=== PATIENT | female | born 1940 | race Two or more races ===

== ENCOUNTER → 2024-04-14 14:38 | Outpatient (REF) | payer MEDICARE, MEDICAID, SELFPAY | LOC: CLAB 14:38 | PROVIDERS: ATTENDING PHYSICIAN Surgery | DX: N64.52 Nipple discharge (principal); N63.0 Unspecified lump in unspecified breast | CPT/HCPCS: 88305 ==

== ENCOUNTER → 2024-06-21 11:05 | Outpatient (REF) | payer MEDICARE, MEDICAID, SELFPAY ==
--- NOTE | 2024-06-24 10:05 | OID.BR.INTR ---
OID Breast Navigator - Initial
- -
Date of Contact: 06/21/24
Met with patient and caregiver accompanying from [facility]. Patient has dementia. Will follow up as needed per protocol.
== END ==
LOC: WDC 11:05
PROVIDERS: ATTENDING PHYSICIAN Surgery
DX: N63.20 Unspecified lump in the left breast, unspecified quadrant (principal); N63.22 Unspecified lump in the left breast, upper inner quadrant
CPT/HCPCS: 88112

== ENCOUNTER 2024-06-29 17:30 | Inpatient (IN) | payer MEDICARE, OTHER, SELFPAY ==
[2024-06-29] VITALS (11 sets, daily range): BP systolic 98–135; BP diastolic 52–75
--- NOTE | 2024-06-29 13:24 | ED.GENMED ---
History of Present Illness
General
Chief Complaint: Breast Problem
Source: patient and records
Time Seen by Provider: 06/29/24 13:14
History of Present Illness
History of Present Illness:
83-year-old female with past medical history of dementia and chronic left hemiplegia status post left breast biopsy presenting to the ER for evaluation of significant erythema, edema and purulent drainage concerning for left breast abscess. Patient
had her biopsy done on June 23 and has reportedly been worsening since that time. Patient resides at [facility] and they sent the patient to the ER for further evaluation with anticipated admission for antibiotics, breast consultation and
interventional radiology for aspiration and drainage of suspected abscess. Patient is unable to provide any history due to her dementia. She is otherwise denying pain or any other concerns at this time
Past History
Past History
ED Past Medical History: Cancer and Other (Dementia, chronic left hemiplegia)
Social History
Tobacco: Non-smoker
Alcohol: None
Drug: None
Living: correction
Employment: Retired
Review of Systems
Review of Systems
All Other Systems: ROS reviewed and negative except as documented in HPI and ROS
Phy Exam
Physical Exam
Physical Exam:
GENERAL: Alert , in no apparent distress
EYE: conjunctiva clear
NECK: Supple
ENT: o/p clr, mmm.
CARDIAC: Regular rate and rhythm
LUNGS: Clear breath sounds bilaterally, no acute respiratory distress, no wheezes/rales/rhonchi
Chest wall: Exam was chaperoned by ED STEPHANE Espinoza -left breast is significantly edematous, erythematous with a bandage over the lateral aspect of the breast. Malodorous purulent drainage. Patient reports no pain at rest but moderate pain with
palpation
NEUROLOGICAL: Alert and oriented
SKIN: Warm and dry, skin intact.
MUSCULOSKELETAL: Chronic contracture to the left upper extremity. Easily palpable radial pulse
PSYCH: Normal and appropriate interaction.
Scores
Heart Failure Risk
Heart Failure Risk Score: Not Applicable
Heart Score for Chest Pain Patients
STEMI patient?: Not applicable
Withdrawal Assessment of Alcohol
Withdrawal Assessment Completed?: Not applicable
Course
Orders/Labs/Results
Orders:
Orders
06/29/24 13:31
Consult Interventional Radiology [IRAD CONSULT] Urgent
Consulting Provider: Todd Garay
Was physician already notified: Yes
Reason for Consult/Procedure: Left breast aspiration
Acknowledgement that appropriate orders are entered: Yes
Fluid Culture with Gram Stain Urgent
KARI Source: Fluid
Specimen Description:
Comment: left breast
06/29/24 14:06
Basic Metabolic Panel Urgent
Complete Blood Count/With Diff Urgent
Lactic Acid Q4H
Comment: CANCEL 2nd LACTIC ACID IF 1st LACTIC ACID IS LESS THAN 2
Blood Culture Urgent
KARI Source: Blood/Venous
Specimen Description:
06/29/24 14:08
Blood Culture Routine
KARI Source: Blood/Venous
Specimen Description:
06/29/24 14:47
0.9% Sodium Chloride 1000 ml [Nss] 1,000 ml IV BOLUS
06/29/24 17:30
Lactic Acid Q4H
Comment: CANCEL 2nd LACTIC ACID IF 1st LACTIC ACID IS LESS THAN 2
Abnormal Lab Results
06/29/24
14:06
WBC 17.5 H 10^3/uL
(4.8-10.8)
MCH 26.8 L pg
(27.0-31.0)
MCHC 32.3 L g/dL
(33.0-37.0)
MPV 10.9 H fL
(7.4-10.4)
Abs Immat Gran (auto) 0.1 H 10^3/uL
(0-0.05)
Absolute Neuts (auto) 13.5 H 10^3/uL
(1.4-6.5)
Absolute Monos (auto) 1.9 H 10^3/uL
(0.1-0.6)
Neutrophils % 77.1 H %
(42.2-75.2)
Lymphocytes % 10.1 L %
(20.5-51.1)
Monocytes % 10.6 H %
(1.7-9.3)
Sodium 133 L mmol/L
(135-145)
BUN 18 H mg/dl
(7-17)
Creatinine 0.5 L mg/dL
(0.6-1.0)
Glucose 108 H mg/dl
(70-99)
Lactic Acid 2.3 H mmol/L
(0.7-2.0)
06/29/24 14:06
06/29/24 14:06
Vital Signs
Initial and Last Documented VS:
Initial Vital Signs
Resp
18
06/29/24 13:14
Last Documented Vital Signs
Temp Pulse Resp BP Pulse Ox
98.4 F 98 19 115/59 97
06/29/24 14:26 06/29/24 14:26 06/29/24 14:26 06/29/24 14:26 06/29/24 14:26
MDM/Problems Addressed
Differential Diagnosis Includes:
Left breast abscess, cellulitis, malignancy negative
MDM/Problems Addressed:
83-year-old female presenting to the emergency department from [facility] to be evaluated with anticipated admission for left breast abscess/cellulitis. Will notify patient's breast surgeon, Dr. Spaulding, to see if any further testing is
required. I will also notify interventional radiology so we can obtain fluid cultures to initiate antibiotics. Patient will likely need admission to hospitalist service and they can consult infectious disease as necessary.
*Pulse Oximetry
Patient hypoxic: no
*Critical Care Note
Total Time (30-74mins, 75-104mins- exclusive of procedures): Not Applicable
Data Reviewed
Review of Other/Old Records Reveals: Records and Radiology Studies
Source: records and ambulance crew
Comment
Comment:
Patient's white blood cell count 17.5. Lactic acid 2.3. IV fluids were ordered with concern for sepsis
Patient Management
Discussion with other providers: Hospitalist and [employer] Deck[employer]
Escalation/DeEscalation of care consider admission/obs:
1335 - Spoke with Dr. Spaulding who is in agreement with treatment plan thus far. No further recommendations at this time. IR was also notified to help expedite aspiration so abx can be initiated.
Hospitalist team was notified and accepts for continued evaluation and treatment.
ED Attending Note
-
Portions of this chart may have been created with voice recognition software.� Occasional wrong word or��sound alike� substitutions may have occurred due to the inherent limitations of voice recognition software.
Discharge Plan
Departure
Patient Disposition: Admit
Date of Disposition: 06/29/24
Time of Disposition: 14:22
Presentation/result/management discussed w/ accepting MD/DO: Hospitalist
Discharge Problem:
Abscess of left breast, Cellulitis of left breast
Prescriptions:
No Action
sennosides [senna] 8.6 mg Tablet
8.6 mg PO QPM
acetaminophen [Tylenol] 325 mg Tablet
650 mg PO Q4HPRN PRN (Reason: mild pain/fever >100.4)
polyethylene glycol 3350 [Miralax] 17 gram Powder In Packet
17 g PO DAILY
sulfamethoxazole-trimethoprim [Bactrim DS] 800-160 mg Tablet
1 tab PO BID
Patient Comments:
06/29/24: starting today, take 1 tab twice a day for 7 days
magnesium hydroxide [Milk of Magnesia] 400 mg/5 mL Suspension
30 ml PO DAILYPRN PRN (Reason: constipation)
bisacodyl [Dulcolax (bisacodyl)] 10 mg Suppository
10 mg KS DAILYPRN PRN (Reason: constipation, mom ineffective)
Fleet Enema 19-7 gram/118 mL Enema
118 ml KS DAILYPRN PRN (Reason: if dulcolax ineffective)
Interventions
Interventions:
*Risk Screen - Suicide Last Done: 06/29/24 13:17
*General Assessment Last Done: 06/29/24 13:17
*Neglect/Abuse Screening Last Done: 06/29/24 13:17
*ED COVID-19 Vaccine History Last Done: 06/29/24 13:17
ED-Skin Assessment Last Done: 06/29/24 13:17
Discharge Date and Time
Print Language: PALESTINIAN
[2024-06-29 14:20] LABS: % Basophils 0.5 % (0-2); % Eosinophils 1.2 % (0-6); % Immature Granulocytes 0.5 % (0-0.5); % Lymphocytes 10.1 % (20.5-51.1); % Monocytes 10.6 % (1.7-9.3); % Neutrophils 77.1 % (42.2-75.2); Absolute Basophils 0.1 10^3/uL (0-0.2); Absolute Eosinophils 0.2 10^3/uL (0-0.7); Absolute Immature Granulocytes 0.1 10^3/uL (0-0.05); Absolute Lymphocytes 1.8 10^3/uL (1.2-3.4); Absolute Monocytes 1.9 10^3/uL (0.1-0.6); Absolute Neutrophils 13.5 10^3/uL (1.4-6.5); Hematocrit 37.5 % (37.0-47.0); Hemoglobin 12.1 g/dL (12.0-16.0); Mean Corp Hgb Conc. 32.3 g/dL (33.0-37.0); Mean Corpuscular Hgb 26.8 pg (27.0-31.0); Mean Platelet Volume 10.9 fL (7.4-10.4); Nucleated Red Blood Cells % 0 %; Platelet Count 399 10^3/uL (130-400); Red Blood Cell Count 4.52 10^6/uL (4.20-5.40); Red Cell Dist. Width 14.1 % (11.5-14.5); White Blood Cell Count 17.5 10^3/uL (4.8-10.8)
[2024-06-29 14:42] LABS: Lactic Acid 2.3 mmol/L (0.7-2.0)
[2024-06-29 14:43] LABS: Blood Urea Nitrogen 18 mg/dl (7-17); Calcium 9.1 mg/dl (8.4-10.2); Carbon Dioxide 27 mmol/L (22-30); Chloride 101 mmol/L (98-107); Estimated Creatinine Clearance 70 ml/min; Glucose 108 mg/dl (70-99); Sodium 133 mmol/L (135-145); eGFR > 60.00
[2024-06-29] MEDS: NSS 1000 IV (15:55)
--- NOTE | 2024-06-29 16:58 | HPS.HSE ---
Family Physician
-
Family Physician: Mateto Shah DO
Chief Complaint
-
Left breast cellulitis
History of Present Illness
Patient is 83 years old female is in the local nursing facility with dementia and left hemiplegia, who underwent left breast cyst biopsy and drain on June 23. Patient noted to develop significant erythema and induration in the site of biopsy with
later purulent discharge concerning for left breast abscess. Patient was sent to the emergency room. Presented afebrile hemodynamically stable, nontoxic-appearing. Patient was seen by interventional radiology and underwent guided biopsy with DAVID
drain placed.
Patient demented and not able to provide any additional history.
Medical History
Past Medical History
Past Medical History: Reports Other (Left hemiplegia? CVA. Dementia, COVID)
Past Surgical History: Reports None
Social History
Tobacco: Non-smoker
Alcohol: None
Drug: None
Personal: Single
Living: Jail
Family History
Family History: Not pertinent
Allergies / Home Medications
Allergies reflects when Allergies were last updated in [facility].
Home Medications with original date entered in [facility]
Allergy/Medication List:
Allergies
Allergy/AdvReac Type Severity Reaction Status Date / Time
No Known Allergies Allergy Verified 06/29/24 14:50
Home Medications
acetaminophen 325 mg tablet (Tylenol) 650 mg PO Q4HPRN PRN mild pain/fever >100.4 06/29/24
bisacodyl 10 mg rectal suppository (Dulcolax (bisacodyl)) 10 mg MI DAILYPRN PRN constipation, mom ineffective 06/29/24
magnesium hydroxide 400 mg/5 mL oral suspension (Milk of Magnesia) 30 ml PO DAILYPRN PRN constipation 06/29/24
polyethylene glycol 3350 17 gram oral powder packet (Miralax) 17 g PO DAILY 06/29/24
sennosides 8.6 mg tablet (senna) 8.6 mg PO QPM 06/29/24
sodium phosphates 19 gram-7 gram/118 mL enema (Fleet Enema) 118 ml MI DAILYPRN PRN if dulcolax ineffective 06/29/24
sulfamethoxazole 800 mg-trimethoprim 160 mg tablet (Bactrim DS) 1 tab PO BID 06/29/24
Review of Systems
-
A 12 point ROS was completed and negative except as noted: Yes
Physical Exam
Vital Signs
Vital Signs
Temp Pulse Resp BP Pulse Ox
98.4 F 95 23 121/59 91
06/29/24 14:26 06/29/24 16:30 06/29/24 16:30 06/29/24 16:15 06/29/24 16:01
Physical Exam
General: Well Developed, Well Nourished and No Apparent Distress
HEENT: NormoCephalic, Moist mucous membranes and Atraumatic
Respiratory: Clear
Cardiac: S1/S2 and Regular Rhythm; No Murmur or Rub
Breast: Other (Left breast with significant erythema and induration, wound with DAVID drain in place with hemorrhagic fluid)
GI: Soft, Non Tender, Non Distended and Normal Bowel Sounds; No Organomegaly
Rectal: Deferred by Provider
Musculoskeletal: No Clubbing, No Cyanosis and No Edema
Skin: No Rash
Neuro: Awake, Alert, Oriented (To name only) and Other (Left hemiparesis)
Laboratory Results
-
06/29/24 14:06
06/29/24 14:06
Laboratory Results
Lactic Acid 2.3 mmol/L (0.7-2.0) H 06/29/24 14:06
Impression/Plan
-
IMPRESSION:
Presentation with left breast abscess and cellulitis.
�S/p left breast cyst aspiration on 06/23 pathology consistent with acellular specimen with likely longstanding cyst, malignancy could not be excluded.
Mild hyponatremia sodium 133
Other conditions:
Chronic left hemiparesis following by COVID episode in 2021. According to son not documented CVA including long-term records.
Advanced dementia vascular versus senile type pain
Protein calorie malnutrition
PLAN:
Left breast cellulitis with abscess drained by interventional radiology on 06/29
Status post left breast cyst biopsy pathology as above
Nontoxic, nonseptic on presentation.
Broad-spectrum antibiotics vancomycin/Zosyn pending cultures
Consider ID consultation
Follow WBC count
Mild hyponatremia sodium 133
Appears to be euvolemic
Follow BMP in the morning.
If worsening consider further workup.
Advanced dementia
Chronic left hemiplegia for
Supportive care
CODE STATUS DNR
DVT prophylaxis heparin
--- NOTE | 2024-06-29 18:26 | PTCARENOTE ---
pt admitted from ED AO x1. Lungs diminished b/l shallow, poor effort. on RA. abd soft NT. incont b&B trace b/l pedal edema weak pp. Pt has LUE and hand contracture. lLeft lateral breast red and DAVID drain site dressing CDI, DAVID full with 50cc of SS
drainage
[2024-06-29] MEDS: SENOKOT 8.6 MG PO (19:46)
[2024-06-29] MEDS: VANCOCIN 535 MG IV (19:46)
[2024-06-29] MEDS: HEPARIN 5000 UNITS SC (19:47)
[2024-06-29] MEDS: ZOSYN 50 IV (19:48)
[2024-06-29 20:09] LABS: Lactic Acid 1.6 mmol/L (0.7-2.0)
--- NOTE | 2024-06-29 21:01 | PHA.VAN.IN ---
Assessment
- Assessment
Renal Function: Unknown baseline
Concomitant Antimicrobials: ZOSYN
- Previous Dosing Experience
Previous Regimen: NONE
AUC Dosing Plan
- Dosing Variables
Dosing Weight (kg): 74.5
Dosing CrCl (ml/min): 70
Vd coefficient (L/kg): 0.7
- Empiric Dosing
Initial / Loading Dose: 1750MG
Maintenance Regimen: 750MG IV Q12H
Estimated AUC (mcg*h/mL): 475
Estimated Peak (mcg*h/mL): 27.3
Estimated Trough (mcg/ml): 13.7
Estimated Half Life (H): 11.1
Pharmacokinetics Vancomycin I
- -
Patient Age: 83
Patient Sex: Female
Vancomycin Day #: 1
Indication: Skin And Soft Tissue ([L] BREAST CELLULITIS)
Requesting Provider: EUGENIO
Height / Weight:
Height 5 ft 8 in
Actual Weight 74.5 kg
- Vital Signs / Lab Results
Temp Pulse Resp BP Pulse Ox
98.8 F 110 18 135/75 95
06/29/24 18:26 06/29/24 18:26 06/29/24 18:26 06/29/24 18:26 06/29/24 18:26
Lab Results - Hematology
06/29/24
14:06
WBC 17.5 H
Lab Results - Chemistry
06/29/24
14:06
BUN 18 H
Creatinine 0.5 L
Estimated Creat Clear 70
06/29/24 06/29/24
14:06 19:50
Lactic Acid 2.3 H 1.6
Microbiology Results
06/29/24 15:33 Gram Stain - Preliminary
Breast - Left
[2024-06-30] MEDS: ZOSYN 50 IV ×4 (01:50→20:28)
[2024-06-30] MEDS: VANCOCIN 150 IV ×2 (05:41→17:45)
[2024-06-30 07:47] VITALS: BP 114/57
[2024-06-30] MEDS: MIRALAX 17 GRAMS PO (08:50)
[2024-06-30] MEDS: HEPARIN 5000 UNITS SC ×2 (08:50→20:26)
--- NOTE | 2024-06-30 12:03 | W.PN.HOSP.TC ---
Today's Communication/Plan
-
await cultures
cont vanco/zosyn
consider ID consult
Assessment / Plan
Assessment / Plan
pt is an 83 year old female
Left breast cellulitis with abscess ( Status post left breast cyst biopsy)--drained by interventional radiology on 06/29--cultures pending--cont vanco/zosyn--Consider ID consultation
Mild hyponatremia sodium 133--Appears to be euvolemic
Advanced dementia--daughter is POA
Chronic left hemiplegia for Supportive care--PT/OT
Chronic left hemiparesis following by COVID episode in 2021. According to son not documented CVA including [facility] records
Protein calorie malnutrition
CODE STATUS DNR
DVT prophylaxis heparin
Anticipated Discharge: > 48 hours
Subjective/Interval History
-
Date of Service: June 30, 2024
pt without c/o
Objective Data
-
Vital Signs:
max temp for 24 hours
06/29/24
13:15
Temp 99.1 F
Vital Signs
Temp Pulse Resp BP Pulse Ox
98.3 F 83 16 114/57 97
06/30/24 07:47 06/30/24 07:47 06/30/24 07:47 06/30/24 07:47 06/30/24 07:47
I&O
06/29/24 06/30/24 07/01/24
06:59 06:59 06:59
Intake Total 850 / 850
Output Total 340 / 340
Balance 510 / 510
Review of Systems
-
All other systems: Reviewed and negative
Physical Exam
-
General: Well Developed, Well Nourished and No Apparent Distress
HEENT: Normocephalic and Atraumatic
Respiratory: Clear to Auscultation; Negative Wheezes or Rhonchi
Cardiac: Regular Rhythm and S1/S2; Negative Murmur
Breast: Other (left breast firm and red, tender to touch--DAVID drain in place)
GI: Soft, Nontender, Nondistended and Normal Bowel Sounds
Musculoskeletal: No Clubbing, No Cyanosis and No Edema
Neuro: Awake
--- NOTE | 2024-06-30 12:28 | CM ---
Addendum entered by MAYE Connolly 06/30/24 12:41:
#To patient's floor, .
Original Note:
Reviewed chart, spoke with Yariel in admissions at [facility] to obtain information for assessment. Yariel confirmed that she is an MA-15 day bed hold. She transitioned call to floor so that baseline level of functioning could be obtained.
Spoke with one of patient's RNs, Mo, who stated that patient is fully dependent for bed mobility, Bernice Chair and does not ambulate, nathan for transfers and set up for eating. She was unsure of what patient's diet was previously.
Placed a call to patient's daughter, Cody on chart, who confirmed that family would like for patient to return to [facility] when medically cleared for discharge.
Plan: Case management will continue to follow and assist with discharge planning. Back to [facility] when patient is medically stable.
--- NOTE | 2024-06-30 12:30 | PHA.VAN.FU ---
Vancomycin Assessment / Plan
- Assessment
Renal Function: No New Labs Today
In the past 24 hrs, patient has been: Afebrile
Concomitant Antimicrobials: piperacillin/tazobactam
- Dosing Plan
Continue: Vanc 750mg Q12H
- Monitoring Plan
No level(s) ordered at this time: consider levels in next few days
- Follow Up
Pharmacy will continue to follow.
Vancomycin Follow UP
- -
Patient Age: 83
Patient Sex: Female
Vancomycin Day #: 2
Indication: Skin And Soft Tissue
Requesting Provider: Dr. Crowe
Pertinent Antimicrobial Allergies:
NKDA
Height / Weight:
Height 5 ft 8 in
Actual Weight 74.5 kg
- Vital Signs / Lab Results
Temp Pulse Resp BP Pulse Ox
98.3 F 83 16 114/57 97
06/30/24 07:47 06/30/24 07:47 06/30/24 07:47 06/30/24 07:47 06/30/24 07:47
Lab Results - Hematology
06/29/24
14:06
WBC 17.5 H
Lab Results - Chemistry
06/29/24
14:06
BUN 18 H
Creatinine 0.5 L
Estimated Creat Clear 70
06/29/24 06/29/24
14:06 19:50
Lactic Acid 2.3 H 1.6
Microbiology Results
06/29/24 15:33 Wound Culture - Preliminary
Breast - Left Gram Stain - Preliminary
--- NOTE | 2024-06-30 14:05 | PTOTSP ---
Per chart review, the patient is fully dependent and requires Maryam lift at baseline, non-ambulatory. No functional goals, therefore no PT needs. Will sign off.
[2024-06-30 15:35] VITALS: BP 117/65
--- NOTE | 2024-06-30 15:44 | W.PN.UPDATE ---
Update Note
Progress Note Update
The patient is an 83 Y/O female known to me who has history of multiple co-morbidities including severe dementia. Family accompanied her. She is a NH resident and staff noticed left breast bloody discharge. She had a core biopsy showing benign
inflammatory changes then underwent an ultrasound-directed aspiration showing a few atypical degenerated cells but no mason diagnosis of carcinoma. The NH called Dr. Esqueda Lala night and said the breast was red and swollen. We directed her to
the ED where a repeat US showed a large complex fluid collection. Her WBC were elevated and she had no signs of sepsis. She underwent IR aspiration and drain placement. Large amount of bloody pus was described and cultures sent. Preliminary report
shows no growth to date. Pt is on broad spectrum antibiotics. This abscess will need to be treated and resolved and then we can regroup about any further breast intervention.
[2024-06-30] MEDS: SENOKOT 8.6 MG PO (17:45)
[2024-06-30 23:15] VITALS: BP 108/52
[2024-07-01] MEDS: ZOSYN 50 IV ×3 (03:07→13:40)
[2024-07-01] MEDS: VANCOCIN 150 IV ×2 (05:55→17:04)
[2024-07-01 07:33] LABS: Hematocrit 32.3 % (37.0-47.0); Hemoglobin 10.8 g/dL (12.0-16.0); Mean Corp Hgb Conc. 33.4 g/dL (33.0-37.0); Mean Corpuscular Hgb 27.1 pg (27.0-31.0); Mean Corpuscular Volume 81.2 fL (81.0-99.0); Mean Platelet Volume 10.9 fL (7.4-10.4); Platelet Count 330 10^3/uL (130-400); Red Blood Cell Count 3.98 10^6/uL (4.20-5.40)
[2024-07-01 07:53] VITALS: BP 114/67
[2024-07-01 08:13] LABS: Blood Urea Nitrogen 11 mg/dl (7-17); Calcium 8.5 mg/dl (8.4-10.2); Carbon Dioxide 24 mmol/L (22-30); Chloride 104 mmol/L (98-107); Estimated Creatinine Clearance 70 ml/min; Glucose 123 mg/dl (70-99); Magnesium 2.1 mg/dl (1.6-2.3); Potassium 3.9 mmol/L (3.5-5.1); Sodium 134 mmol/L (135-145); eGFR > 60.00
--- NOTE | 2024-07-01 08:24 | PHA.VAN.FU ---
Vancomycin Assessment / Plan
- Assessment
Renal Function: Stable
WBC's are: WNL
In the past 24 hrs, patient has been: Afebrile
Concomitant Antimicrobials: piperacillin/tazobactam
- Dosing Plan
Continue: Vanc 750mg Q12H
- Monitoring Plan
No level(s) ordered at this time: consider levels in next few days
- Follow Up
Pharmacy will continue to follow.
Vancomycin Follow UP
- -
Patient Age: 83
Patient Sex: Female
Vancomycin Day #: 3
Indication: Skin And Soft Tissue
Requesting Provider: Dr. Crowe
Pertinent Antimicrobial Allergies:
NKDA
Height / Weight:
Height 5 ft 8 in
Actual Weight 74.5 kg
- Vital Signs / Lab Results
Temp Pulse Resp BP Pulse Ox
98.4 F 82 16 114/67 95
07/01/24 07:53 07/01/24 07:53 07/01/24 07:53 07/01/24 07:53 07/01/24 07:53
Lab Results - Hematology
06/29/24 07/01/24
14:06 07:13
WBC 17.5 H 10.0
Lab Results - Chemistry
06/29/24 07/01/24
14:06 07:13
BUN 18 H 11
Creatinine 0.5 L 0.6
Estimated Creat Clear 70 70
06/29/24 06/29/24
14:06 19:50
Lactic Acid 2.3 H 1.6
Microbiology Results
06/29/24 14:08 Blood Culture - Preliminary
Blood/Venous No Growth in 24 hours- Final report to follow
06/29/24 14:06 Blood Culture - Preliminary
Blood/Venous No Growth in 24 hours- Final report to follow
06/29/24 15:33 Wound Culture - Preliminary
Breast - Left Gram Stain - Preliminary
[2024-07-01] MEDS: HEPARIN 5000 UNITS SC ×2 (08:25→20:26)
[2024-07-01] MEDS: MIRALAX 17 GRAMS PO (08:25)
--- NOTE | 2024-07-01 10:12 | CM ---
Sent referral over to Yariel in admissions at [facility] for her review.
Plan: Case management will continue to follow and assist with discharge planning. Patient will return to [facility] when she is cleared for discharge.
--- NOTE | 2024-07-01 10:27 | W.PN.HOSP.TC ---
Addendum entered and electronically signed by Mckayla Early MD 07/01/24 13:50:
# No nutritional deficiency
Original Note:
Today's Communication/Plan
-
see A/P
Assessment / Plan
Assessment / Plan
A/P:
# Left breast cellulitis with abscess status post left breast cyst biopsy
L breast abscess drained by interventional radiology on 06/29
culture positive for MRSA
Cont vanco/zosyn
ID consult
# Mild hyponatremia
# Advanced dementia
daughter is POA
# Chronic left hemiparesis following by COVID in 2021. According to son not documented CVA [facility]
PT/OT
# Protein calorie malnutrition
CODE STATUS DNR
DVT prophylaxis heparin
Anticipated Discharge: 24 - 48 hours
Subjective/Interval History
-
Date of Service: July 01, 2024
Objective Data
-
Labs:
Laboratory Results
07/01/24
07:13
WBC 10.0
Hgb 10.8 L
Hct 32.3 L
Plt Count 330
Sodium 134 L
Potassium 3.9
Chloride 104
Carbon Dioxide 24
BUN 11
Creatinine 0.6
Glucose 123 H
Calcium 8.5
Vital Signs:
Vital Signs
Temp Pulse Resp BP Pulse Ox
36.9 C 82 16 114/67 95
07/01/24 07:53 07/01/24 07:53 07/01/24 07:53 07/01/24 07:53 07/01/24 07:53
I&O
06/30/24 07/01/24 07/02/24
06:59 06:59 06:59
Intake Total 850 / 850 1330 / 1330
Output Total 340 / 340 90 / 90
Balance 510 / 510 1240 / 1240
Review of Systems
-
All other systems: Reviewed and negative
Physical Exam
-
General: Well Developed, Well Nourished, No Apparent Distress, Comfortable and Conversant
HEENT: Normocephalic and Atraumatic
Respiratory: Clear to Auscultation and Non Labored Respirations; Negative Accessory Resp Muscle Use
Cardiac: Regular Rhythm and S1/S2; Negative Murmur
Breast: Other (left breast with DAVID drain in place)
GI: Soft, Nontender, Nondistended and Normal Bowel Sounds
Musculoskeletal: No Clubbing, No Cyanosis and No Edema
Neuro: Awake and Alert
Psych: Calm and Apparent Dementia; Negative Intact Judgement/Insight
Data Reviewed
-
Labs: Labs Reviewed by me
--- NOTE | 2024-07-01 12:04 | PN.CDI ---
CDI
- -
CDI:
Physician Documentation Request
Admit Date: 06/29/24 17:30
Dear Doctor Sharath,
Documentation includes the diagnosis of Protein calorie malnutrition.
To ensure the quality of the medical record, based on the above information and the recognized standards for malnutrition , could you please verify in your progress notes which of the following responses best reflects the patient's nutritional
status:
(Specify severity) Malnutrition is/was present and is a clinical diagnosis (please provide additional support in the medical record)
No nutritional deficiency
Other (please specify)
Baring Criteria ([facility] Hospitalist 2017)
2 or more criteria must be present for either
non severe or severe malnutrition
Note that the criteria differs related to the
presence of an acute or chronic illness
Acute Illness Chronic Illness
Energy Intake Non Severe: <75% for >7 days Non Severe: <75% for >1 month
Severe: <50% for >5 days Severe: <75% for >1 month
Weight Loss Non Severe: 1-2% over 1 week Non Severe: 5% over 1 month
5% over 1 month 7.5% over 3 months
7.5% over 3 months 10% over 6 months
1 year N/A 20% over 1 year
Severe: >2% over 1 week Severe: >5% over 1 month
>5% over 1 month >7.5% over 3 months
>7.5% over 3 months >10% over 6 months
1 year N/A >20% over 1 year
Body Fat Non Severe: Mild Decrease Non Severe: Mild Loss
Severe: Moderate Decrease Severe: Severe Loss
Muscle Mass Non Severe: Mild Decrease Non Severe: Mild Loss
Severe: Moderate Decrease Severe: Severe Loss
Fluid Accumulation Non Severe: Mild Accumulation Non Severe: Mild Accumulation
Severe: Moderate to severe Severe: Moderate to severe
accumulation accumulation
Reduced Roller Coaster Engineer Strength Non Severe: N/A Non Severe: N/A
Severe: Measurably reduced Severe: Measurably reduced
Additional criteria that can be used to Determine if Mild or Moderate Malnutrition ([employer]ck Manual 2018)
Mild Moderate Severe
Albumin gm/dl <3.0 gm/dl <2.5 gm/dl <2.0 gm/dl
Pre Albumin mg/dl <15 gm/dl <10 mg/dl <5.0 mg/dl
BMI <18.5 <17 <16
Use of terms such as suspected, likely, concern for, or probable (associated with a specific diagnosis that is being evaluated, monitored, or treated as if it exists) are acceptable and can be coded in the inpatient setting, when documented at the
time of discharge.
Thank you,
Sophie Colon RN BSN
CDI Specialist
tiger text
Please use your independent medical judgment in providing your response.
[2024-07-01 15:00] VITALS: BP 123/76
--- NOTE | 2024-07-01 15:47 | CON.ID ---
Addendum entered and electronically signed by Annie Stevens MD 07/01/24 17:14:
I personally performed a history and physical exam of the patient and discussed management with the resident. I reviewed the resident's note and agree with the documented findings and plan of care HPI/CC with the following additions/corrections. I
reviewed the medication history personally.
The surgical pathology outpatient was not consistent with malignancy.
Note she was started on bactrim outpatient prior to arrival here.
My physical exam is consistent with Dr Middleton.
A&P
Surgical site infection of L breast biopsy site with underlying abscess
-Wound/abscess culture: Few presumptive MRSA
-06/29 Blood cultures: NGTD
-Drain output 90 mL in past 24 hours
-stopped Zosyn. Continue vancomycin - appreciate pharmacy assistance with dosing
- plan eventual deescalation to orals when sensitivies back
-Contact precautions for MRSA
-follow clinically
Original Note:
Documented by User: Delilah Sims MD, Resident 07/01/24 16:20
Chief Complaint / Past History
Chief Complaint
Left breast abscess
History of Present Illness
84-year-old female with history of CVA with left hemiplegia, dementia, presented with significant erythema, edema, purulent discharge of left breast status post breast biopsy on 06/21 for left breast cyst. This was followed by progressive
redness/swelling/purulent discharge. Her breast surgeon Dr. Spaulding was informed about this and she was sent to the hospital for IR to perform drainage of lesion. On arrival, she was afebrile with stable vitals, WBC 17.5 with left shift,
creatinine 0.5, lactic acid 2.3. Concern for breast abscess. In the ED IV fluid was started. Patient was seen by IR and DAVID drain was placed to 60 mL of purulent fluid was obtained. Wound culture presumptive MRSA and patient was started on
vancomycin and Zosyn.
Past History
Past Medical History: CVA (With left hemiplegia) and Other (Dementia)
Past Surgical History: None
Allergy History:
No Known Allergies Allergy (Verified 06/29/24 14:50)
Social History
Tobacco: Non-Smoker
Alcohol: None
Drug: None
Living: Residential ([facility])
Family History
Family History: Not Pertinent
Review of Systems
Review of Systems
General: Other (Unable to obtain full review of systems due to patient's condition)
Vital Signs
Temp Pulse Resp BP Pulse Ox
98.4 F 82 16 114/67 95
07/01/24 07:53 07/01/24 07:53 07/01/24 07:53 07/01/24 07:53 07/01/24 07:53
Physical Exam
Physical Exam
Constitutional: No Acute Distress and Comfortable
Cardiovascular: Regular Rate and S1/S2; Negative Murmur, Rub or Peripheral Edema
Pulmonary: Clear and Non Labored; Negative Wheezes, Rales or Rhonchi
Gastrointestinal: Soft, Non Tender, Non Distended, Normal Bowel Sounds, No Rebound and No Guarding
Genito-Urinary: Negative Suprapubic Tenderness
Skin: Rash (Small area of mild redness on R breast, nontender, no swelling. ) and Other (Tenderness of left breast, mild erythema. Peu d'orange texture of skin of left breast with noted induration. DAVID drain with cannula in left breast - opaque
serosanguineous fluid in bulb.)
Neurological: Awake and Alert
Psychological: Calm
Lines: PIV (Dorsum of distal forearm. Not erythematous, no swelling)
Lab / Diagnostic Study Results
07/01/24 07:13
07/01/24 07:13
Abs Immat Gran (auto) 0.1 10^3/uL (0-0.05) H 06/29/24 14:06
Absolute Neuts (auto) 13.5 10^3/uL (1.4-6.5) H 06/29/24 14:06
Absolute Lymphs (auto) 1.8 10^3/uL (1.2-3.4) 06/29/24 14:06
Absolute Monos (auto) 1.9 10^3/uL (0.1-0.6) H 06/29/24 14:06
Absolute Basos (auto) 0.1 10^3/uL (0-0.2) 06/29/24 14:06
Immature Gran % 0.5 % (0-0.5) 06/29/24 14:06
Neutrophils % 77.1 % (42.2-75.2) H 06/29/24 14:06
Lymphocytes % 10.1 % (20.5-51.1) L 06/29/24 14:06
Monocytes % 10.6 % (1.7-9.3) H 06/29/24 14:06
Eosinophils % 1.2 % (0-6) 06/29/24 14:06
Basophils % 0.5 % (0-2) 06/29/24 14:06
Lactic Acid 1.6 mmol/L (0.7-2.0) 06/29/24 19:50
Microbiology Results
Micro:
06/29/24 14:06 Blood Culture - Preliminary
Blood/Venous No Growth in 48 hours- Final report to follow
06/29/24 14:08 Blood Culture - Preliminary
Blood/Venous No Growth in 48 hours- Final report to follow
06/29/24 19:02 MRSA Screen - Final
Nose No Methicillin Resistant Staphylococcus aureus isolated.
06/29/24 15:33 Wound Culture - Preliminary
Breast - Left Staph aureus MRSA
Gram Stain - Preliminary
Assessment / Plan
83-year-old female with history of CVA with left hemiplegia, dementia, who presented with surgical site infection of left breast, breast abscess status post DAVID drainage insertion.
Surgical site infection s/p biopsy/drainage of L breast cyst
Breast abscess
Status post DAVID drainage
-Wound/abscess culture: Few presumptive MRSA
-Blood cultures x 2 06/29: NGTD
-MRSA screen: Negative
-Drain output 90 mL in past 24 hours
-Discontinue Zosyn. Continue vancomycin 750 mg IV every 12 for now.
-Follow wound culture and blood cultures, drain output.
-Contact precautions for MRSA
-Patient is non-toxic appearing. Will follow clinical status

Documented by User: Annie Stevens MD 07/01/24 17:08
Consultation
-
Date/Time Consultation Requested: 07/01/24 10:29
Date/Time Consultation Performed: 07/01/24 17:07
Requesting Provider: Dr Early
Performing Provider: Dr Stevens
Reason for Consultation: breast abscess
[2024-07-01] MEDS: SENOKOT 8.6 MG PO (17:04)
[2024-07-01 23:05] VITALS: BP 122/60
[2024-07-02] MEDS: VANCOCIN 150 IV ×2 (06:15→18:02)
[2024-07-02 07:00] VITALS: BP 110/59
[2024-07-02] MEDS: HEPARIN 5000 UNITS SC ×2 (07:41→20:15)
[2024-07-02] MEDS: MIRALAX 17 GRAMS PO (07:42)
[2024-07-02 08:03] LABS: Hematocrit 33.7 % (37.0-47.0); Hemoglobin 11.2 g/dL (12.0-16.0); Mean Corp Hgb Conc. 33.2 g/dL (33.0-37.0); Mean Corpuscular Hgb 26.9 pg (27.0-31.0); Mean Platelet Volume 10.7 fL (7.4-10.4); Platelet Count 367 10^3/uL (130-400); Red Blood Cell Count 4.16 10^6/uL (4.20-5.40); White Blood Cell Count 9.5 10^3/uL (4.8-10.8)
[2024-07-02 08:43] LABS: Blood Urea Nitrogen 9 mg/dl (7-17); Calcium 8.8 mg/dl (8.4-10.2); Carbon Dioxide 25 mmol/L (22-30); Chloride 104 mmol/L (98-107); Estimated Creatinine Clearance 70 ml/min; Glucose 135 mg/dl (70-99); Potassium 3.8 mmol/L (3.5-5.1); Sodium 135 mmol/L (135-145); eGFR > 60.00
--- NOTE | 2024-07-02 09:05 | PHA.VAN.FU ---
Vancomycin Assessment / Plan
- Assessment
Renal Function: Stable
WBC's are: WNL
In the past 24 hrs, patient has been: Afebrile
- Dosing Plan
Continue: 750MG Q12H
- Monitoring Plan
No level(s) ordered at this time: CONSIDER FOR THURSDAY IF NOT DISCHARGED
- Follow Up
Pharmacy will continue to follow.
Vancomycin Follow UP
- -
Patient Age: 83
Patient Sex: Female
Vancomycin Day #: 4
Indication: Skin And Soft Tissue
Requesting Provider: Dr. Crowe
Pertinent Antimicrobial Allergies:
NKDA
Height / Weight:
Height 5 ft 8 in
Actual Weight 74.5 kg
- Vital Signs / Lab Results
Temp Pulse Resp BP Pulse Ox
98.6 F 77 18 110/59 100
07/02/24 07:00 07/02/24 07:00 07/02/24 07:00 07/02/24 07:00 07/02/24 07:00
Lab Results - Hematology
06/29/24 07/01/24 07/02/24
14:06 07:13 07:20
WBC 17.5 H 10.0 9.5
Lab Results - Chemistry
06/29/24 07/01/24 07/02/24
14:06 07:13 07:20
BUN 18 H 11 9
Creatinine 0.5 L 0.6 0.5 L
Estimated Creat Clear 70 70 70
06/29/24 06/29/24
14:06 19:50
Lactic Acid 2.3 H 1.6
Microbiology Results
06/29/24 15:33 Wound Culture - Final
Breast - Left Staph aureus MRSA
Gram Stain - Final
06/29/24 14:06 Blood Culture - Preliminary
Blood/Venous No Growth in 48 hours- Final report to follow
06/29/24 14:08 Blood Culture - Preliminary
Blood/Venous No Growth in 48 hours- Final report to follow
06/29/24 19:02 MRSA Screen - Final
Nose No Methicillin Resistant Staphylococcus aureus isolated.
--- NOTE | 2024-07-02 10:31 | W.PN.HOSP.TC ---
Today's Communication/Plan
-
see A/P
Assessment / Plan
Assessment / Plan
A/P:
# Left breast cellulitis with abscess status post left breast cyst biopsy
L breast abscess drained by interventional radiology on 06/29
wound culture positive for MRSA
Cont vanco, off Zosyn
Appreciate ID input
# Mild hyponatremia
# Advanced dementia
daughter is POA
# Chronic left hemiparesis following by COVID in 2021. According to son not documented CVA including assisted records
PT/OT
# Protein calorie malnutrition
CODE STATUS DNR
DVT prophylaxis heparin
Anticipated Discharge: 24 - 48 hours
Subjective/Interval History
-
Date of Service: July 02, 2024
Objective Data
-
Labs:
Laboratory Results
07/02/24
07:20
WBC 9.5
Hgb 11.2 L
Hct 33.7 L
Plt Count 367
Sodium 135
Potassium 3.8
Chloride 104
Carbon Dioxide 25
BUN 9
Creatinine 0.5 L
Glucose 135 H
Calcium 8.8
Vital Signs:
Vital Signs
Temp Pulse Resp BP Pulse Ox
37.0 C 77 18 110/59 100
07/02/24 07:00 07/02/24 07:00 07/02/24 07:00 07/02/24 07:00 07/02/24 07:00
I&O
07/01/24 07/02/24 07/03/24
06:59 06:59 06:59
Intake Total 1330 / 1330 5 / 5
Output Total 90 / 90
Balance 1240 / 1240 5 / 5
Review of Systems
-
All other systems: Reviewed and negative
Physical Exam
-
General: Well Developed, Well Nourished, No Apparent Distress, Comfortable and Conversant
HEENT: Normocephalic and Atraumatic
Respiratory: Clear to Auscultation and Non Labored Respirations; Negative Accessory Resp Muscle Use
Cardiac: Regular Rhythm and S1/S2; Negative Murmur
Breast: Other (left breast with DAVID drain in place)
GI: Soft, Nontender, Nondistended and Normal Bowel Sounds
Musculoskeletal: No Clubbing, No Cyanosis and No Edema
Neuro: Awake and Alert
Psych: Calm and Apparent Dementia; Negative Intact Judgement/Insight
Data Reviewed
-
Labs: Labs Reviewed by me
--- NOTE | 2024-07-02 11:04 | W.PN.ID1 ---
Date of Service
Date of Service: July 02, 2024
Today's Communication
Continue Vancomcyin
Assessment / Plan
83-year-old female with history of CVA with left hemiplegia, dementia, who presented with surgical site infection of left breast, breast abscess status post DAVID drainage insertion.
Surgical site infection s/p biopsy/drainage of L breast cyst
Breast abscess
Status post DAVID drainage
-Wound/abscess culture: MRSA
-Blood cultures x 2 06/29: NGTD
-MRSA screen: Negative
-Drain output 90 mL in past 24 hours
-Continue vancomycin IV
-Contact precautions for MRSA
Chief Complaint
-: Other (breast abscess)
Subjective / Review of Systems
No pain.
Vital Signs / Physical Exam
Vital Signs
Vital Signs
Temp Pulse Resp BP Pulse Ox
98.6 F 77 18 110/59 100
07/02/24 07:00 07/02/24 07:00 07/02/24 07:00 07/02/24 07:00 07/02/24 07:00
Physical Exam
Constitutional: No Acute Distress and Comfortable
Wound: Other (Left breast wound dressing dry, no breast erythema)
Objective Data
Lab Data
Lab Results
07/02/24 07:20
07/02/24 07:20
Estimated Creat Clear 70 ml/min 07/02/24 07:20
Lactic Acid 1.6 mmol/L (0.7-2.0) 06/29/24 19:50
Most recent labs reviewed.
Micro Results:
06/29/24 15:33 Wound Culture - Final
Breast - Left Staph aureus MRSA
Gram Stain - Final
06/29/24 14:06 Blood Culture - Preliminary
Blood/Venous No Growth in 48 hours- Final report to follow
06/29/24 14:08 Blood Culture - Preliminary
Blood/Venous No Growth in 48 hours- Final report to follow
06/29/24 19:02 MRSA Screen - Final
Nose No Methicillin Resistant Staphylococcus aureus isolated.
[2024-07-02 15:00] VITALS: BP 118/57
--- NOTE | 2024-07-02 17:19 | W.PN.UPDATE ---
Update Note
Progress Note Update
Pt awake in bed, oriented X 1. Does not remember seeing me in the office nor the cyst aspiration by radiology. Breast is significantly improved with decreased drainage. would continue current plan. No evidence of definite cancer diagnosed yet. Need
resolution of abscess and re-imaging which can be obtained after disposition back to [facility].
[2024-07-02] MEDS: SENOKOT 8.6 MG PO (18:03)
--- NOTE | 2024-07-02 20:30 | PTCARENOTE ---
This RN noticed redness and swelling around IV site after IV vanco completed infusing. Patient with no complaints at the start, but once IV was flushed patient screamed out in pain. Notified IV nurse and pharmacy of infiltrate. Notified JESSICA Lewis
W[facility]. Antidote Hyaluronidase ordered and obtained from pharmacy -- IV nurse here to administer antidote to right forearm site. Redness, swelling, pain present at this time. Will continue to monitor closely.
[2024-07-02] MEDS: HYLENEX 150 UNITS SC (21:52)
[2024-07-02 23:35] VITALS: BP 113/56
--- NOTE | 2024-07-03 00:34 | VATNOTE ---
VAT paged to assess patient's right forearm PIV site as patient is reporting pain. Site visibly infiltrated with redness and swelling to area measuring [id number] stage 2 extravasation. Primary RN contacted [employer] to order antidote. This VAT RN
administered antidote to right forearm- see JAN. Site reassessed 45 minutes later, patient reporting slight pain site now measuring [id number]. Right arm elevated on pillow and cool compress applied. Will continue to monitor.
[2024-07-03 06:14] LABS: Hematocrit 34.2 % (37.0-47.0); Hemoglobin 11.4 g/dL (12.0-16.0); Mean Corp Hgb Conc. 33.3 g/dL (33.0-37.0); Mean Corpuscular Hgb 26.9 pg (27.0-31.0); Mean Corpuscular Volume 80.7 fL (81.0-99.0); Mean Platelet Volume 10.7 fL (7.4-10.4); Platelet Count 363 10^3/uL (130-400); Red Blood Cell Count 4.24 10^6/uL (4.20-5.40); White Blood Cell Count 10.9 10^3/uL (4.8-10.8)
[2024-07-03] MEDS: VANCOCIN 150 IV ×2 (06:44→17:48)
[2024-07-03 07:00] VITALS: BP 114/57
[2024-07-03 08:08] LABS: Blood Urea Nitrogen 6 mg/dl (7-17); Calcium 7.6 mg/dl (8.4-10.2); Carbon Dioxide 24 mmol/L (22-30); Chloride 92 mmol/L (98-107); Estimated Creatinine Clearance 70 ml/min; Glucose 631 mg/dl (70-99); Potassium 3.6 mmol/L (3.5-5.1); Sodium 118 mmol/L (135-145); eGFR > 60.00
--- NOTE | 2024-07-03 08:17 | PHA.VAN.FU ---
Vancomycin Assessment / Plan
- Assessment
Renal Function: Stable
In the past 24 hrs, patient has been: Afebrile
- Dosing Plan
Continue: 750MG Q12H
- Monitoring Plan
Peak Level: 07/03 @2030
Trough Level: 07/04 @0530
- Follow Up
Pharmacy will continue to follow.
Vancomycin Follow UP
- -
Patient Age: 83
Patient Sex: Female
Vancomycin Day #: 5
Indication: Skin And Soft Tissue
Requesting Provider: Dr. Crowe
Pertinent Antimicrobial Allergies:
NKDA
Height / Weight:
Height 5 ft 8 in
Actual Weight 74.5 kg
- Vital Signs / Lab Results
Temp Pulse Resp BP Pulse Ox
98.6 F 76 17 114/57 96
07/03/24 07:00 07/03/24 07:00 07/03/24 07:00 07/03/24 07:00 07/03/24 07:00
Lab Results - Hematology
07/01/24 07/02/24 07/03/24
07:13 07:20 05:54
WBC 10.0 9.5 10.9 H
Lab Results - Chemistry
07/01/24 07/02/24 07/03/24
07:13 07:20 05:54
BUN 11 9 Cancelled
Creatinine 0.6 0.5 L Cancelled
Estimated Creat Clear 70 70 Cancelled
07/03/24
06:52
BUN 6 L
Creatinine 0.4 L
Estimated Creat Clear 70
Microbiology Results
06/29/24 14:08 Blood Culture - Preliminary
Blood/Venous No Growth in 72 hours- Final report to follow
06/29/24 14:06 Blood Culture - Preliminary
Blood/Venous No Growth in 72 hours- Final report to follow
06/29/24 15:33 Wound Culture - Final
Breast - Left Staph aureus MRSA
Gram Stain - Final
06/29/24 19:02 MRSA Screen - Final
Nose No Methicillin Resistant Staphylococcus aureus isolated.
--- NOTE | 2024-07-03 08:36 | VATNOTE ---
Vat rounds: right arm infiltrate continues with swelling. warm compress applied for patient's comfort. Patient has no c/o pain at present time. will monitor closely.
[2024-07-03] MEDS: HEPARIN 5000 UNITS SC ×2 (08:44→20:21)
[2024-07-03] MEDS: MIRALAX 17 GRAMS PO (08:44)
--- NOTE | 2024-07-03 10:05 | W.PN.HOSP.TC ---
Addendum entered and electronically signed by Mckayla Early MD 07/03/24 12:22:
repeat BMP today with normalized lab values (sodium level 136, glucose level 143), hence first BMP from 6:52 am was not correct (lab error)
Original Note:
Today's Communication/Plan
-
see A/P
Assessment / Plan
Assessment / Plan
A/P:
# Left breast cellulitis with abscess status post left breast cyst biopsy
L breast abscess drained by interventional radiology on 06/29
Need to check with IR when DAVID drain can be removed
wound culture positive for MRSA
Cont vanco, off Zosyn
Appreciate ID input
# Mild hyponatremia
# Noted abnormal BMP with significant drop of Na to 118 on 07/03, suspect this is lab error
Pt's MS has been stable
check repeat BMP
# Advanced dementia
daughter is POA
# Chronic left hemiparesis following by COVID in 2021. According to son not documented CVA including group home records
PT/OT
# Protein calorie malnutrition
CODE STATUS DNR
DVT prophylaxis heparin
Anticipated Discharge: > 48 hours
Subjective/Interval History
-
Date of Service: July 03, 2024
Objective Data
-
Labs:
Laboratory Results
07/03/24 07/03/24 07/03/24
05:54 06:52 10:04
WBC 10.9 H
Hgb 11.4 L
Hct 34.2 L
Plt Count 363
Sodium Cancelled 118 L* D Pending
Potassium Cancelled 3.6 Pending
Chloride Cancelled 92 L Pending
Carbon Dioxide Cancelled 24 Pending
BUN Cancelled 6 L Pending
Creatinine Cancelled 0.4 L Pending
Glucose Cancelled 631 H* Pending
Calcium Cancelled 7.6 L Pending
Vital Signs:
Vital Signs
Temp Pulse Resp BP Pulse Ox
37.0 C 76 17 114/57 96
07/03/24 07:00 07/03/24 07:00 07/03/24 07:00 07/03/24 07:00 07/03/24 07:00
I&O
07/02/24 07/03/24 07/04/24
06:59 06:59 06:59
Intake Total 1225 / 1225
Output Total 170 / 170
Balance 1055 / 1055
Review of Systems
-
Unable to obtain full review of systems at this time due to: Dementia
All other systems: Reviewed and negative
Physical Exam
-
General: Well Developed, Well Nourished, No Apparent Distress, Comfortable and Conversant
HEENT: Normocephalic and Atraumatic
Respiratory: Clear to Auscultation and Non Labored Respirations; Negative Accessory Resp Muscle Use
Cardiac: Regular Rhythm and S1/S2; Negative Murmur
Breast: Other (left breast with DAVID drain in place)
GI: Soft, Nontender, Nondistended and Normal Bowel Sounds
Musculoskeletal: No Clubbing, No Cyanosis and No Edema
Neuro: Awake and Alert
Psych: Calm and Apparent Dementia; Negative Intact Judgement/Insight
Data Reviewed
-
Labs: Labs Reviewed by me
[2024-07-03 10:39] LABS: Blood Urea Nitrogen 8 mg/dl (7-17); Calcium 8.8 mg/dl (8.4-10.2); Carbon Dioxide 31 mmol/L (22-30); Chloride 104 mmol/L (98-107); Estimated Creatinine Clearance 70 ml/min; Glucose 143 mg/dl (70-99); Potassium 3.9 mmol/L (3.5-5.1); Sodium 136 mmol/L (135-145); eGFR > 60.00
--- NOTE | 2024-07-03 11:07 | W.PN.ID1 ---
Date of Service
Date of Service: July 03, 2024
Today's Communication
Continue Vancomycin.
Assessment / Plan
83-year-old female with history of CVA with left hemiplegia, dementia, who presented with surgical site infection of left breast, breast abscess status post DAVID drainage insertion.
Surgical site infection s/p biopsy/drainage of L breast cyst
Breast abscess
Status post DAVID drainage
-Wound/abscess culture: MRSA
-Blood cultures x 2 06/29: NGTD
-MRSA screen: Negative
-Drain output 340 ->90-> 70
-Continue vancomycin IV
-Contact precautions for MRSA
Chief Complaint
-: Other (breast abscess)
Subjective / Review of Systems
No complaints today.
Vital Signs / Physical Exam
Vital Signs
Vital Signs
Temp Pulse Resp BP Pulse Ox
98.6 F 76 17 114/57 96
07/03/24 07:00 07/03/24 07:00 07/03/24 07:00 07/03/24 07:00 07/03/24 07:00
Physical Exam
Constitutional: No Acute Distress
Pulmonary: Clear
Wound: Other (left breast DAVID drain cloudy sero-sanguinous fluid, minimal erythema inferiorly, nontender)
Objective Data
Lab Data
Lab Results
07/03/24 05:54
07/03/24 10:17
Estimated Creat Clear 70 ml/min 07/03/24 10:17
Lactic Acid 1.6 mmol/L (0.7-2.0) 06/29/24 19:50
Most recent labs reviewed.
Micro Results:
06/29/24 14:08 Blood Culture - Preliminary
Blood/Venous No Growth in 72 hours- Final report to follow
06/29/24 14:06 Blood Culture - Preliminary
Blood/Venous No Growth in 72 hours- Final report to follow
06/29/24 15:33 Wound Culture - Final
Breast - Left Staph aureus MRSA
Gram Stain - Final
06/29/24 19:02 MRSA Screen - Final
Nose No Methicillin Resistant Staphylococcus aureus isolated.
--- NOTE | 2024-07-03 14:33 | W.PN.UPDATE ---
Update Note
Progress Note Update
Regarding removal of IR breast drain-they usually send to breast surgery for management. We remove drain when less than 10cc in 24 hours. Drain should be instilled sterilly with injectable saline daily so contents do not become too viscous. Pt may
need line for continued antibiotic therapy.
[2024-07-03 15:00] VITALS: BP 119/54
[2024-07-03] MEDS: SENOKOT 8.6 MG PO (17:48)
[2024-07-03 20:49] LABS: Vancomycin Peak 24.5 ug/ml (18-26)
[2024-07-03 23:03] VITALS: BP 110/63
[2024-07-04] MEDS: VANCOCIN IV (06:36)
[2024-07-04 06:44] LABS: Hematocrit 32.2 % (37.0-47.0); Hemoglobin 10.5 g/dL (12.0-16.0); Mean Corp Hgb Conc. 32.6 g/dL (33.0-37.0); Mean Corpuscular Hgb 26.1 pg (27.0-31.0); Mean Corpuscular Volume 79.9 fL (81.0-99.0); Mean Platelet Volume 10.8 fL (7.4-10.4); Platelet Count 382 10^3/uL (130-400); Red Blood Cell Count 4.03 10^6/uL (4.20-5.40); Red Cell Dist. Width 14.1 % (11.5-14.5); White Blood Cell Count 12.3 10^3/uL (4.8-10.8)
[2024-07-04 07:00] LABS: Vancomycin Trough 16.8 ug/ml (5-20)
[2024-07-04] MEDS: HEPARIN 5000 UNITS SC (07:27)
[2024-07-04] MEDS: MIRALAX 17 GRAMS PO (07:28)
[2024-07-04] MEDS: VANCOCIN 150 IV (07:30)
[2024-07-04 07:39] LABS: Blood Urea Nitrogen 10 mg/dl (7-17); Calcium 8.7 mg/dl (8.4-10.2); Carbon Dioxide 29 mmol/L (22-30); Chloride 103 mmol/L (98-107); Estimated Creatinine Clearance 70 ml/min; Glucose 118 mg/dl (70-99); Potassium 4.1 mmol/L (3.5-5.1); Sodium 135 mmol/L (135-145); eGFR > 60.00
--- NOTE | 2024-07-04 08:04 | W.PN.ID1 ---
Addendum entered and electronically signed by Annie Stevens MD 07/04/24 12:07:
a1c in prediabetic range, management per pcp
Addendum entered and electronically signed by Annie Stevens MD 07/04/24 10:17:
I saw and evaluated the patient. I reviewed the resident�s note and agree with findings and plan as documented in the resident�s note with the following corrections/additions:
S: Afebrile, breast surgery has commented they're pleased with clinical improvement
O:
my physical exam is consistent with the residents
Wound/abscess/other Cult Final 07/02/24-800
Few Staph aureus MRSA
Isolation Precautions [place] [id number] on 07/01/24 at 0945 by [place] [id number]
Organism 1 Staph aureus MRSA
1. Staph aureus MRSA
M.I.C. RX
--------- ---
Amoxicillin/Potas. Clavulanate >4/2 R
Ampicillin >8 R
Clindamycin <=0.5 S
Gentamicin <=4 S
Erythromycin <=0.5 S
Levofloxacin <=1 S
Oxacillin >2 R
Tetracycline <=4 S
Trimethoprim/Sulfamethoxazole <=0.5/9.5 S
Vancomycin 1 S
07/03 glucose 631
A&P
83-year-old female with history of CVA with left hemiplegia, dementia, who presented with surgical site infection of left breast, breast abscess status post DAVID drainage insertion.
Surgical site infection s/p biopsy/drainage of L breast cyst
Breast abscess
Status post DAVID drainage
-Wound/abscess culture: MRSA
-Blood cultures x 2 06/29: NGTD
- check a1c
-Drain output 340 ->90-> 70 -> 100ccs; management of drain per Dr Spaulding - breast surgery
- switch to doxycycline 100 mg PO BID x14 days total through 07/13
-Contact precautions for MRSA
- stable for dc from ID perspective with follow up with breast surgery
Original Note:
Date of Service
Date of Service: July 04, 2024
Today's Communication
Continue IV abx, will convert to oral therapy
Keep drain in, monitor output
Assessment / Plan
83-year-old female with history of CVA with left hemiplegia, dementia, who presented with surgical site infection of left breast, breast abscess status post DAVID drainage insertion.
Surgical site infection s/p biopsy/drainage of L breast cyst
Breast abscess
Status post DAVID drainage
-Wound/abscess culture: MRSA
-Blood cultures x 2 06/29: NGTD
-MRSA screen: Negative
-Drain output 340 ->90-> 70->125ml
-Continue vancomycin IV, will convert to oral therapy for MRSA coverage. Consider Doxycycline
-Contact precautions for MRSA
Chief Complaint
-: Other (breast abscess)
Subjective / Review of Systems
No acute events overnight
Vital Signs / Physical Exam
Vital Signs
Vital Signs
Temp Pulse Resp BP Pulse Ox
99.0 F 94 18 110/63 94
07/03/24 23:03 07/03/24 23:03 07/03/24 23:03 07/03/24 23:03 07/03/24 23:03
Physical Exam
Constitutional: No Acute Distress and Comfortable
Cardiovascular: Regular Rate and S1/S2; Negative Murmur, Rub or Peripheral Edema
Pulmonary: Clear and Non Labored; Negative Wheezes, Rales or Rhonchi
Gastrointestinal: Soft, Non Tender, Non Distended and Normal Bowel Sounds
Skin: Other
Wound: Other (left breast - minimal erythema, mild skin induration, mildly tender, DAVID drain with cloudy sero-sanguinous fluid)
Neurological: Awake and Alert
Psychological: Calm
Lines: PIV (intact, nontender/erythematous)
Objective Data
Lab Data
Lab Results
07/04/24 06:16
07/04/24 06:16
Estimated Creat Clear 70 ml/min 07/04/24 06:16
Lactic Acid 1.6 mmol/L (0.7-2.0) 06/29/24 19:50
Most recent labs reviewed.
Micro Results:
06/29/24 14:08 Blood Culture - Preliminary
Blood/Venous No Growth in 4 days- Final report to follow
06/29/24 14:06 Blood Culture - Preliminary
Blood/Venous No Growth in 4 days- Final report to follow
06/29/24 15:33 Wound Culture - Final
Breast - Left Staph aureus MRSA
Gram Stain - Final
06/29/24 19:02 MRSA Screen - Final
Nose No Methicillin Resistant Staphylococcus aureus isolated.
[2024-07-04 08:10] VITALS: BP 104/51
--- NOTE | 2024-07-04 08:34 | PHA.VAN.FU ---
Vancomycin Assessment / Plan
- Assessment
Renal Function: Stable
WBC's are: Trending Up
In the past 24 hrs, patient has been: Afebrile
- Assessment - Therapeutic Drug Monitoring
Extrapolated Cmax (mcg/mL): 26
Peak level was drawn: Appropriately (drawn ~1.6hrs after end of previous infusion)
Extrapolated Cmin (mcg/mL): 17.3
Trough Drawn: Appropriately
Levels were drawn: At steady state (drawn after 8th maintenance dose)
Calculated AUC (mcg*h/mL): 513
Calculated ke: 0.0372
Calculated half life (H): 18.6
Calculated Vd (L): 105 (1.4L/kg)
Calculated Vanc CL (ml/min): 65
- Dosing Plan
Adjust Regimen to: 1250mg Q24H Starting 07/05/24 06:00
Dosing Comments: adjusting dosing based on half life
- Monitoring Plan
No level(s) ordered at this time: consider in the next few days
- Follow Up
Pharmacy will continue to follow.
Vancomycin Follow UP
- -
Patient Age: 83
Patient Sex: Female
Vancomycin Day #: 6
Indication: Skin And Soft Tissue
Requesting Provider: Dr. Crowe
Pertinent Antimicrobial Allergies:
NKDA
Height / Weight:
Height 5 ft 8 in
Actual Weight 74.5 kg
- Vital Signs / Lab Results
Temp Pulse Resp BP Pulse Ox
98.2 F 87 15 104/51 96
07/04/24 08:10 07/04/24 08:10 07/04/24 08:10 07/04/24 08:10 07/04/24 08:10
Lab Results - Hematology
07/02/24 07/03/24 07/04/24
07:20 05:54 06:16
WBC 9.5 10.9 H 12.3 H
Lab Results - Chemistry
07/02/24 07/03/24 07/03/24
07:20 05:54 06:52
BUN 9 Cancelled 6 L
Creatinine 0.5 L Cancelled 0.4 L
Estimated Creat Clear 70 Cancelled 70
07/03/24 07/04/24
10:17 06:16
BUN 8 10
Creatinine 0.6 0.6
Estimated Creat Clear 70 70
Microbiology Results
06/29/24 14:08 Blood Culture - Preliminary
Blood/Venous No Growth in 4 days- Final report to follow
06/29/24 14:06 Blood Culture - Preliminary
Blood/Venous No Growth in 4 days- Final report to follow
06/29/24 15:33 Wound Culture - Final
Breast - Left Staph aureus MRSA
Gram Stain - Final
Therapeutic Drug Monitoring
Vancomycin Peak 24.5 ug/ml (18-26) 07/03/24 20:25
Vancomycin Trough 16.8 ug/ml (5-20) 07/04/24 06:34
[2024-07-04 10:57] LABS: Glycohemoglobin (HgbA1c) 5.9 % (4.0-5.6)
[2024-07-04] MEDS: VIBRAMYCIN 100 MG PO (11:02)
--- NOTE | 2024-07-04 13:14 | W.PN.HOSP.TC ---
Today's Communication/Plan
-
d/c with drain back to [facility]
Assessment / Plan
Assessment / Plan
pt is an 83 year old female
Left breast cellulitis with abscess status post left breast cyst biopsy--L breast abscess drained by interventional radiology on 06/29--MRSA positive--changing to oral doxycycline--follow up with Dr. Spaulding re: drain removal
Mild hyponatremia--resolved
Noted abnormal BMP with significant drop of Na to 118 on 07/03, suspect this is lab error-- repeat BMP WNL
Advanced dementia--daughter is POA
Chronic left hemiparesis following by COVID in 2021. According to son not documented CVA including assisted records
Protein calorie malnutrition--likely mild
CODE STATUS DNR
DVT prophylaxis heparin
Anticipated Discharge: Today
Subjective/Interval History
-
Date of Service: July 04, 2024
pt ok for d/c
Objective Data
-
Labs:
Laboratory Results
07/04/24
06:16
WBC 12.3 H
Hgb 10.5 L
Hct 32.2 L
Plt Count 382
Sodium 135
Potassium 4.1
Chloride 103
Carbon Dioxide 29
BUN 10
Creatinine 0.6
Glucose 118 H
Calcium 8.7
Vital Signs:
max temp for 24 hours
07/03/24
15:00
Temp 99.2 F
Vital Signs
Temp Pulse Resp BP Pulse Ox
98.2 F 87 15 104/51 96
07/04/24 08:10 07/04/24 08:10 07/04/24 08:10 07/04/24 08:10 07/04/24 08:10
I&O
07/03/24 07/04/24 07/05/24
06:59 06:59 06:59
Intake Total 1225 / 1225 1155 / 1155
Output Total 170 / 170 125 / 125
Balance 1055 / 1055 1030 / 1030
Review of Systems
-
All other systems: Reviewed and negative
Physical Exam
-
General: Well Developed, Well Nourished and No Apparent Distress
HEENT: Normocephalic and Atraumatic
Respiratory: Clear to Auscultation; Negative Wheezes or Rhonchi
Cardiac: Regular Rhythm and S1/S2; Negative Murmur
Breast: Other (shaker tender--DAVID drain in place)
GI: Soft, Nontender, Nondistended and Normal Bowel Sounds
Musculoskeletal: No Clubbing, No Cyanosis and No Edema
Skin: Warm
Neuro: Awake
--- NOTE | 2024-07-04 13:25 | CM ---
Patient seen at bedside with physician. Patient for discharge back to [facility] today. CM spoke with jatinder, Yariel and she is confirming room number for patient to return to. Patient daughter made aware of transfer and CM completed IMM signed form
placed on chart and reviewed with daughter. CM will continue to follow for discharge planning needs.
Plan; return to SNF at [facility] fax [phone] and call report to [phone]
[2024-07-04 15:37] VITALS: BP 120/62
--- NOTE | 2024-07-04 16:31 | W.DCSUMMARY ---
Discharge Summary
Discharge Data
Date of Admission: 06/29/24
Date of Discharge: 07/04/24
-
Pending Results: No
Hospital Course
Primary care physician : Matteo Shah
Principal Discharge diagnosis : Left breast cellulitis with abscess status post left breast cyst biopsy
Chronic Discharge diagnosis : Advanced dementia, chronic left hemiparesis follow following COVID in 2021, mild protein calorie malnutrition, mild hyponatremia
Hospital Course : Patient was an 83-year-old female from [facility] with dementia and left hemiplegia who underwent a left breast cyst biopsy on June 23. Patient developed significant erythema and induration at the site of the
biopsy with later noticing purulent discharge. This was concerning for a left breast abscess. Patient was sent to the emergency department. Patient was admitted.
Problem #1: Left breast cellulitis with abscess status post left breast biopsy. Patient was admitted. Ultrasound showed a large complex fluid collection. White count was elevated on admission. She underwent IR aspiration and drain placement.
Culture was positive for Staphylococcus aureus methicillin resistant (MRSA). Patient was seen in consultation by infectious disease. She was started on IV vancomycin. This has been transitioned to oral doxycycline to complete a 14-day course
through July 13, 2024. Drain management is as per Dr. Spaulding. She should follow-up with her as an outpatient. Blood cultures obtained on 06/29/2024 no growth to date.
Problem #2: All other medical issues. These include Advanced dementia, chronic left hemiparesis follow following COVID in 2021, mild protein calorie malnutrition, mild hyponatremia. These medical issues were stable during her hospitalization.
Medications were continued as able.
Patient stable for discharge to her nursing facility at this time. If there are any questions regarding this dictation or her hospital stay, please do not hesitate to call. Our office number is [phone].
Procedure findings :
IR ULTRASOUND IMPRESSION: Ultrasound-guided drainage of left breast abscess with return of 260 mL of purulent appearing fluid as above. Sample sent for microbiology.
Discharge Plan
-
Patient Disposition: [facility]/SNF
Discharge Diagnosis/Procedures: Left breast cellulitis with abscess status post left breast cyst biopsy with DAVID drain in place, mild hyponatremia, advanced dementia, chronic left hemiparesis followed by [facility] in 2021, protein calorie malnutrition
likely mild
Condition: Good
Diet: Regular
Activity: As tolerated
Driving Restrictions: No driving
Bathing Restrictions: None
Activity Restrictions/Additional Instructions:
keep drain at discharge--Drain should be instilled sterilely with injectable saline daily so contents do not become too viscous.
Referrals:
Lolita Spaulding MD [Active] -
(as directed
)
Matteo Shah DO [Family Provider] - in less than 1 week
Prescriptions:
New
doxycycline hyclate 100 mg Capsule
100 mg PO Q12 Qty: 19 0RF
Rx Instructions:
take through 07/13/24
Continued
acetaminophen [Tylenol] 325 mg Tablet
650 mg PO Q4HPRN PRN (Reason: mild pain/fever >100.4)
magnesium hydroxide [Milk of Magnesia] 400 mg/5 mL Suspension
30 ml PO DAILYPRN PRN (Reason: constipation)
bisacodyl [Dulcolax (bisacodyl)] 10 mg Suppository
10 mg [place] DAILYPRN PRN (Reason: constipation, mom ineffective)
Fleet Enema 19-7 gram/118 mL Enema
118 ml [place] DAILYPRN PRN (Reason: if dulcolax ineffective)
sennosides [senna] 8.6 mg Tablet
8.6 mg PO QPM Qty: 0 0RF
polyethylene glycol 3350 [Miralax] 17 gram Powder In Packet
17 g PO DAILY Qty: 0 0RF
Discontinued
sulfamethoxazole-trimethoprim [Bactrim DS] 800-160 mg Tablet
1 tab PO BID
Patient Comments:
06/29/24: starting today, take 1 tab twice a day for 7 days
Discharge Orders:
Discharge Patient (As Directed); Ordered 07/04/24
Ordered By: Ariela Ashby
Discharge Date and Time
Print Language: ANGUILLAN
== END 2024-07-04 17:15 | DRG 863 ==
LOC: 3 WEST ACU 17:30
PROVIDERS: Internal Medicine; Physician Assistant Medical; Radiology Vascular & Interventional Radiology; ADMITTING PHYSICIAN Internal Medicine; ATTENDING PHYSICIAN Internal Medicine; EMERGENCY PHYSICIAN Emergency Medicine; FAMILY PHYSICIAN Student in an Organized Health Care Education/Training Program; OTHER PHYSICIAN Student in an Organized Health Care Education/Training Program
PROC: 0H9U30Z Drainage of Left Breast with Drainage Device, Percutaneous Approach (ICD-10-PCS; 2024-06-29)
DX: T81.49XA Infection following a procedure, other surgical site, initial encounter (principal); E44.1 Mild protein-calorie malnutrition; E87.1 Hypo-osmolality and hyponatremia; I69.354 Hemiplegia and hemiparesis following cerebral infarction affecting left non-dominant side; N61.1 Abscess of the breast and nipple; F03.90 Unspecified dementia, unspecified severity, without behavioral disturbance, psychotic disturbance, mood disturbance, and anxiety; N60.02 Solitary cyst of left breast; Z86.16 Personal history of COVID-19; Z66 Do not resuscitate; Y83.8 Other surgical procedures as the cause of abnormal reaction of the patient, or of later complication, without mention of misadventure at the time of the procedure
CPT/HCPCS: 10030; 76942; 80048; 80202; 83036; 83605; 83735; 85025; 85027; 87040; 87070; 87147; 87186; 87205; 96360; 99285; C1729; C1769

== ENCOUNTER 2024-08-18 03:05 | Emergency (ER) | payer MEDICARE, OTHER, SELFPAY ==
[2024-08-18] VITALS (8 sets, daily range): BP systolic 98–112; BP diastolic 54–63; BMI 23.5
--- NOTE | 2024-08-18 04:40 | ED.GENMED ---
History of Present Illness
<YUDI Santana - Last Filed: 08/18/24 04:51>
General
Chief Complaint: Skin Problem
Time Seen by Provider: 08/18/24 04:26
History of Present Illness
History of Present Illness:
Patient is an 84 year old female with a PMH of dementia presenting to the ED with a left breast abscess x 2 days. She stated it started leaking fluid around 2 days ago and described the fluid as clear. There is a mild pain associated with it and she
rated it a 3/10. Patient denies any chest pain palpitations fever numbness tingling.
Patient had a left breast abscess on 07/04/24 drained and was placed on antibiotics for. She also had a DAVID tube removed on 08/09/24.
Past History
<YUDI Santana - Last Filed: 08/18/24 04:51>
Past History
ED Past Medical History: Cancer and Other (Dementia, chronic left hemiplegia)
Social History
Tobacco: Non-smoker
Alcohol: None
Drug: None
Living: [facility]
Employment: Retired
Review of Systems
<YUDI Santana - Last Filed: 08/18/24 04:51>
Review of Systems
Unable to obtain full review of systems at this time due to: dementia
Constitutional: Reports no symptoms
Respiratory: Reports no symptoms
Cardiac: Reports no symptoms
Skin: Reports no symptoms
Neurological: Reports no symptoms
Phy Exam
<YUDI Santana - Last Filed: 08/18/24 04:51>
General Physical Exam
General Presentation: well appearing
General age: appears stated age
General Habitus: elderly
General Chronic Disability: demented
Cardiovascular Exam
Cardiovascular Exam: regular rate/rhythm, no edema, no gallop, no JVD and no murmur
Pulmonary Exam
Pulmonary Exam: lungs clear, no respiratory distress, no rales, chest non tender, no crackles, no rhonchi, no stridor, no wheezing and no cough
Skin Exam
Skin Exam: erythema (generalized erythema across L breast ) and other (abscess on L breast below nipple )
Course
<YUDI Santana - Last Filed: 08/18/24 04:51>
Orders/Labs/Results
Orders:
Orders
08/18/24 05:17
Basic Metabolic Panel Urgent
Complete Blood Count/With Diff Urgent
Lactic Acid Urgent
Wound Culture [Wound/Abscess/Other Culture] Urgent
KARI Source: Abscess
Specimen Description:
Date Specimen was Collected: 08/18/24
Time Specimen was Collected: 05:15
Comment: left breast
08/18/24 06:35
Vancomycin [Vancocin] 1,500 mg 0.9% Sodium Chloride [Nss] 20 ml 0.9% Sodium Chloride 250 ml [Nss] 250 ml IV NOW
Abnormal Lab Results
08/18/24
05:17
WBC 12.2 H 10^3/uL
(4.8-10.8)
MCH 26.6 L pg
(27.0-31.0)
MCHC 32.5 L g/dL
(33.0-37.0)
RDW 16.1 H %
(11.5-14.5)
MPV 10.6 H fL
(7.4-10.4)
Absolute Neuts (auto) 9.1 H 10^3/uL
(1.4-6.5)
Absolute Monos (auto) 1.3 H 10^3/uL
(0.1-0.6)
Lymphocytes % 12.0 L %
(20.5-51.1)
Monocytes % 10.4 H %
(1.7-9.3)
Creatinine 0.5 L mg/dL
(0.6-1.0)
Glucose 114 H mg/dl
(70-99)
08/18/24 05:17
08/18/24 05:17
Vital Signs
Initial and Last Documented VS:
Initial Vital Signs
BP
106/61
08/18/24 03:09
Last Documented Vital Signs
Temp Pulse Resp BP Pulse Ox
99.1 F 78 18 99/55 95
08/18/24 03:12 08/18/24 06:00 08/18/24 06:00 08/18/24 06:00 08/18/24 06:45
<Shayy Elkins, DO - Last Filed: 08/18/24 07:52>
Orders/Labs/Results
Orders:
Orders
08/18/24 05:17
Basic Metabolic Panel Urgent
Complete Blood Count/With Diff Urgent
Lactic Acid Urgent
Wound Culture [Wound/Abscess/Other Culture] Urgent
KARI Source: Abscess
Specimen Description:
Date Specimen was Collected: 08/18/24
Time Specimen was Collected: 05:15
Comment: left breast
08/18/24 06:35
Vancomycin [Vancocin] 1,500 mg 0.9% Sodium Chloride [Nss] 20 ml 0.9% Sodium Chloride 250 ml [Nss] 250 ml IV NOW
Abnormal Lab Results
08/18/24
05:17
WBC 12.2 H 10^3/uL
(4.8-10.8)
MCH 26.6 L pg
(27.0-31.0)
MCHC 32.5 L g/dL
(33.0-37.0)
RDW 16.1 H %
(11.5-14.5)
MPV 10.6 H fL
(7.4-10.4)
Absolute Neuts (auto) 9.1 H 10^3/uL
(1.4-6.5)
Absolute Monos (auto) 1.3 H 10^3/uL
(0.1-0.6)
Lymphocytes % 12.0 L %
(20.5-51.1)
Monocytes % 10.4 H %
(1.7-9.3)
Creatinine 0.5 L mg/dL
(0.6-1.0)
Glucose 114 H mg/dl
(70-99)
08/18/24 05:17
08/18/24 05:17
Vital Signs
Initial and Last Documented VS:
Initial Vital Signs
BP
106/61
08/18/24 03:09
Last Documented Vital Signs
Temp Pulse Resp BP Pulse Ox
99.1 F 78 18 99/55 95
08/18/24 03:12 08/18/24 06:00 08/18/24 06:00 08/18/24 06:00 08/18/24 06:45
<YUDI Santana - Last Filed: 08/18/24 04:51>
MDM/Problems Addressed
Differential Diagnosis Includes:
cellulitis, breast abscess
MDM/Problems Addressed:
order labs, start abx for cellulitis
<YUDI Santana - Last Filed: 08/18/24 04:51>
*Critical Care Note
Total Time (30-74mins, 75-104mins- exclusive of procedures): Not Applicable
<Shayy Elkins DO - Last Filed: 08/18/24 07:52>
Update Note
Update Note:
08/18/2024 0746 AM
Patient resting comfortably. She remains afebrile.
Labs show mildly elevated white blood cell count of 12 but lactic acid is normal.
IV vancomycin is infusing and will plan to discharge back to [facility] with 14-day course of doxycycline.
Left breast wound continues to drain moderate mount of serous fluid.
ED Attending Note
<YUDI Santana - Last Filed: 08/18/24 04:51>
-
Portions of this chart may have been created with voice recognition software.� Occasional wrong word or��sound alike� substitutions may have occurred due to the inherent limitations of voice recognition software.
<Shayy Elkins DO - Last Filed: 08/18/24 07:52>
ED Attending Note
Patient seen and examined by attending physician: Yes
I performed the substantive portion of visit, reviewed & personally made and approve the management plan that is documented in note by myself or MARY.: Yes
ED Attending Note:
This is an 84-year-old woman, resident of the local [facility] who has history of left breast abscess/cellulitis for which she was hospitalized here received IV Vanco, incision and drainage with DAVID drain placement. Discharged back to the nursing
home July 04 to complete a course of oral doxycycline for 14 days. She followed with Dr. Spaulding on the outpatient basis and DAVID drain was removed August 09.
According to [facility] records she was evaluated by a provider yesterday and noted to have a 3 cm x 3 cm inflamed nodule left inferior breast concerning for recurrent abscess. Warm compresses were initiated. Antibiotics were to be ordered.
Outpatient ultrasound performed yesterday shows a large complex well marginated mass 12 o'clock position of the left breast increased in size from previous ultrasound March 2024 measuring 7.6 cm in its greatest dimension.
She is sent to the ED after nursing staff noted serosanguineous drainage from left inferior breast.
There has been no report of fever. Patient denies pain. No other associated symptoms.
GENERAL: 84-year-old somewhat frail, chronically debilitated appearing woman is bright and alert, mildly confused but pleasant and answering simple questions appropriately. Initial oral temperature 99 �F, 98.7 �F upon recheck.
EYE: . anicteric
NECK: Supple, nontender, no meningismus, no significant adenopathy.
ENT: oral mucosa is moist. No rhinorrhea. Left breast
CARDIAC: Regular rate and rhythm. no murmur.
LUNGS: Clear breath sounds bilaterally, no acute respiratory distress, no wheezes/rales/rhonchi
Has a pinpoint area 6 o'clock position draining moderate amount of serous, scantly sanguinous fluid. There is moderate global erythema to the breast with mild palpable tenderness.
ABDOMEN: Soft, nondistended, without focal tenderness, normoactive BS.
NEUROLOGICAL: Alert and oriented x2, left hemiparesis.
SKIN: Warm and dry, normal color, skin intact.
MUSCULOSKELETAL: No C/C/E. peripheral pulses are full and equal b/l. No palpable tenderness.
PSYCH: Normal and appropriate interaction.
Concern for recurrent left breast abscess now spontaneously draining with concern for associated cellulitis.
Reassuring that patient is afebrile and overall appears comfortable.
Wound culture has been obtained. Previous wound culture was positive for MRSA.
Will check labs including lactic acid and will plan for an IV dose of vancomycin.
If labs are reassuring, abscess is draining, at this point no indication for further incision and drainage. Will plan to [facility] to [facility] with [facility] for another round of doxycycline and plan for follow-up with Dr. Spaulding.
Discharge Plan
Departure
Patient Disposition: Retirement/SNF
Date of Disposition: 08/18/24
Time of Disposition: 07:43
Patient with high blood pressure during this ER visit?: No
Condition: Good
Discharge Problem:
recurrent abscess left breast, Cellulitis of left breast
Instructions: Cellulitis (Skin Infection), Adult (DC), Skin Abscess
Prescriptions:
New
doxycycline monohydrate 100 mg capsule
100 mg PO BID Qty: 28 1RF
No Action
acetaminophen [Tylenol] 325 mg Tablet
650 mg PO Q4HPRN PRN (Reason: mild pain/fever >100.4)
magnesium hydroxide [Milk of Magnesia] 400 mg/5 mL Suspension
30 ml PO DAILYPRN PRN (Reason: constipation)
bisacodyl [Dulcolax (bisacodyl)] 10 mg Suppository
10 mg [place] DAILYPRN PRN (Reason: constipation, mom ineffective)
Fleet Enema 19-7 gram/118 mL Enema
118 ml [place] DAILYPRN PRN (Reason: if dulcolax ineffective)
doxycycline hyclate 100 mg Capsule
100 mg PO Q12 Qty: 19 0RF
Rx Instructions:
take through 07/13/24
sennosides [senna] 8.6 mg Tablet
8.6 mg PO QPM Qty: 0 0RF
polyethylene glycol 3350 [Miralax] 17 gram Powder In Packet
17 g PO DAILY Qty: 0 0RF
Referrals:
Lolita Spaulding MD [Active] - Call in 1-3 days for appt
Matteo Shah DO [Family Provider] -
Interventions
Interventions:
*Risk Screen - Suicide Last Done: 08/18/24 03:12
*General Assessment Last Done: 08/18/24 03:12
*Neglect/Abuse Screening Last Done: 08/18/24 03:12
ED- Fall Risk Assessment Last Done: 08/18/24 03:12
*ED COVID-19 Vaccine History Last Done: 08/18/24 03:12
ED-Skin Assessment Last Done: 08/18/24 03:34
Discharge Date and Time
Print Language: TRISTANIAN
[2024-08-18 05:30] LABS: % Basophils 0.5 % (0-2); % Eosinophils 1.6 % (0-6); % Immature Granulocytes 0.3 % (0-0.5); % Monocytes 10.4 % (1.7-9.3); % Neutrophils 75.2 % (42.2-75.2); Absolute Basophils 0.1 10^3/uL (0-0.2); Absolute Eosinophils 0.2 10^3/uL (0-0.7); Absolute Lymphocytes 1.5 10^3/uL (1.2-3.4); Absolute Monocytes 1.3 10^3/uL (0.1-0.6); Absolute Neutrophils 9.1 10^3/uL (1.4-6.5); Hematocrit 38.2 % (37.0-47.0); Hemoglobin 12.4 g/dL (12.0-16.0); Mean Corp Hgb Conc. 32.5 g/dL (33.0-37.0); Mean Corpuscular Hgb 26.6 pg (27.0-31.0); Mean Corpuscular Volume 81.8 fL (81.0-99.0); Mean Platelet Volume 10.6 fL (7.4-10.4); Nucleated Red Blood Cells % 0 %; Platelet Count 275 10^3/uL (130-400); Red Blood Cell Count 4.67 10^6/uL (4.20-5.40); Red Cell Dist. Width 16.1 % (11.5-14.5); White Blood Cell Count 12.2 10^3/uL (4.8-10.8)
[2024-08-18 05:57] LABS: Blood Urea Nitrogen 17 mg/dl (7-17); Carbon Dioxide 22 mmol/L (22-30); Chloride 105 mmol/L (98-107); Estimated Creatinine Clearance 69 ml/min; Glucose 114 mg/dl (70-99); Potassium 4.3 mmol/L (3.5-5.1); Sodium 140 mmol/L (135-145); eGFR > 60.00
[2024-08-18 06:01] LABS: Lactic Acid 0.7 mmol/L (0.7-2.0)
[2024-08-18] MEDS: VANCOCIN 300 ML IV (06:58)
[2024-08-18] MEDS: VANCOCIN 300 MG IV (06:58)
== END 2024-08-18 11:30 ==
LOC: EMR 03:05
PROVIDERS: EMERGENCY PHYSICIAN Emergency Medicine; FAMILY PHYSICIAN Student in an Organized Health Care Education/Training Program
DX: N61.1 Abscess of the breast and nipple (principal)
CPT/HCPCS: 99284; 96365; 80048; 83605; 85025; 87070; 87147; 87186; 87205

== ENCOUNTER → 2024-08-19 12:04 | Outpatient (REF) | payer MEDICARE, OTHER, SELFPAY ==
[2024-08-19 12:23] VITALS: BP 93/53; BP_SYST 80
[2024-08-19 14:04] VITALS: BP 105/53
== END ==
LOC: RADI 12:04
PROVIDERS: ATTENDING PHYSICIAN Surgery; FAMILY PHYSICIAN Student in an Organized Health Care Education/Training Program
DX: N61.1 Abscess of the breast and nipple (principal)
CPT/HCPCS: 10030; 87070; 87147; 87205; C1729; C1769

== ENCOUNTER 2024-09-14 18:25 | Inpatient (IN) | payer MEDICARE, OTHER, SELFPAY ==
[2024-09-14] VITALS (11 sets, daily range): BP systolic 96–134; BP diastolic 51–83; BMI 24.0; BMI 23.2
--- NOTE | 2024-09-14 11:59 | ED.GENMED ---
History of Present Illness
<Zoila Winters MD - Last Filed: 09/16/24 22:42>
General
Chief Complaint: Skin Problem
Source: patient and records
Time Seen by Provider: 09/14/24 11:48
History of Present Illness
History of Present Illness:
84-year-old female presents emergency department, history of left breast abscess with DAVID drain currently in place, noted to have a 'new area of mass and drainage located at the 6:00 from the nipple'. Patient is overall poor historian given her
memory deficits, pleasant.
Past History
<Zoila Winters MD - Last Filed: 09/16/24 22:42>
Past History
ED Past Medical History: Cancer and Other (Dementia, chronic left hemiplegia)
Social History
Tobacco: Non-smoker
Alcohol: None
Drug: None
Living: correction
Employment: Retired
Phy Exam
<Zoila Winters MD - Last Filed: 09/16/24 22:42>
Physical Exam
Physical Exam:
GENERAL: Alert , in no apparent distress
EYE: pupils equal and reactive
NECK: Supple, no significant adenopathy.
ENT: o/p clr, mmm.
CARDIAC: Regular rate and rhythm .
LUNGS: Clear breath sounds bilaterally, no acute respiratory distress, no wheezes/rales/rhonchi
ABDOMEN: Soft, without focal tenderness, no r/g
NEUROLOGICAL: Alert but not fully oriented,pleasant, speech clear, can express pain and ask questions appropriately, chonric L hemiplegia noted
SKIN: Warm and dry, skin intact but for area inferior to nipple L side 6 o'clock position with ttp/erythema/and spont drainage of blood tinged fluid (smallamount).
MUSCULOSKELETAL: No edema, well perfused.
PSYCH: Normal and appropriate interaction.
Course
<Zoila Winters MD - Last Filed: 09/16/24 22:42>
Orders/Labs/Results
Orders:
Orders
09/14/24 12:08
Complete Blood Count/With Diff Urgent
Comprehensive Metabolic Panel Urgent
09/14/24 12:46
US Breast Left Ltd WDC Urgent
Reason for Exam: abscess
09/14/24 Dinner
Regular
At Your Request: Limited, Sled Maker Required
Does patient need a safe tray?: No
09/14/24 17:29
Vancomycin 1 Gram/200 ml [Vancocin] 1 gram in 200 ml IV NOW
09/14/24 17:48
Admit/Transfer Patient As Directed
Co-Sign Provider:
Level of Care: Inpatient admission
Assign to:: Medical/Surgical
Physician / Group: stew
Diagnosis: breast abscess
Reason for Hospitalization: breast abscess
Expected length of stay greater than two midnights?: Yes
ELOS- Estimated Length of Stay in days: 2
I certify the patient meets the requirements for IP care: Yes
PRN Pain Medication Management As Directed
May give lesser potent ordered pain med per pt: Yes
preference::
Protocol:: Medication orders for pain may be administered in a
manner that supports deferring to patient preference
when the pt is:
- Requesting an ordered lesser potent pain medication.
Least to most potent pain medications are defined
as: acetaminophen < NSAID < tramadol < opioids
(morphine, oxycodone, hydromorphone).
- Requesting a lesser dose of the same medication IF
ORDERED.
- Requesting a less intrusive route of administration
if both routes are prescribed by the provider (PO <
IV).
09/14/24 17:49
Code Status As Directed
Resuscitation Status: Full Code
09/14/24 17:52
Code Status As Directed
Resuscitation Status: Do not resuscitate
Reached after discussion with pt or family/Healthcare POA: Yes
DNR Bracelet Application ONCE
09/14/24 19:17
Acetaminophen [Tylenol] 650 mg PO Q4HPRN PRN
Bisacodyl [Dulcolax] 10 mg RECTAL DAILYPRN PRN
Magnesium Hydroxide [Milk of Magnesia] 30 ml PO DAILYPRN PRN
Ondansetron HCl [Zofran] 4 mg PO Q6HPRN PRN
Sennosides [Senokot] 8.6 mg PO QPM
Tramadol HCl [Ultram] 50 mg PO [id number] PRN
09/14/24 19:17
Consult Interventional Radiology [[facility] CONSULT] Routine
Consulting Provider: Gurinder Alves
Was physician already notified: Yes
Reason for Consult/Procedure: breast driange a
Acknowledgement that appropriate orders are entered: Yes
INFECTIOUS DISEASE CONSULT Routine
Consulting Provider: Kamlesh Ya
Was physician already notified: Yes
SURGICAL CONSULT Routine
Consulting Provider: Lolita Spaulding
Was physician already notified: Yes
Activity As Directed
Activity Level: As Tolerated
Vital Signs As Directed
Frequency: Per unit guidelines
DX Deep Vein Thrombosis Video Routine
09/14/24 20:00
Heparin 5,000 units SC Q12
09/15/24 05:37
Complete Blood Count/With Diff IN AM
Comprehensive Metabolic Panel IN AM
09/15/24 08:00
Polyethylene Glycol Powder [Miralax] 17 grams PO DAILY
Saccharomyces Boulardii [Florastor] 250 mg PO DAILY
Abnormal Lab Results
09/14/24
12:08
WBC 11.8 H 10^3/uL
(4.8-10.8)
MCV 77.9 L fL
(81.0-99.0)
MCH 25.6 L pg
(27.0-31.0)
MCHC 32.8 L g/dL
(33.0-37.0)
RDW 16.5 H %
(11.5-14.5)
MPV 10.6 H fL
(7.4-10.4)
Absolute Neuts (auto) 8.4 H 10^3/uL
(1.4-6.5)
Absolute Monos (auto) 0.9 H 10^3/uL
(0.1-0.6)
Lymphocytes % 18.6 L %
(20.5-51.1)
BUN 18 H mg/dl
(7-17)
09/14/24 12:08
09/14/24 12:08
Vital Signs
Initial and Last Documented VS:
Initial Vital Signs
Temp Resp
97.9 F 18
09/14/24 11:44 09/14/24 11:44
Last Documented Vital Signs
Temp Pulse Resp BP Pulse Ox
98.8 F 90 16 108/57 95
09/16/24 15:30 09/16/24 15:30 09/16/24 15:30 09/16/24 15:30 09/16/24 15:30
<Alexis Davila MD - Last Filed: 09/14/24 22:55>
Orders/Labs/Results
Orders:
Orders
09/14/24 12:08
Complete Blood Count/With Diff Urgent
Comprehensive Metabolic Panel Urgent
09/14/24 12:46
US Breast Left Ltd WDC Urgent
Reason for Exam: abscess
09/14/24 Dinner
Regular
At Your Request: Limited, Sled Maker Required
Does patient need a safe tray?: No
09/14/24 17:29
Vancomycin 1 Gram/200 ml [Vancocin] 1 gram in 200 ml IV NOW
09/14/24 17:48
Admit/Transfer Patient As Directed
Co-Sign Provider:
Level of Care: Inpatient admission
Assign to:: Medical/Surgical
Physician / Group: stew
Diagnosis: breast abscess
Reason for Hospitalization: breast abscess
Expected length of stay greater than two midnights?: Yes
ELOS- Estimated Length of Stay in days: 2
I certify the patient meets the requirements for IP care: Yes
PRN Pain Medication Management As Directed
May give lesser potent ordered pain med per pt: Yes
preference::
Protocol:: Medication orders for pain may be administered in a
manner that supports deferring to patient preference
when the pt is:
- Requesting an ordered lesser potent pain medication.
Least to most potent pain medications are defined
as: acetaminophen < NSAID < tramadol < opioids
(morphine, oxycodone, hydromorphone).
- Requesting a lesser dose of the same medication IF
ORDERED.
- Requesting a less intrusive route of administration
if both routes are prescribed by the provider (PO <
IV).
09/14/24 17:49
Code Status As Directed
Resuscitation Status: Full Code
09/14/24 17:52
Code Status As Directed
Resuscitation Status: Do not resuscitate
Reached after discussion with pt or family/Healthcare POA: Yes
DNR Bracelet Application ONCE
09/14/24 19:17
Acetaminophen [Tylenol] 650 mg PO Q4HPRN PRN
Bisacodyl [Dulcolax] 10 mg RECTAL DAILYPRN PRN
Magnesium Hydroxide [Milk of Magnesia] 30 ml PO DAILYPRN PRN
Ondansetron HCl [Zofran] 4 mg PO Q6HPRN PRN
Sennosides [Senokot] 8.6 mg PO QPM
Tramadol HCl [Ultram] 50 mg PO [id number] PRN
09/14/24 19:17
Consult Interventional Radiology [[facility] CONSULT] Routine
Consulting Provider: Gurinder Alves
Was physician already notified: Yes
Reason for Consult/Procedure: breast driange a
Acknowledgement that appropriate orders are entered: Yes
INFECTIOUS DISEASE CONSULT Routine
Consulting Provider: Kamlesh Ya
Was physician already notified: Yes
SURGICAL CONSULT Routine
Consulting Provider: Lolita Spaudling
Was physician already notified: Yes
Activity As Directed
Activity Level: As Tolerated
Vital Signs As Directed
Frequency: Per unit guidelines
DX Deep Vein Thrombosis Video Routine
09/14/24 20:00
Heparin 5,000 units SC Q12
09/15/24 05:37
Complete Blood Count/With Diff IN AM
Comprehensive Metabolic Panel IN AM
09/15/24 08:00
Polyethylene Glycol Powder [Miralax] 17 grams PO DAILY
Saccharomyces Boulardii [Florastor] 250 mg PO DAILY
Abnormal Lab Results
09/14/24
12:08
WBC 11.8 H 10^3/uL
(4.8-10.8)
MCV 77.9 L fL
(81.0-99.0)
MCH 25.6 L pg
(27.0-31.0)
MCHC 32.8 L g/dL
(33.0-37.0)
RDW 16.5 H %
(11.5-14.5)
MPV 10.6 H fL
(7.4-10.4)
Absolute Neuts (auto) 8.4 H 10^3/uL
(1.4-6.5)
Absolute Monos (auto) 0.9 H 10^3/uL
(0.1-0.6)
Lymphocytes % 18.6 L %
(20.5-51.1)
BUN 18 H mg/dl
(7-17)
09/14/24 12:08
09/14/24 12:08
Vital Signs
Initial and Last Documented VS:
Initial Vital Signs
Temp Resp
97.9 F 18
09/14/24 11:44 09/14/24 11:44
Last Documented Vital Signs
Temp Pulse Resp BP Pulse Ox
98.8 F 90 16 108/57 95
09/16/24 15:30 09/16/24 15:30 09/16/24 15:30 09/16/24 15:30 09/16/24 15:30
<Alexis Davila MD - Last Filed: 09/14/24 22:55>
MDM/Problems Addressed
MDM/Problems Addressed:
Breast US report discussed with ([facility]) - tentative plan to place another drain in place, as an in-patient. Will admit the patient under hospitalist service on iv abx.
<Alexis Davila MD - Last Filed: 09/14/24 22:55>
*Critical Care Note
Total Time (30-74mins, 75-104mins- exclusive of procedures): Not Applicable
<Zoila Winters MD - Last Filed: 09/16/24 22:42>
Update Note
Update Note:
Patient presents to the Emergency Department with ____suspected new breast collection
Number and Complexity of Problems Addressed at the Encounter
� Chronic conditions affecting care:
� Acute Exacerbation and/or Progression of Chronic Illness:
� Differential Diagnosis includes: But not limited to fluid-filled cyst, new abscess, extension of existing abscess, etc.
Amount and/or Complexity of Data to be Reviewed and Analyzed
� I performed an independent evaluation of and my interpretation is:
EKG:
CT:
Xrays:
Laboratory Studies: Nonspecific baseline leukocytosis, labs generally unremarkable otherwise
Other: Verbal report Dr. Ventura ultrasound shows a complex fluid collection, area that I described to the 6 o'clock position is communicating with the prior collection noted in May. It is smaller in size measuring 6.5 cm
compared to 8 cm in May.
� Review of other/old records reveals: Patient had abscess develop after a left breast cyst biopsy on or about July 16 which was positive for MRSA. Records reviewed, DAVID drain was removed August 09. Reaccumulation of
abscess noted on August 18 patient started on Doxy.
� Clinical information was obtained by an independent historian:
� Prescriptions/Medications Considered but not given:
� Further testing considered but not performed:
Risk of Complications and/or Morbidity or Mortality of Patient Management
� Social determinants of health affecting care:
� Discussion with other providers (PCP, Hospitalists, Consultants, etc):
� Escalation of care including admission/observation vs risk of discharge considered:Late entry (10.25 at 1042pm)...I s/o to Dr Davila pending d/w IR and possibly Dr Spaulding, pt was admitted.
ED Attending Note
<Zoila Winters MD - Last Filed: 09/16/24 22:42>
-
Portions of this chart may have been created with voice recognition software.� Occasional wrong word or��sound alike� substitutions may have occurred due to the inherent limitations of voice recognition software.
Discharge Plan
Departure
Patient Disposition: Admit
Date of Disposition: 09/14/24
Time of Disposition: 17:33
Admit to: Med/Surg
Presentation/result/management discussed w/ accepting MD/DO: Hospitalist
Discharge Problem:
Abscess of breast
Interventions
Interventions:
*Risk Screen - Suicide Last Done: 09/14/24 11:51
*General Assessment Last Done: 09/14/24 18:49
*Neglect/Abuse Screening Last Done: 09/14/24 11:51
ED- Fall Risk Assessment Last Done: 09/14/24 18:49
*ED COVID-19 Vaccine History Last Done: 09/14/24 18:49
*Nursing Disposition Last Done: 09/14/24 18:49
ED-Skin Assessment Last Done: 09/14/24 18:03
Discharge Date and Time
Discharge Date/Time: 09/14/24 18:49
[2024-09-14 12:26] LABS: % Basophils 0.5 % (0-2); % Eosinophils 1.8 % (0-6); % Immature Granulocytes 0.3 % (0-0.5); % Lymphocytes 18.6 % (20.5-51.1); % Monocytes 7.5 % (1.7-9.3); % Neutrophils 71.3 % (42.2-75.2); Absolute Basophils 0.1 10^3/uL (0-0.2); Absolute Eosinophils 0.2 10^3/uL (0-0.7); Absolute Lymphocytes 2.2 10^3/uL (1.2-3.4); Absolute Monocytes 0.9 10^3/uL (0.1-0.6); Absolute Neutrophils 8.4 10^3/uL (1.4-6.5); Hematocrit 38.1 % (37.0-47.0); Hemoglobin 12.5 g/dL (12.0-16.0); Mean Corp Hgb Conc. 32.8 g/dL (33.0-37.0); Mean Corpuscular Hgb 25.6 pg (27.0-31.0); Mean Corpuscular Volume 77.9 fL (81.0-99.0); Mean Platelet Volume 10.6 fL (7.4-10.4); Nucleated Red Blood Cells % 0 %; Platelet Count 327 10^3/uL (130-400); Red Blood Cell Count 4.89 10^6/uL (4.20-5.40); Red Cell Dist. Width 16.5 % (11.5-14.5); White Blood Cell Count 11.8 10^3/uL (4.8-10.8)
[2024-09-14 12:41] LABS: ALT (SGPT) 14 U/L (0-35); AST (SGOT) 20 U/L (14-36); Albumin 4.1 g/dl (3.5-5.0); Alkaline Phosphatase 93 U/L (38-126); Blood Urea Nitrogen 18 mg/dl (7-17); Calcium 9.5 mg/dl (8.4-10.2); Carbon Dioxide 25 mmol/L (22-30); Chloride 102 mmol/L (98-107); Estimated Creatinine Clearance 54 ml/min; Glucose 75 mg/dl (70-99); Potassium 4.7 mmol/L (3.5-5.1); Sodium 139 mmol/L (135-145); Total Bilirubin 0.3 mg/dl (0.2-1.3); Total Protein 7.5 g/dl (6.3-8.2); eGFR > 60.00
--- NOTE | 2024-09-14 17:55 | HPS.HSE ---
Addendum entered and electronically signed by Houston Calzada MD 09/14/24 18:00:
DISREGARD THIS DOCUMENT. SEE NEWER H&P.
Original Note:
Family Physician
-
Family Physician: NOT KNOW UNKNOWN - PT DOES
Chief Complaint
-
breast abscess
History of Present Illness
84-year-old female past medical history of CVA with left hemiplegia left breast abscess with DAVID drain, advanced dementia, chronic left hemiparesis, protein calorie malnutrition, presenting to the emergency room outpatient ultrasound of the breast
showing new area of drainage.
Patient cannot provide any history and does not even know that she is in the hospital.
She she feels tired but denies any fever or nausea or vomiting diarrhea.
Patient was recently admitted from 06/29 to 07/04 who underwent left breast cyst biopsy on June 23 developed significant erythema and induration at the site of the biopsy with later purulent discharge concerning for left breast abscess. She underwent
IR aspiration and drain placement. Cultures positive for MRSA. She was treated vancomycin transition to oral doxycycline and completed 14-day course.
Medical History
Past Medical History
Past Medical History: Reports Other (CVA with left hemiplegia left breast abscess with DAVID drain, advanced dementia, chronic left hemiparesis, protein calorie malnutrition)
Past Surgical History: Reports None
Social History
Tobacco: Non-smoker
Alcohol: None
Drug: None
Family History
Family History: Not pertinent
Allergies / Home Medications
Allergies reflects when Allergies were last updated in [employer].
Home Medications with original date entered in [employer]
Allergy/Medication List:
Allergies
Allergy/AdvReac Type Severity Reaction Status Date / Time
No Known Allergies Allergy Verified 08/18/24 03:12
Home Medications
acetaminophen 325 mg tablet (Tylenol) 650 mg PO Q4HPRN PRN mild pain/fever >100.4 06/29/24
bisacodyl 10 mg rectal suppository (Dulcolax (bisacodyl)) 10 mg WA DAILYPRN PRN constipation, mom ineffective 06/29/24
magnesium hydroxide 400 mg/5 mL oral suspension (Milk of Magnesia) 30 ml PO DAILYPRN PRN constipation 06/29/24
sodium phosphates 19 gram-7 gram/118 mL enema (Fleet Enema) 118 ml WA DAILYPRN PRN if dulcolax ineffective 06/29/24
polyethylene glycol 3350 17 gram oral powder packet (Miralax) 17 g PO DAILY Constipation #0 ea 07/04/24
sennosides 8.6 mg tablet (senna) 8.6 mg PO QPM Constipation #0 tabs 07/04/24
Saccharomyces boulardii 250 mg capsule (Florastor) 250 mg PO DAILY probiotic 09/14/24
ondansetron HCl 4 mg tablet 4 mg PO Q6HPRN PRN nausea 09/14/24
sulfamethoxazole 800 mg-trimethoprim 160 mg tablet (Bactrim DS) 1 tab PO BID Infection 09/14/24
tramadol 50 mg tablet 50 mg PO [id number] PRN severe pain 09/14/24
Review of Systems
-
History Source: Patient
A 12 point ROS was completed and negative except as noted: Yes
Constitutional: Reports No Symptoms
EENT: Reports No Symptoms
Respiratory: Reports No Symptoms
Cardiac: Reports No Symptoms
Abdomen/GI: Reports No Symptoms
: Reports No Symptoms
Musculoskeletal: Reports No Symptoms
Skin: Reports See HPI
Neurological: Reports No Symptoms
Endocrine: Reports No Symptoms
Hematologic/Lymphatic: Reports No Symptoms
Psych: Reports No Symptoms
Physical Exam
Vital Signs
Vital Signs
Temp Pulse Resp BP Pulse Ox
97.9 F 75 18 107/52 95
09/14/24 11:44 09/14/24 11:50 09/14/24 11:44 09/14/24 16:00 09/14/24 14:35
Physical Exam
General: Well Developed, Well Nourished and No Apparent Distress
HEENT: NormoCephalic, Moist mucous membranes and Atraumatic
Respiratory: Clear
Cardiac: S1/S2 and Regular Rhythm; No Murmur or Rub
GI: Soft, Non Tender, Non Distended and Normal Bowel Sounds; No Organomegaly
Rectal: Deferred by Provider
Musculoskeletal: No Clubbing, No Cyanosis and No Edema
Skin: No Rash
Neuro: Nonfocal/grossly intact
Laboratory Results
-
09/14/24 12:08
09/14/24 12:08
Laboratory Results
Total Bilirubin 0.3 mg/dl (0.2-1.3) 09/14/24 12:08
AST 20 U/L (14-36) 09/14/24 12:08
ALT 14 U/L (0-35) 09/14/24 12:08
Alkaline Phosphatase 93 U/L (38-126) 09/14/24 12:08
Data Reviewed
-
Lab Data: Labs Reviewed by me
Old Records: Reviewed
Impression/Plan
-
IMPRESSION:
PLAN:
# New complex breast abscess despite recent DAVID drain for abscess
# History of surgical site infection
-Prior culture grew MRSA
-Vancomycin
-IR consulted for insertion of another drain tomorrow
-ID consulted
-Breast surgery consulted
-Continue tramadol for pain
Advanced dementia
History of CVA with left hemiplegia
Chronic left hemiparesis
Protein calorie malnutrition
Constipation
-Continue bowel regimen
DNR
DVT prophylaxis�heparin
Regular diet
[2024-09-14] MEDS: VANCOCIN 200 IV (17:57)
--- NOTE | 2024-09-14 17:59 | HPS.HSE ---
Family Physician
-
Family Physician: NOT KNOW UNKNOWN - PT DOES
Chief Complaint
-
breast abscess
History of Present Illness
84-year-old female past medical history of CVA with left hemiplegia left breast abscess with DAVID drain, advanced dementia, chronic left hemiparesis, protein calorie malnutrition, presenting to the emergency room outpatient ultrasound of the breast
showing new area of drainage.
Patient cannot provide any history and does not even know that she is in the hospital.
She she feels tired but denies any fever or nausea or vomiting diarrhea.
Patient was recently admitted from 06/29 to 07/04 who underwent left breast cyst biopsy on June 23 developed significant erythema and induration at the site of the biopsy with later purulent discharge concerning for left breast abscess. She underwent
IR aspiration and drain placement. Cultures positive for MRSA. She was treated vancomycin transition to oral doxycycline and completed 14-day course.
Medical History
Past Medical History
Past Medical History: Reports Other (CVA with left hemiplegia left breast abscess with DAVID drain, advanced dementia, chronic left hemiparesis, protein calorie malnutrition)
Past Surgical History: Reports None
Social History
Tobacco: Non-smoker
Alcohol: None
Drug: None
Family History
Family History: Not pertinent
Allergies / Home Medications
Allergies reflects when Allergies were last updated in [facility].
Home Medications with original date entered in [facility]
Allergy/Medication List:
Allergies
Allergy/AdvReac Type Severity Reaction Status Date / Time
No Known Allergies Allergy Verified 08/18/24 03:12
Home Medications
acetaminophen 325 mg tablet (Tylenol) 650 mg PO Q4HPRN PRN mild pain/fever >100.4 06/29/24
bisacodyl 10 mg rectal suppository (Dulcolax (bisacodyl)) 10 mg SC DAILYPRN PRN constipation, mom ineffective 06/29/24
magnesium hydroxide 400 mg/5 mL oral suspension (Milk of Magnesia) 30 ml PO DAILYPRN PRN constipation 06/29/24
sodium phosphates 19 gram-7 gram/118 mL enema (Fleet Enema) 118 ml SC DAILYPRN PRN if dulcolax ineffective 06/29/24
polyethylene glycol 3350 17 gram oral powder packet (Miralax) 17 g PO DAILY Constipation #0 ea 07/04/24
sennosides 8.6 mg tablet (senna) 8.6 mg PO QPM Constipation #0 tabs 07/04/24
Saccharomyces boulardii 250 mg capsule (Florastor) 250 mg PO DAILY probiotic 09/14/24
ondansetron HCl 4 mg tablet 4 mg PO Q6HPRN PRN nausea 09/14/24
sulfamethoxazole 800 mg-trimethoprim 160 mg tablet (Bactrim DS) 1 tab PO BID Infection 09/14/24
tramadol 50 mg tablet 50 mg PO [id number] PRN severe pain 09/14/24
Review of Systems
-
History Source: Patient
A 12 point ROS was completed and negative except as noted: Yes
Constitutional: Reports No Symptoms
EENT: Reports No Symptoms
Respiratory: Reports No Symptoms
Cardiac: Reports No Symptoms
Abdomen/GI: Reports No Symptoms
: Reports No Symptoms
Musculoskeletal: Reports No Symptoms
Skin: Reports See HPI
Neurological: Reports No Symptoms
Endocrine: Reports No Symptoms
Hematologic/Lymphatic: Reports No Symptoms
Psych: Reports No Symptoms
Physical Exam
Vital Signs
Vital Signs
Temp Pulse Resp BP Pulse Ox
97.9 F 75 18 107/52 95
09/14/24 11:44 09/14/24 11:50 09/14/24 11:44 09/14/24 16:00 09/14/24 14:35
Physical Exam
General: Well Developed, Well Nourished and No Apparent Distress
HEENT: NormoCephalic, Moist mucous membranes and Atraumatic
Respiratory: Clear
Cardiac: S1/S2 and Regular Rhythm; No Murmur or Rub
GI: Soft, Non Tender, Non Distended and Normal Bowel Sounds; No Organomegaly
Rectal: Deferred by Provider
Musculoskeletal: No Clubbing, No Cyanosis and No Edema
Skin: Other (DAVID draim ); No Rash
Neuro: Nonfocal/grossly intact
Laboratory Results
-
09/14/24 12:08
09/14/24 12:08
Laboratory Results
Total Bilirubin 0.3 mg/dl (0.2-1.3) 09/14/24 12:08
AST 20 U/L (14-36) 09/14/24 12:08
ALT 14 U/L (0-35) 09/14/24 12:08
Alkaline Phosphatase 93 U/L (38-126) 09/14/24 12:08
Data Reviewed
-
Lab Data: Labs Reviewed by me
Old Records: Reviewed
Impression/Plan
-
IMPRESSION:
PLAN:
# New complex breast abscess despite recent DAVID drain for abscess
# History of left breast cyst biopsy complicated by cellulitis/abscess
-Prior culture grew MRSA
-Check blood culture
-Vancomycin
-IR consulted for insertion of another drain tomorrow
-ID consulted
-Breast surgery consulted
-Continue tramadol for pain
Advanced dementia
History of CVA with left hemiplegia
Chronic left hemiparesis
Protein calorie malnutrition
Constipation
-Continue bowel regimen
DNR
DVT prophylaxis�heparin
Regular diet
[2024-09-14] MEDS: VANCOCIN 150 IV (19:46)
[2024-09-14] MEDS: SENOKOT 8.6 MG PO (19:49)
[2024-09-14] MEDS: HEPARIN 5000 UNITS SC (19:50)
--- NOTE | 2024-09-14 19:54 | PHA.VAN.IN ---
Addendum entered and electronically signed by Charu Harmon RPH 09/15/24 09:22:
Note: During Jun 2024 admission patient was on Vanc 750mg Q12H and regimen provided the following patient-specific PK:
Extrapolated Cmax (mcg/mL): 26 [peak was drawn appropriately (drawn ~1.6hrs after end of previous infusion)]
Extrapolated Cmin (mcg/mL): 17.3 [trough Drawn appropriately; levels were drawn at steady state after 8th maintenance dose]
Calculated AUC (mcg*h/mL): 513
Calculated ke: 0.0372
Calculated half life (H): 18.6
Calculated Vd (L): 105 (1.4L/kg)
Calculated Vanc CL (ml/min): 65
Regimen provided appropriate AUC; however, half-life was > dosing interval and additional accumulation was expected. Cmin was also at higher end of goal range and additional accumulation could lead to supratherapeutic levels. Regimen pre-emptively
adjusted to Q24H interval with Vancomycin 1250mg Q24H.
Original Note:
Assessment
- Assessment
Renal Function: Appears elevated from baseline (07/04/24 SCR = 0.6)
Concomitant Antimicrobials: NONE
- Previous Dosing Experience
Previous Regimen: 1250MG IV Q24H
Date of Regimen: 07/04/24
Provided Trough of: UNKNOWN
Provided AUC of: UNKNOWN
Patient's SCR is: Elevated compared to previous dosing experience (07/04/24 SCR = 0.4)
Patient's weight is: Decreased compared to previous dosing experience (07/04/24 WT = 74.5 KG)
AUC Dosing Plan
- Dosing Variables
Dosing Weight (kg): 73.6
Dosing CrCl (ml/min): 54
Vd coefficient (L/kg): 0.7
- Empiric Dosing
Initial / Loading Dose: 1750MG TOTAL
Maintenance Regimen: 1250MG IV Q24H
Estimated AUC (mcg*h/mL): 511
Estimated Peak (mcg*h/mL): 35
Estimated Trough (mcg/ml): 11.6
Estimated Half Life (H): 14.1
Pharmacokinetics Vancomycin I
- -
Patient Age: 84
Patient Sex: Female
Vancomycin Day #: 1
Indication: Skin And Soft Tissue (BREAST ABSCESS)
Requesting Provider: SARA
Height / Weight:
Height 5 ft 9 in
Actual Weight 73.6 kg
Pertinent Past Medical History: BREAST BIOPSY WITH ABSCESS 07/16
- Vital Signs / Lab Results
Temp Pulse Resp BP Pulse Ox
97.9 F 75 18 105/63 95
09/14/24 11:44 09/14/24 11:50 09/14/24 11:44 09/14/24 18:00 09/14/24 18:45
Lab Results - Hematology
09/14/24
12:08
WBC 11.8 H
Lab Results - Chemistry
09/14/24
12:08
BUN 18 H
Creatinine 0.8
Estimated Creat Clear 54
Albumin 4.1
--- NOTE | 2024-09-14 23:40 | CON.GS ---
Consultation
-
Date/Time Consultation Requested: 09/14/24 1537H
Date/Time Consultation Performed: 09/14/24 2340H
Requesting Provider: Lola
Performing Provider: Chelly
Reason for Consultation: breast abscess
Medical History
-
Chief Complaint: breast abscess
History of Present Illness:
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
placed 09/15/24. The patient is MRSA positive
Past Medical History
Past Medical History: CVA and Other (CVA, severe dementia, protein calorie malnutrition)
Past Surgical History: Other (abscess drainage and left breast biopsy)
Social History
Tobacco: Non-Smoker
Alcohol: None
Personal:
Living: [facility]
Family History
Family History: Reviewed & Noncontributory
Allergies / Home Medications
Allergy/AdvReac Type Severity Reaction Status Date / Time
No Known Allergies Allergy Verified 08/18/24 03:12
�Medication �Instructions �Recorded �Confirmed �Type
acetaminophen 325 mg tablet 650 mg PO Q4HPRN PRN mild 06/29/24 09/14/24 History
(Tylenol) pain/fever >100.4
bisacodyl 10 mg rectal suppository 10 mg GA DAILYPRN PRN 06/29/24 09/14/24 History
(Dulcolax (bisacodyl)) constipation, mom ineffective
magnesium hydroxide 400 mg/5 mL 30 ml PO DAILYPRN PRN constipation 06/29/24 09/14/24 History
oral suspension (Milk of Magnesia)
sodium phosphates 19 gram-7 118 ml GA DAILYPRN PRN if dulcolax 06/29/24 09/14/24 History
gram/118 mL enema (Fleet Enema) ineffective
polyethylene glycol 3350 17 gram 17 g PO DAILY Constipation #0 ea 07/04/24 09/14/24 Rx
oral powder packet (Miralax)
sennosides 8.6 mg tablet (senna) 8.6 mg PO QPM Constipation #0 tabs 07/04/24 09/14/24 Rx
Saccharomyces boulardii 250 mg 250 mg PO DAILY probiotic 09/14/24 09/14/24 History
capsule (Florastor)
ondansetron HCl 4 mg tablet 4 mg PO Q6HPRN PRN nausea 09/14/24 09/14/24 History
sulfamethoxazole 800 1 tab PO BID Infection 09/14/24 09/14/24 History
mg-trimethoprim 160 mg tablet
(Bactrim DS)
tramadol 50 mg tablet 50 mg PO W25IBMR PRN severe pain 09/14/24 09/14/24 History
Review of Systems
-
Unable to obtain full review of systems at this time due to: Dementia
A 10 point review of systems was completed, and was negative except as per HPI.
Physical Exam
Vital Signs
Temp Pulse Resp BP Pulse Ox
99.3 F 72 19 131/67 94
09/14/24 19:49 09/14/24 19:49 09/14/24 19:49 09/14/24 19:49 09/14/24 19:49
09/13/24 09/14/24 09/15/24
06:59 06:59 06:59
Actual Weight 67.177 kg
Body Mass Index (BMI) 23.2
Lab Results
09/14/24 12:08
09/14/24 12:08
WBC 11.8 10^3/uL (4.8-10.8) H 09/14/24 12:08
Hgb 12.5 g/dL (12.0-16.0) 09/14/24 12:08
Hct 38.1 % (37.0-47.0) 09/14/24 12:08
Plt Count 327 10^3/uL (130-400) 09/14/24 12:08
Abs Immat Gran (auto) 0.0 10^3/uL (0-0.05) 09/14/24 12:08
Neutrophils % 71.3 % (42.2-75.2) 09/14/24 12:08
Physical Exam
General: No Apparent Distress and Poor Appetite
HEENT: Normocephalic and Anicteric
Respiratory: Clear
Breast: Other (catheter in place in left breast with erythema and pointing mass)
Musculoskeletal: No Clubbing
Skin: Warm and Dry
Neuro: Other (severe dementia)
Data Reviewed
-
Radiology: Image Personally Visualized and interpreted, Report Reviewed by me and Discussed with Physician
Ultrasound: Image Personally Visualized and interpreted, Report Reviewed by me and Discussed with Physician
Labs: Labs Reviewed by me
Old Records: Reviewed
Critical Care Time (in minutes): 30
Total Time Spent with Patient (in minutes): 30
Assessment / Plan
-
84 Y/O frail, declining malnourished female with extension of left breast abscess. She will undergo IV drainage tomorrow and pt should have catheter flushes q shift. With non-healing skin issue for this length of time, end of life is suggested and
strongly recommend palliative consult while in hospital. First organ to fail is the largest, the skin. Cancer has been ruled out by biopsy. Pt is not an operative candidate if this drainage fails. Will follow.
[2024-09-15] MEDS: VANCOCIN 275 MG IV (06:00)
[2024-09-15 06:50] LABS: % Eosinophils 3.2 % (0-6); % Immature Granulocytes 0.2 % (0-0.5); % Lymphocytes 17.8 % (20.5-51.1); % Monocytes 6.7 % (1.7-9.3); % Neutrophils 71.1 % (42.2-75.2); Absolute Basophils 0.1 10^3/uL (0-0.2); Absolute Eosinophils 0.3 10^3/uL (0-0.7); Absolute Lymphocytes 1.8 10^3/uL (1.2-3.4); Absolute Monocytes 0.7 10^3/uL (0.1-0.6); Absolute Neutrophils 7.1 10^3/uL (1.4-6.5); Hemoglobin 12.7 g/dL (12.0-16.0); Mean Corp Hgb Conc. 32.6 g/dL (33.0-37.0); Mean Corpuscular Hgb 26.5 pg (27.0-31.0); Mean Corpuscular Volume 81.3 fL (81.0-99.0); Nucleated Red Blood Cells % 0 %; Platelet Count 314 10^3/uL (130-400); Red Cell Dist. Width 16.4 % (11.5-14.5)
[2024-09-15 07:11] LABS: ALT (SGPT) 13 U/L (0-35); AST (SGOT) 21 U/L (14-36); Albumin 3.9 g/dl (3.5-5.0); Alkaline Phosphatase 100 U/L (38-126); Blood Urea Nitrogen 15 mg/dl (7-17); Calcium 9.6 mg/dl (8.4-10.2); Carbon Dioxide 21 mmol/L (22-30); Chloride 106 mmol/L (98-107); Estimated Creatinine Clearance 57 ml/min; Glucose 102 mg/dl (70-99); Potassium 4.7 mmol/L (3.5-5.1); Sodium 138 mmol/L (135-145); Total Bilirubin 0.4 mg/dl (0.2-1.3); Total Protein 7.1 g/dl (6.3-8.2); eGFR > 60.00
[2024-09-15 07:46] VITALS: BP 114/61
[2024-09-15] MEDS: FLORASTOR 250 MG PO (08:21)
[2024-09-15] MEDS: MIRALAX 17 GRAMS PO (08:21)
[2024-09-15] MEDS: DESENEX/MITRAZOL/ZEASORB 1 APPLIC TOPICAL ×2 (08:21→19:58)
[2024-09-15] MEDS: HEPARIN SC ×3 (08:22→20:06)
[2024-09-15] MEDS: HEPARIN 5000 UNITS SC (08:26)
--- NOTE | 2024-09-15 08:55 | W.PN.HOSP.TC ---
Addendum entered and electronically signed by Ariela Ashby MD 09/15/24 14:20:
I saw and evaluated the patient independently. I reviewed the resident�s note and agree with findings and plan as documented by Dr. Leon.
GENERAL: chronically ill demented appearing female in no apparent distress
HEENT: NC/AT
HEART: regular rate and rhythm, +S1, +S2
LUNGS : clear to auscultation bilaterally
BREAST: drain in outer aspect of left breast
ABDOM: soft, nontender, nondistended, + bowel sounds
EXT: no cyanosis, clubbing, or edema
NEUROLOGIC: apparent dementia--chronic left hemiplegia
L breast cyst biopsy complicated by cellulitis/abscess--Skin failure L breast-- Prior culture grew MRSA, cont vanco--apprec ID and breast surgery (Dr. Spaulding)--await IR placement of 2nd drain--Dr. Spaulding not convinced that this will
heal--recommending Palliative Care Consult--cancer has been ruled out with biopsies; not surgical candidate if drain fails; declining health and failing skin for this period of time raises concern for end of life, recommended palliative consult
Advanced dementia- Pleasant demeanor, unaware of drain in L breast
Protein calorie malnutrition- Dietary supplementation per nutrition
DVT proph
Code status: DNR
Original Note:
Today's Communication/Plan
-
IR drainage
Assessment / Plan
Assessment / Plan
84yo F with PMH L breast abscess with DAVID drain, CVA with chronic L hemiplegia, dementia, who presented to ED 09/14/24 after outpatient breast US showed new area of drainage. She cannot provide history and is unaware of medical problems.
Breast abscess
Skin failure L breast
H/o L breast cyst biopsy complicated by cellulitis/abscess
- Prior culture grew MRSA
- Currently on vancomycin. ID consulted
- IR consulted for insertion of another drain
- Breast surgery consulted- cancer has been ruled out with biopsies; not surgical candidate if drain fails; declining health and failing skin for this period of time raises concern for end of life, recommended palliative consult
Advanced dementia
- Pleasant demeanor, unaware of drain in L breast
Protein calorie malnutrition
- Dietary supplementation per nutrition
Code status: DNR
VTE ppx: heparin sc
Diet: regular
Dispo planning: TBD; from [facility]
Anticipated Discharge: > 48 hours
Subjective/Interval History
-
Date of Service: September 15, 2024
No events overnight. No complaints, she says she feels fine. She denies lightheadedness, dizziness, chest pain, shortness of breath, nausea, vomiting, diarrhea, constipation. She is poor historian and pleasantly demented, unaware of drain in L
breast.
Objective Data
-
Labs:
Laboratory Results
09/15/24
05:37
WBC 10.0
Hgb 12.7
Hct 39.0
Plt Count 314
Sodium 138
Potassium 4.7
Chloride 106
Carbon Dioxide 21 L
BUN 15
Creatinine 0.7
Glucose 102 H
Calcium 9.6
Total Bilirubin 0.4
AST 21
ALT 13
Alkaline Phosphatase 100
Vital Signs:
Vital Signs
Temp Pulse Resp BP Pulse Ox
98.0 F 79 16 114/61 96
09/15/24 07:46 09/15/24 07:46 09/15/24 07:46 09/15/24 07:46 09/15/24 07:46
I&O
09/14/24 09/15/24 09/16/24
06:59 06:59 06:59
Intake Total 865 / 865
Balance 865 / 865
Review of Systems
-
History Source: Patient
All other systems: Not reviewed unless documented
Physical Exam
-
General: Well Developed, Well Nourished, No Apparent Distress, Comfortable and Conversant
HEENT: Normocephalic and Atraumatic
Respiratory: Clear to Auscultation and Non Labored Respirations
Cardiac: Regular Rhythm and S1/S2
Breast: Other (L breast: DAVID drain in place, serosanguinous drainage, exam limited by pain/tenderness)
GI: Soft, Nontender, Nondistended and Normal Bowel Sounds
Musculoskeletal: No Edema
Skin: Warm and Dry
Neuro: Awake, Alert, Oriented (oriented to person, place, Oct unsure year) and Nonfocal/Grossly Intact
Psych: Calm and Apparent Dementia
Data Reviewed
-
Ultrasound: Report Reviewed by me
Labs: Labs Reviewed by me
--- NOTE | 2024-09-15 09:16 | PHA.VAN.FU ---
Vancomycin Assessment / Plan
- Assessment
Renal Function: Stable
WBC's are: WNL
In the past 24 hrs, patient has been: Afebrile
- Dosing Plan
Continue: Vanc 1250mg Q24H based on prior dosing experience
- Monitoring Plan
No level(s) ordered at this time: consider levels in next few days
Monitoring Comments: may take longer to reach steady state with prior prolonged half-life
- Follow Up
Pharmacy will continue to follow.
Vancomycin Follow UP
- -
Patient Age: 84
Patient Sex: Female
Vancomycin Day #: 2
Indication: Skin And Soft Tissue
Requesting Provider: Dr. aClzada
Pertinent Antimicrobial Allergies:
NKDA
Height / Weight:
Height 5 ft 7 in
Actual Weight 67.177 kg
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
- Vital Signs / Lab Results
Temp Pulse Resp BP Pulse Ox
98.0 F 79 16 114/61 96
09/15/24 07:46 09/15/24 07:46 09/15/24 07:46 09/15/24 07:46 09/15/24 07:46
Lab Results - Hematology
09/14/24 09/15/24
12:08 05:37
WBC 11.8 H 10.0
Lab Results - Chemistry
09/14/24 09/15/24
12:08 05:37
BUN 18 H 15
Creatinine 0.8 0.7
Estimated Creat Clear 54 57
Albumin 4.1 3.9
--- NOTE | 2024-09-15 09:50 | CON.ID ---
Consultation
-
Date/Time Consultation Requested: 09/14/24 19:17
Date/Time Consultation Performed: 09/14/24 9:50
Requesting Provider: Dr Calzada
Performing Provider: Dr Stevens
Reason for Consultation: relapse of breast abscess
Chief Complaint / Past History
Chief Complaint
left breast abscess
History of Present Illness
Ms Vega is an 84 year old female with history of CVA with L hemiplegia, dematia and admission here 07/01/24 for L breast abscess due to MRSA. Symptoms began with blood L breast discharge, core biopsy showed inflammatory changes and US directed
aspiration by radiology with atypical cells but no diagnosis of carcinoma, then breast became red and swollen, sent to the ER where large complex fluid collection was IDd. She was not septic. IR aspirated the collected adn placed a drain. Drain
was managed outpatient by breast surgery. Antibiotics were initially vancomycin/zosyn and later on consolidation therapy with doxycycline x14 days which would have completed about 2 months ago. 08/09 drain was removed at Dr Spaulding's office. 08/16
Frank turner called Dr Spaulding that L breast was swollen again, bedside US was done there. 08/19 a drain was replaced outpatient and a culture sent MRSA - sensitive to bactrim, doxycycline, levofloxacin, vancomycin similar to 06/29 culture. 09/07
Dr Page office was [facility] that the breast was red, swollen and tender - she recommended a drain swab and that they start bactrim over doxycycline - an order was faxed over. I do not see those results in ecw. On
arrival she is on bactrim. Reports that breast feels irriatated, she has drainage on a dressing inferior to the nipple which appears to be a previous incision site or drain site. There is also a drain in the breast. The breast itself is not red,
swollen or significantly tender.
Since arrival here she has been afebrile, bp stable, wbc initially 11.8 now 10.0, hgb 12.7, plt 314, no L shift, cr 0.7, t bili 0.4, ast 21, alt 13, alk phos 100, 09/14 L breast US completed with complex collection about 7x4x6 with drainage catheter
- Dr Spaulding commented that another compartment is now involved and another drain is to be placed 09/15/24.
Past History
Additional Past Medical History:
CVA, severe dementia, protein calorie malnutrition
Additional Past Surgical History:
abscess drainage and left breast biopsy
Allergy History:
No Known Allergies Allergy (Verified 08/18/24 03:12)
Medications Reviewed: Yes
Social History
Tobacco: Non-Smoker
Alcohol: None
Personal:
Family History
Family History: Not Pertinent
Review of Systems
Review of Systems
unable to obtain due to the condition of the patient
Vital Signs
Temp Pulse Resp BP Pulse Ox
98.0 F 79 16 114/61 96
09/15/24 07:46 09/15/24 07:46 09/15/24 07:46 09/15/24 07:46 09/15/24 09:37
Physical Exam
Physical Exam
Constitutional: No Acute Distress and Chronically Ill
Cardiovascular: Regular Rate and S1/S2; Negative Murmur or Rub
Pulmonary: Clear and Symmetric; Negative Wheezes, Rales or Rhonchi
Gastrointestinal: Soft, Non Tender, Non Distended and Normal Bowel Sounds
Skin: Warm and Dry; Negative Rash or Jaundice
Wound: Other (L breast with purulent drainage on dressing and drain in place; breast no significantly red, swollen or tender)
Neurological: Awake
Lab / Diagnostic Study Results
09/15/24 05:37
09/15/24 05:37
Abs Immat Gran (auto) 0.0 10^3/uL (0-0.05) 09/15/24 05:37
Absolute Neuts (auto) 7.1 10^3/uL (1.4-6.5) H 09/15/24 05:37
Absolute Lymphs (auto) 1.8 10^3/uL (1.2-3.4) 09/15/24 05:37
Absolute Monos (auto) 0.7 10^3/uL (0.1-0.6) H 09/15/24 05:37
Absolute Basos (auto) 0.1 10^3/uL (0-0.2) 09/15/24 05:37
Immature Gran % 0.2 % (0-0.5) 09/15/24 05:37
Neutrophils % 71.1 % (42.2-75.2) 09/15/24 05:37
Lymphocytes % 17.8 % (20.5-51.1) L 09/15/24 05:37
Monocytes % 6.7 % (1.7-9.3) 09/15/24 05:37
Eosinophils % 3.2 % (0-6) 09/15/24 05:37
Basophils % 1.0 % (0-2) 09/15/24 05:37
Microbiology Results
Micro:
08/18 culture:
Wound/abscess/other Cult Final 08/20/24-940
Many Staph aureus MRSA
Organism 1 Staph aureus MRSA
1. Staph aureus MRSA
M.I.C. RX
--------- ---
Amoxicillin/Potas. Clavulanate >4/2 R
Ampicillin >8 R
Clindamycin <=0.5 S
Gentamicin <=4 S
Erythromycin <=0.5 S
Levofloxacin <=1 S
Oxacillin >2 R
Tetracycline <=4 S
Trimethoprim/Sulfamethoxazole <=0.5/9.5 S
Vancomycin 2 S
06/29 culture:
Wound/abscess/other Cult Final 07/02/24-08
Few Staph aureus MRSA
Isolation Precautions [place] [id number] on 07/01/24 at 0945 by LISSY
Organism 1 Staph aureus MRSA
1. Staph aureus MRSA
M.I.C. RX
--------- ---
Amoxicillin/Potas. Clavulanate >4/2 R
Ampicillin >8 R
Clindamycin <=0.5 S
Gentamicin <=4 S
Erythromycin <=0.5 S
Levofloxacin <=1 S
Oxacillin >2 R
Tetracycline <=4 S
Trimethoprim/Sulfamethoxazole <=0.5/9.5 S
Vancomycin 1 S
Assessment / Plan
Relapse of L Breast Abscess/Cellulitis
L hemiplegia - chronic
- if febrile then send blood cultures x2
- for drain placement into new compartment today - requested cultures as site has been accesses multiple times and copathogens possible - orders placed
- currently on vancomycin - MRSA isolates previously susceptible, continue
- prediabetic as of 07/16, no need to repeat
- will follow
--- NOTE | 2024-09-15 09:58 | W.PN.UPDATE ---
Update Note
Progress Note Update
Await IR drainage of secondary abscess collection. I will be out of town, Dr. Tamez will cover for me.
--- NOTE | 2024-09-15 13:25 | CM ---
Addendum entered by Joan Marsh 09/15/24 14:23:
CM spoke with Mo at [facility], charge nurse indicated that patient is non ambulatory and has a severe contracture of the left arm. Patient family is involved per nursing at SNF.
Original Note:
Patient seen at bedside with physician. Patient is LTC at [facility]. Patient recently here at in jul 16. CM left VM at [facility] asking for update on patient functioning. Patient confused but resting comfortably in room CM will continue to follow for
discharge planning needs.
Plan; [facility]; pending confirmation from facility
[2024-09-15 15:16] VITALS: BP 115/66
--- NOTE | 2024-09-15 15:48 | WOUNDNOTE ---
WOC RN NOTE: Visited patient for consult of left breast wound but she was on her way to IR. Will follow up with patient on 09/16.
--- NOTE | 2024-09-15 16:56 | W.PN.UPDATE ---
Update Note
Progress Note Update
Plastic surgery update note
I was asked to see the patient on behalf of Dr. Spaulding who is out of town. On arrival, patient was down in IR getting drained. Reviewed clinical notes and diagnostics. Treatment seems appropriate at this time. Available for further assessment
surgical intervention if the clinical scenario changes.
--- NOTE | 2024-09-15 17:12 | W.PN.IRAD.PR ---
Procedure Note
-
Left breast drainage catheter unable to aspirate. Catheter well positioned in fluid collection. Given inability to aspirate, catheter was exchanged for a new 8.5 F tube. This tube was connected to suction bulb drainage. Unfortunately, given
viscosity of contents and likely chronic blood products, I don't believe small bore drainage catheters will resolve this collection. I and D may be needed.
[2024-09-15] MEDS: SENOKOT 8.6 MG PO (17:38)
[2024-09-15 23:13] VITALS: BP 114/62
[2024-09-16] MEDS: VANCOCIN 275 MG IV (06:08)
[2024-09-16] MEDS: TYLENOL 650 MG PO (06:12)
[2024-09-16 07:06] LABS: Hemoglobin 12.6 g/dL (12.0-16.0); Mean Corp Hgb Conc. 32.3 g/dL (33.0-37.0); Mean Corpuscular Hgb 26.4 pg (27.0-31.0); Mean Corpuscular Volume 81.6 fL (81.0-99.0); Mean Platelet Volume 11.1 fL (7.4-10.4); Platelet Count 318 10^3/uL (130-400); Red Blood Cell Count 4.78 10^6/uL (4.20-5.40); Red Cell Dist. Width 16.2 % (11.5-14.5); White Blood Cell Count 9.7 10^3/uL (4.8-10.8)
[2024-09-16 07:43] LABS: Blood Urea Nitrogen 16 mg/dl (7-17); Calcium 9.8 mg/dl (8.4-10.2); Carbon Dioxide 22 mmol/L (22-30); Chloride 105 mmol/L (98-107); Estimated Creatinine Clearance 57 ml/min; Glucose 94 mg/dl (70-99); Potassium 4.8 mmol/L (3.5-5.1); Sodium 139 mmol/L (135-145); eGFR > 60.00
[2024-09-16 07:56] VITALS: BP 102/40
[2024-09-16] MEDS: FLORASTOR 250 MG PO (08:08)
[2024-09-16] MEDS: HEPARIN 5000 UNITS SC ×2 (08:08→20:15)
[2024-09-16] MEDS: MIRALAX 17 GRAMS PO (08:08)
[2024-09-16] MEDS: DESENEX/MITRAZOL/ZEASORB 1 APPLIC TOPICAL ×2 (08:16→20:15)
--- NOTE | 2024-09-16 08:17 | PHA.VAN.FU ---
Vancomycin Assessment / Plan
- Assessment
Renal Function: Stable
WBC's are: WNL
In the past 24 hrs, patient has been: Afebrile
- Dosing Plan
Continue: Vanc 1250mg Q24H
- Monitoring Plan
No level(s) ordered at this time: consider levels in next few days
- Follow Up
Pharmacy will continue to follow.
Vancomycin Follow UP
- -
Patient Age: 84
Patient Sex: Female
Vancomycin Day #: 3
Indication: Skin And Soft Tissue
Requesting Provider: Dr. Calzada / Rodney
Pertinent Antimicrobial Allergies:
NKDA
Height / Weight:
Height 5 ft 7 in
Actual Weight 67.177 kg
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
- Vital Signs / Lab Results
Temp Pulse Resp BP Pulse Ox
97.9 F 74 16 102/40 97
09/16/24 07:56 09/16/24 07:56 09/16/24 07:56 09/16/24 07:56 09/16/24 07:56
Lab Results - Hematology
09/14/24 09/15/24 09/16/24
12:08 05:37 06:19
WBC 11.8 H 10.0 9.7
Lab Results - Chemistry
09/14/24 09/15/24 09/16/24
12:08 05:37 06:19
BUN 18 H 15 16
Creatinine 0.8 0.7 0.7
Estimated Creat Clear 54 57 57
Albumin 4.1 3.9
Microbiology Results
09/15/24 17:05 Gram Stain - Preliminary
Breast - Left
--- NOTE | 2024-09-16 09:09 | W.PN.HOSP.TC ---
Today's Communication/Plan
-
Continue wound care, antibiotics. Palliative care consult
Assessment / Plan
Assessment / Plan
84yo F with PMH L breast abscess with DAVID drain, CVA with chronic L hemiplegia, dementia, who presented to ED 09/14/24 after outpatient breast US showed new area of drainage. She cannot provide history and is unaware of medical problems.
Breast abscess
Skin failure L breast
H/o L breast cyst biopsy complicated by cellulitis/abscess
- Prior culture grew MRSA
- Currently on vancomycin. ID consulted, appreciate recs.
- IR consulted, unable to aspirate fluid collection; catheter exchanged 09/15 but may require I&D
- Breast surgery consulted- cancer has been ruled out with biopsies; not surgical candidate if drain fails; declining health and failing skin for this period of time raises concern for end of life, recommended palliative consult
- Reviewed palliative care recommendation with patient. She is agreeable, consult placed. Will call POA to update.
- Continue wound care
Advanced dementia
- Pleasant demeanor, unaware of drain in L breast
Protein calorie malnutrition
- Dietary supplementation per nutrition
Chronic L hemiplegia
Code status: DNR
VTE ppx: heparin sc
Diet: regular
Dispo planning: TBD; from [facility]
Anticipated Discharge: > 48 hours
Subjective/Interval History
-
Date of Service: September 16, 2024
No acute events overnight. Comfortable, no complaints. She is conversant appropriately, dementia apparent on further questioning- she states she lives with parents who are roughly in their 60s and she is 17 or 18 years old and just graduated from
high school. She is pleasant and unaware of her medical problems. She denies lightheadedness, dizziness, chest pain, shortness of breath, nausea, vomiting. She is not in any pain. Tolerating PO diet.
Objective Data
-
Labs:
Laboratory Results
09/16/24
06:19
WBC 9.7
Hgb 12.6
Hct 39.0
Plt Count 318
Sodium 139
Potassium 4.8
Chloride 105
Carbon Dioxide 22
BUN 16
Creatinine 0.7
Glucose 94
Calcium 9.8
Vital Signs:
Vital Signs
Temp Pulse Resp BP Pulse Ox
97.9 F 74 16 102/40 97
09/16/24 07:56 09/16/24 07:56 09/16/24 07:56 09/16/24 07:56 09/16/24 07:56
I&O
09/15/24 09/16/24 09/17/24
06:59 06:59 06:59
Intake Total 865 / 865 900 / 900
Output Total
Balance 865 / 865 885 / 885
Review of Systems
-
History Source: Patient
All other systems: Not reviewed unless documented
Physical Exam
-
General: Well Developed, Well Nourished, No Apparent Distress, Comfortable and Conversant
HEENT: Normocephalic and Atraumatic
Respiratory: Clear to Auscultation and Non Labored Respirations
Cardiac: Regular Rhythm and S1/S2
Breast: Other (L breast: DAVDI drain in place, serosanguinous drainage, exam limited by pain/tenderness)
GI: Soft, Nontender, Nondistended and Normal Bowel Sounds
Musculoskeletal: No Edema
Skin: Warm and Dry
Neuro: Awake, Alert and Nonfocal/Grossly Intact; Negative Oriented (oriented to person, knows she is hospital; states she is 17 or 18 years old, just graduated high school)
Psych: Calm and Apparent Dementia
Data Reviewed
-
Ultrasound: Report Reviewed by me
Labs: Labs Reviewed by me
--- NOTE | 2024-09-16 09:09 | CM ---
Addendum entered by Joan Marsh 09/16/24 11:26:
Update VM left for [facility] liaison and CM spoke with Priyanka WARD at [facility] with update. Please call DON re any discharge over weekend.
Original Note:
Patient seen at bedside, patient for referral to palliative care per physician. CM will continue to follow for discharge planning needs.
Plan;return to SNF; [facility] when medically appropriate.
--- NOTE | 2024-09-16 09:18 | W.PN.UPDATE ---
Update Note
Progress Note Update
I saw and evaluated the patient. I reviewed the resident�s note and agree with findings and plan as documented in the resident�s note.
Patient denies any acute complaints.
Gen: NAD, Awake and alert
Eyes: EOMI, PERRLA, no scleral icterus.
Neck: supple.
CV: RRR, +S1/S2, no m/r/g.
Resp: CTAB, no rales, wheezes, or rhonchi.
Breast exam deferred
Neuro: CN 2-12 intact
Psych: Normal mood and affect.
L breast cyst biopsy complicated by cellulitis/abscess:
-Prior culture grew MRSA, cont vanco as per ID and breast surgery (Dr. Spaulding)
-IR exchanged L breast catheter on 09/16/24
-Dr. Spaulding not convinced that this will heal and she is recommending a Palliative Care c/s which has been placed
-cancer has been ruled out with biopsies; not surgical candidate if drain fails; declining health and failing skin for this period of time raises concern for end of life
Other problems:
Advanced dementia (likely Alzheimer's type) without behavioral disturbances
Severe protein calorie malnutrition
Heparin/DNR
--- NOTE | 2024-09-16 09:38 | WOUNDNOTE ---
[facility] RN note: Patient admitted with left breast wound infection
See H&P for complete history.
PMH:
Wound Location and type/assessment: Patient admitted with left breast wound infection. Patient being followed by IR and has DAVID drain into left breast. There is a small open, dry area around nipple. No drainage noted. Patient denies pain at site.
Desenex powder in use of [facility] appearing skin under breast. Heels blanchable red. Sacrum intact.
Appetite: Patient states good appetite
Pressure redistribution devices in place: Versa Care Air, heels off-loaded on pillows. Patient repositioned to right semi-side lying position was assistance of RNNelsy.
Plan: Local wound care provided as ordered. Adhesive foam applied to heels. Will confirm orders and STEPHANE Whittington updated. Updated care plan and will follow as needed.
Note to case management of equipment requested for discharge:
Recommend follow up at wound care center upon discharge.
--- NOTE | 2024-09-16 11:40 | WOUNDNOTE ---
LEFT BREAST WOUND
--- NOTE | 2024-09-16 12:01 | W.PN.ID1 ---
Date of Service
Date of Service: September 16, 2024
Today's Communication
Continue Vancomycin for now.
Assessment / Plan
Relapse of L Breast Abscess/Cellulitis
L hemiplegia - chronic
- if febrile then send blood cultures x2
- s/p catheter exchange to 8.5F
- Cx pending
- Continue vancomycin pending cx .MRSA isolates previously susceptible.
- Palliative care evaluation in progress.
Chief Complaint
-: Other (breast abscess)
Subjective / Review of Systems
Comfortable. No complaints.
Vital Signs / Physical Exam
Vital Signs
Vital Signs
Temp Pulse Resp BP Pulse Ox
97.9 F 74 16 102/40 97
09/16/24 07:56 09/16/24 07:56 09/16/24 07:56 09/16/24 07:56 09/16/24 07:56
Physical Exam
Constitutional: No Acute Distress
Gastrointestinal: Soft, Non Tender and Non Distended
Wound: Other (Left breast drain with cloudy bloody fluid, mild erythema left breast)
Objective Data
Lab Data
Lab Results
09/16/24 06:19
09/16/24 06:19
Estimated Creat Clear 57 ml/min 09/16/24 06:19
Total Bilirubin 0.4 mg/dl (0.2-1.3) 09/15/24 05:37
AST 21 U/L (14-36) 09/15/24 05:37
ALT 13 U/L (0-35) 09/15/24 05:37
Alkaline Phosphatase 100 U/L (38-126) 09/15/24 05:37
Most recent labs reviewed.
Micro Results:
09/15/24 17:05 Wound Culture - Pending
Breast - Left Gram Stain - Preliminary
09/15/24 17:05 Anaerobic Culture - Pending
Breast - Left
--- NOTE | 2024-09-16 12:58 | W.CON.PAL ---
Consultation
-
Date/Time Consultation Requested: 09/16
Date/Time Consultation Performed: 09/16
Requesting Provider: Ann
Performing Provider: Rosi LOPEZ
Reason for Consult: Goals of Care Discussion
Primary Diagnosis: dementia, recurrent breast abscess
Consult Requested By: Patient's Physician
Reason for Admission
Illness Course/HPI
84 year old F with dementia, severe protein priscilla malnutrition, CVA with L sided weakness and recurrent/nonhealing L breast cyst/abscess s/p drain placement admitted from shelter with worsening L breast wound.
Per chart review, has had recurrent L breast cyst/abscess with cellulitis. Previous drain placement with +MRSA s/p antibiotics. Now with recurrence and skin failure, poorly draining. Seen by surgery and IR - not a surgical candidate. New drain
placed 09/15, +viscous contents and drain not likely to clear infection.
Seen at bedside this PM with no family present. Patient unable to tell me why she came to the hospital. Asked her who helps make her medical decisions she tells me her mom and dad. Says shes been at [facility] for a week or two.
Denies pain at drain site. Otherwise appears comfortable.
Pain & Symptom Assessment
[place] Symptom Scale 0=none, 10=worst
Pain: 0
Nausea: 0
Appetite: 0
Shortness of Breath: 0
Objective Data
-
Objective Data:
Vital Signs
Temp Pulse Resp BP Pulse Ox
97.9 F 74 16 102/40 97
09/16/24 07:56 09/16/24 07:56 09/16/24 07:56 09/16/24 07:56 09/16/24 07:56
Laboratory Results
09/16/24 06:19
09/16/24 06:19
Total Protein 7.1 g/dl (6.3-8.2) 09/15/24 05:37
Albumin 3.9 g/dl (3.5-5.0) 09/15/24 05:37
Palliative Performance Scale
Palliative Performance Scale:
PPS Level Ambulation Activity & Evidence of Disease Self Care Intake Conscious Level
100% Full Normal Activity & Work; Full Intake Full
No Evidence of Disease
90% Full Normal Activity & Work; Full Normal Full
Some Evidence of Disease
80% Full Normal Activity with Effort Full Normal or Full
Some Evidence of Disease Reduced
70% Reduced Unable Normal Job/Work Full Normal or Full
Significant Disease Reduced
60% Reduced Unable Hobby/Housework Occasional Normal or Full or Confusion
Significant Disease Assistance Reduced
50% Mainly Sit/Lie Unable to do Any Work Considerable Normal or Full or Confusion
Extensive Disease Assistance Req'd Reduced
40% Mainly in Bed Unable to do Most Activity Mainly Assistance Normal or Full or Drowsy;
Extensive Disease Reduced +/- Confusion
30% Totally Bed Unable to do Any Activity Total Care Normal or Full or Drowsy;
Bound Extensive Disease Reduced +/- Confusion
20% Totally Bed Bound Unable to do Any Activity Total Care Minimal to Full or Drowsy;
Extensive Disease Sips +/- Confusion
10% Totally Bed Bound Unable to do Any Activity Total Care Mouth Care Drowsy or Coma;
Extensive Disease Only +/- Confusion
0%
PPS Score Level:
Palliative Performance Score Response
Palliative Performance Score Response: 50%
Physical Exam
-
General: No Apparent Distress and Comfortable
HEENT: Normocephalic
Respiratory: Clear to Auscultation
Cardiac: Regular Rhythm
Peripheral Vascular: No Edema
Breast: Other (L breast with redness, +drain with thick bloody output)
GI: Soft, Nontender and Nondistended
Skin: Warm
Neuro: Awake and Alert
Psych: Confused and Apparent Dementia
Assessment / Plan
-
Assessment/Plan:
84 year old F with dementia and non healing L breast abscess s/p drain placement admitted for worsening abscess.
Attempted to call patients daughter Sarina listed as POA - no answer. If patient here through will try again on Thursday morning.
Care Reviewed
Data Reviewed
Chest X ray: Image Reviewed
Radiology procedure: Image Reviewed
Medical Tests: I reviewed
[2024-09-16 15:30] VITALS: BP 108/57
[2024-09-16] MEDS: SENOKOT 8.6 MG PO (16:49)
[2024-09-16 17:01] VITALS: BP 108/57
[2024-09-16 23:23] VITALS: BP 113/62
[2024-09-17] MEDS: VANCOCIN 275 MG IV (05:41)
[2024-09-17 07:54] VITALS: BP 104/49
[2024-09-17] MEDS: MIRALAX 17 GRAMS PO (08:56)
[2024-09-17] MEDS: HEPARIN 5000 UNITS SC ×2 (08:57→20:50)
[2024-09-17] MEDS: FLORASTOR 250 MG PO (08:57)
[2024-09-17] MEDS: DESENEX/MITRAZOL/ZEASORB 1 APPLIC TOPICAL ×2 (08:58→20:49)
--- NOTE | 2024-09-17 09:21 | W.PN.UPDATE ---
Update Note
Progress Note Update
I saw and evaluated the patient. I reviewed the resident�s note and agree with findings and plan as documented in the resident�s note.
Patient denies any acute complaints.
Gen: remains NAD, Awake and alert
Eyes: EOMI, PERRLA, no scleral icterus.
Neck: supple.
CV: remains RRR, +S1/S2, no m/r/g.
Resp: remains CTAB, no rales, wheezes, or rhonchi.
Breast exam deferred
Neuro: CN 2-12 intact
Psych: Normal mood and affect.
L breast cyst biopsy complicated by cellulitis/abscess:
-Prior culture grew MRSA, cont vanco as per ID and breast surgery (Dr. Spaulding)
-IR exchanged L breast catheter on 09/16/24
-Dr. Spaulding not convinced that this will heal and she recommended a Palliative Care c/s. Palliative care saw on 09/16/2024 but was unable to reach family.
-cancer has been ruled out with biopsies; not surgical candidate if drain fails; declining health and failing skin for this period of time raises concern for end of life
Other problems:
Advanced dementia (likely Alzheimer's type) without behavioral disturbances
Severe protein calorie malnutrition
Heparin/DNR
--- NOTE | 2024-09-17 09:28 | W.PN.ID1 ---
Date of Service
Date of Service: September 17, 2024
Today's Communication
Continue antibiotics.
Assessment / Plan
Relapse of L Breast Abscess/Cellulitis
- Cx's from Sept with MRSA
Hx CVA with residual (L) hemiplegia
Recommendations:
- s/p catheter exchange to 8.5F
- Current wound cultures without growth.
- Continue vancomycin pending cx .MRSA isolates previously susceptible.
- Palliative care evaluation in progress.
����������������������������������������������������������
Chief Complaint
-: Other (breast abscess)
Subjective / Review of Systems
Review of Systems: No Fever
Vital Signs / Physical Exam
Vital Signs
Vital Signs
Temp Pulse Resp BP Pulse Ox
98.0 F 71 16 104/49 97
09/17/24 07:54 09/17/24 07:54 09/17/24 07:54 09/17/24 07:54 09/17/24 07:54
Physical Exam
Constitutional: No Acute Distress, Comfortable, Chronically Ill and Non-toxic
Eyes: Sclera Anicteric
Cardiovascular: S1/S2; Negative S3/S4
Gastrointestinal: Soft, Non Tender and Non Distended
Wound: Other (Left breast drain with cloudy bloody fluid, mild erythema left breast)
Neurological: Awake and Alert
Psychological: Calm and Confused
Objective Data
Lab Data
Estimated Creat Clear 57 ml/min 09/16/24 06:19
Total Bilirubin 0.4 mg/dl (0.2-1.3) 09/15/24 05:37
AST 21 U/L (14-36) 09/15/24 05:37
ALT 13 U/L (0-35) 09/15/24 05:37
Alkaline Phosphatase 100 U/L (38-126) 09/15/24 05:37
Most recent labs reviewed.
Micro Results:
09/15/24 17:05 Anaerobic Culture - Preliminary
Breast - Left Culture pending. Anaerobic cultures are examined after 3
days incubation. Additional information to follow.
09/15/24 17:05 Wound Culture - Preliminary
Breast - Left No growth
Gram Stain - Preliminary
--- NOTE | 2024-09-17 09:33 | W.PN.HOSP.TC ---
Addendum entered and electronically signed by Annie Leon MD, Resident 09/17/24 15:48:
Able to talk to patient's daughter Sarina (medical POA) on phone this afternoon. Discussed patient's breast abscess and skin failure, as well as recommendations of breast surgery and ID. She tells me her mother's recent baseline with dementia is that
she thinks her parents are still alive and living with her; she is happily unaware of issues with breast, drainage, length of custodial/hospital stay. Sarina and her family are very thankful that her mother has retained her kind personality and
happy mood even with confusion. I told her this is how patient has been in hospital so far, and she was pleased. Reviewed palliative care consult, and she is agreeable to meet over the phone to continue goals of care discussion. Informed her that
palliative care is off for and will be back Thursday; she hopes for a call Thursday morning, but is understanding it may be later in day. She says will update her brother and rest of family. She is appreciative of updates, and has no further
questions at this time.
Original Note:
Today's Communication/Plan
-
Will attempt to contact both children (daughter LAY, son secondary contact) to review goals of care
Assessment / Plan
Assessment / Plan
84yo F with PMH L breast abscess with DAVID drain, CVA with chronic L hemiplegia, dementia, who presented to ED 09/14/24 after outpatient breast US showed new area of drainage. She cannot provide history and is unaware of medical problems.
Breast abscess
Skin failure L breast
H/o L breast cyst biopsy complicated by cellulitis/abscess
- Prior culture grew MRSA. Cultures taken 09/15 pending.
- Currently on vancomycin. ID consulted, appreciate recs.
- IR consulted, unable to aspirate fluid collection; catheter exchanged 09/15 but may require I&D
- Breast surgery consulted- cancer has been ruled out with biopsies; not surgical candidate if drain fails; declining health and failing skin for this period of time raises concern for end of life, recommended palliative consult
- Previously reviewed palliative care recommendation with patient. She is agreeable though she has very poor insight. Palliative care following.
- Attempted to call daughter (POA) yesterday, unable to reach. Will attempt to call daughter again today as well as son (secondary contact) today to discuss goals of care.
- Continue wound care
Advanced dementia
- Pleasant demeanor, unaware of drain in L breast
- Poor insight and judgement
Protein calorie malnutrition
- Dietary supplementation per nutrition
Chronic L hemiplegia
Code status: DNR
VTE ppx: heparin sc
Diet: regular
Dispo planning: TBD; from [facility]
Anticipated Discharge: > 48 hours
Subjective/Interval History
-
Date of Service: September 17, 2024
No acute events overnight. Comfortable, no complaints. She is conversant appropriately, dementia apparent on further questioning- she states she lives with parents and older brothers who are in there 20's. She is very pleasant and unaware of her
medical problems. Unaware of drain in L breast. She denies lightheadedness, dizziness, chest pain, shortness of breath, nausea, vomiting. She is not in any pain. Tolerating PO diet.
Objective Data
-
Labs:
Laboratory Results
09/17/24
06:00
WBC Pending
Hgb Pending
Hct Pending
Plt Count Pending
Sodium Pending
Potassium Pending
Chloride Pending
Carbon Dioxide Pending
BUN Pending
Creatinine Pending
Glucose Pending
Calcium Pending
Vital Signs:
Vital Signs
Temp Pulse Resp BP Pulse Ox
98.0 F 71 16 104/49 97
09/17/24 07:54 09/17/24 07:54 09/17/24 07:54 09/17/24 07:54 09/17/24 07:54
I&O
09/16/24 09/17/24 09/18/24
06:59 06:59 06:59
Intake Total 900 / 900 480 / 480
Output Total 35 / 35 35 / 35
Balance 865 / 865 445 / 445
Review of Systems
-
Unable to obtain full review of systems at this time due to: Dementia
History Source: Patient
All other systems: Reviewed and negative
Physical Exam
-
General: Well Developed, Well Nourished, No Apparent Distress, Comfortable and Conversant
HEENT: Normocephalic and Atraumatic
Respiratory: Clear to Auscultation and Non Labored Respirations
Cardiac: Regular Rhythm and S1/S2
Breast: Other (L breast: DAVID drain in place, serosanguinous drainage, exam limited by pain/tenderness)
GI: Soft, Nontender, Nondistended and Normal Bowel Sounds
Musculoskeletal: No Edema and Other (feet in pressure-offloading boots)
Skin: Warm and Dry
Neuro: Awake, Alert and Nonfocal/Grossly Intact; Negative Oriented (oriented to person, knows she is hospital; states she is 17 or 18 years old, just graduated high school, lives with parents (60s) and older brothers (20s))
Psych: Calm and Apparent Dementia
[2024-09-17 11:15] LABS: Blood Urea Nitrogen 14 mg/dl (7-17); Calcium 9.4 mg/dl (8.4-10.2); Carbon Dioxide 19 mmol/L (22-30); Chloride 108 mmol/L (98-107); Estimated Creatinine Clearance 67 ml/min; Glucose 110 mg/dl (70-99); Potassium 4.7 mmol/L (3.5-5.1); Sodium 140 mmol/L (135-145); eGFR > 60.00
[2024-09-17 12:09] LABS: Hemoglobin 12.9 g/dL (12.0-16.0); Mean Corp Hgb Conc. 32.3 g/dL (33.0-37.0); Mean Corpuscular Hgb 26.7 pg (27.0-31.0); Mean Corpuscular Volume 82.6 fL (81.0-99.0); Mean Platelet Volume 10.6 fL (7.4-10.4); Platelet Count 322 10^3/uL (130-400); Red Blood Cell Count 4.84 10^6/uL (4.20-5.40); Red Cell Dist. Width 16.3 % (11.5-14.5); White Blood Cell Count 9.2 10^3/uL (4.8-10.8)
--- NOTE | 2024-09-17 12:56 | PHA.VAN.FU ---
Vancomycin Assessment / Plan
- Assessment
Renal Function: SCR Decreasing (0.7>0.5)
WBC's are: Trending Down (9.7>9.2)
In the past 24 hrs, patient has been: Afebrile
- Dosing Plan
Continue: Vancomycin 1250mg IV daily
- Monitoring Plan
Peak Level: Ordered for 09/18/24 at 09:00
Trough Level: Ordered for 09/19/24 at 05:30
- Follow Up
Pharmacy will continue to follow.
Vancomycin Follow UP
- -
Patient Age: 84
Patient Sex: Female
Vancomycin Day #: 4
Indication: Skin And Soft Tissue
Requesting Provider: Dr. Calzada / Rod[facility]
Pertinent Antimicrobial Allergies:
NKDA
Height / Weight:
Height 5 ft 7 in
Actual Weight 67.177 kg
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
- Vital Signs / Lab Results
Temp Pulse Resp BP Pulse Ox
98.0 F 71 16 104/49 95
09/17/24 07:54 09/17/24 07:54 09/17/24 07:54 09/17/24 07:54 09/17/24 08:00
Lab Results - Hematology
09/15/24 09/16/24 09/17/24
05:37 06:19 11:53
WBC 10.0 9.7 9.2
Lab Results - Chemistry
09/15/24 09/16/24 09/17/24
05:37 06:19 10:38
BUN 15 16 14
Creatinine 0.7 0.7 0.5 L
Estimated Creat Clear 57 57 67
Albumin 3.9
Microbiology Results
09/15/24 17:05 Anaerobic Culture - Preliminary
Breast - Left Culture pending. Anaerobic cultures are examined after 3
days incubation. Additional information to follow.
09/15/24 17:05 Wound Culture - Preliminary
Breast - Left Gram Stain - Preliminary
[2024-09-17 15:46] VITALS: BP 111/58
[2024-09-17] MEDS: SENOKOT 8.6 MG PO (18:14)
[2024-09-17 23:14] VITALS: BP 117/61
[2024-09-18] MEDS: VANCOCIN 275 MG IV (06:05)
[2024-09-18 07:27] VITALS: BP 121/47
[2024-09-18 09:10] LABS: Hematocrit 38.2 % (37.0-47.0); Hemoglobin 12.4 g/dL (12.0-16.0); Mean Corp Hgb Conc. 32.5 g/dL (33.0-37.0); Mean Corpuscular Hgb 26.7 pg (27.0-31.0); Mean Corpuscular Volume 82.3 fL (81.0-99.0); Mean Platelet Volume 10.7 fL (7.4-10.4); Platelet Count 261 10^3/uL (130-400); Red Blood Cell Count 4.64 10^6/uL (4.20-5.40); Red Cell Dist. Width 16.5 % (11.5-14.5); White Blood Cell Count 9.4 10^3/uL (4.8-10.8)
[2024-09-18 09:25] LABS: Blood Urea Nitrogen 13 mg/dl (7-17); Calcium 9.5 mg/dl (8.4-10.2); Carbon Dioxide 24 mmol/L (22-30); Chloride 104 mmol/L (98-107); Estimated Creatinine Clearance 57 ml/min; Glucose 97 mg/dl (70-99); Potassium 4.2 mmol/L (3.5-5.1); Sodium 138 mmol/L (135-145); eGFR > 60.00
[2024-09-18 09:27] LABS: Vancomycin Peak 36.6 ug/ml (18-26)
[2024-09-18] MEDS: MIRALAX 17 GRAMS PO (09:29)
[2024-09-18] MEDS: TYLENOL 650 MG PO ×2 (09:29→13:32)
[2024-09-18] MEDS: FLORASTOR 250 MG PO (09:30)
[2024-09-18] MEDS: HEPARIN 5000 UNITS SC ×2 (09:30→19:39)
[2024-09-18] MEDS: DESENEX/MITRAZOL/ZEASORB 1 APPLIC TOPICAL ×2 (09:34→19:39)
--- NOTE | 2024-09-18 10:29 | W.PN.HOSP.TC ---
Addendum entered and electronically signed by Elia Juarez MD 09/18/24 11:49:
I saw and evaluated the patient. I reviewed the resident�s note and agree with findings and plan as documented in the resident�s note.
Patient denies any acute complaints.
Gen: continues to remain NAD, Awake and alert
Eyes: EOMI, PERRLA, no scleral icterus.
Neck: supple.
CV: continues to remain RRR, +S1/S2, no m/r/g.
Resp: CTAB anteriorly, no rales, wheezes, or rhonchi.
Breast exam deferred
Neuro: CN 2-12 intact
Psych: Normal mood and affect.
L breast cyst biopsy complicated by cellulitis/abscess:
-Prior culture grew MRSA, cont vanco as per ID and breast surgery (Dr. Spaulding)
-IR exchanged L breast catheter on 09/16/24
-cancer has been ruled out with biopsies; not surgical candidate if drain fails; declining health and failing skin for this period of time raises concern for end of life
-Dr. Spaulding not convinced that this will heal and she recommended a Palliative Care c/s. Palliative care saw on 09/16/2024 but was unable to reach family. Family now reached and further discussions will be had tomorrow.
Other problems:
Advanced dementia (likely Alzheimer's type) without behavioral disturbances
Severe protein calorie malnutrition
Heparin/DNR
Original Note:
Today's Communication/Plan
-
Palliative care/goals of care discussion with daughter Sarina (POA) tomorrow
Assessment / Plan
Assessment / Plan
84yo F with PMH L breast abscess with DAVID drain, CVA with chronic L hemiplegia, dementia, who presented to ED 09/14/24 after outpatient breast US showed new area of drainage. She cannot provide history and is unaware of medical problems.
Breast abscess
Skin failure L breast
H/o L breast cyst biopsy complicated by cellulitis/abscess
- Prior culture grew MRSA. Cultures taken 10/24- final results pending.
- Leukocytosis 11.8 on admission resolved --> WBC 9.4 today
- Currently on vancomycin. ID consulted, appreciate recs.
- IR consulted, unable to aspirate fluid collection; catheter exchanged 09/15 but may require I&D
- Breast surgery consulted- cancer has been ruled out with biopsies; not surgical candidate if drain fails; declining health and failing skin for this period of time raises concern for end of life, recommended palliative consult
- Previously reviewed palliative care recommendation with patient. She is agreeable though she has very poor insight. Palliative care following.
- Updated daughter Sarina (POA) 09/17 on phone, she is on board with palliative consult for goals of care discussion- anticipates call on Thursday AM
- Continue wound care
Advanced dementia
- Pleasant demeanor, unaware of drain in L breast
- Poor insight and judgement
Protein calorie malnutrition
- Dietary supplementation per nutrition
Chronic L hemiplegia
Code status: DNR
VTE ppx: heparin sc
Diet: regular
Dispo planning: TBD; from [facility]
Anticipated Discharge: > 48 hours
Subjective/Interval History
-
Date of Service: September 18, 2024
No acute events overnight. Comfortable, no complaints. Conversant appropriately though confused. Very pleasant, unaware of medical problems. States she is enjoying the weather today and just got here about a half hour ago (dementia apparent). I told
her I talked to Sarina on the phone yesterday, and she knows this is her daughter- she is appreciative of updating her. Denies lightheadedness, dizziness, chest pain, shortness of breath, nausea, vomiting. She is not in any pain. Tolerating PO diet.
Objective Data
-
Labs:
Laboratory Results
09/18/24
08:50
WBC 9.4
Hgb 12.4
Hct 38.2
Plt Count 261
Sodium 138
Potassium 4.2
Chloride 104
Carbon Dioxide 24
BUN 13
Creatinine 0.7
Glucose 97
Calcium 9.5
Vital Signs:
Vital Signs
Temp Pulse Resp BP Pulse Ox
97 F 75 16 121/47 100
09/18/24 07:27 09/18/24 07:27 09/18/24 07:27 09/18/24 07:27 09/18/24 08:02
I&O
09/17/24 09/18/24 09/19/24
06:59 06:59 06:59
Intake Total 480 / 480 730 / 730
Output Total 35 / 35
Balance 445 / 445 700 / 700
Review of Systems
-
Unable to obtain full review of systems at this time due to: Dementia
History Source: Patient
All other systems: Reviewed and negative
Physical Exam
-
General: Well Developed, Well Nourished, No Apparent Distress, Comfortable and Conversant
HEENT: Normocephalic and Atraumatic
Respiratory: Non Labored Respirations
Cardiac: Regular Rhythm and S1/S2
Breast: Other (L breast: DAVID drain in place, serosanguinous drainage, exam limited by pain/tenderness)
GI: Soft, Nontender, Nondistended and Normal Bowel Sounds
Musculoskeletal: No Edema and Other (feet in pressure-offloading boots)
Skin: Warm and Dry
Neuro: Awake, Alert and Nonfocal/Grossly Intact; Negative Oriented (oriented to person, knows she is hospital; states she is 17 or 18 years old, just graduated high school, lives with parents (60s) and older brothers (20s))
Psych: Calm and Apparent Dementia
Data Reviewed
-
Ultrasound: Report Reviewed by me
Labs: Labs Reviewed by me
--- NOTE | 2024-09-18 11:20 | PHA.VAN.FU ---
Vancomycin Assessment / Plan
- Assessment
Renal Function: SCR Increasing (0.5>0.7)
WBC's are: Trending Up (9.2>9.4)
In the past 24 hrs, patient has been: Afebrile
- Assessment - Therapeutic Drug Monitoring
Extrapolated Cmax (mcg/mL): 36.6
Peak level was drawn: Appropriately (drawn about 1 hr 15 mins after dose finished infusing)
- Dosing Plan
Continue: Vancomycin 1250mg IV daily
- Monitoring Plan
Trough Level: Ordered for 09/19/24 at 05:30
- Follow Up
Pharmacy will continue to follow.
Vancomycin Follow UP
- -
Patient Age: 84
Patient Sex: Female
Vancomycin Day #: 5
Indication: Skin And Soft Tissue
Requesting Provider: Dr. Calzada / Rod[facility]
Pertinent Antimicrobial Allergies:
NKDA
Height / Weight:
Height 5 ft 7 in
Actual Weight 67.177 kg
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
- Vital Signs / Lab Results
Temp Pulse Resp BP Pulse Ox
97 F 75 16 121/47 100
09/18/24 07:27 09/18/24 07:27 09/18/24 07:27 09/18/24 07:27 09/18/24 08:02
Lab Results - Hematology
09/16/24 09/17/24 09/18/24
06:19 11:53 08:50
WBC 9.7 9.2 9.4
Lab Results - Chemistry
09/16/24 09/17/24 09/18/24
06:19 10:38 08:50
BUN 16 14 13
Creatinine 0.7 0.5 L 0.7
Estimated Creat Clear 57 67 57
Microbiology Results
09/15/24 17:05 Anaerobic Culture - Preliminary
Breast - Left Culture pending. Anaerobic cultures are examined after 3
days incubation. Additional information to follow.
09/15/24 17:05 Wound Culture - Preliminary
Breast - Left Gram Stain - Preliminary
Therapeutic Drug Monitoring
Vancomycin Peak 36.6 ug/ml (18-26) H 09/18/24 08:50
[2024-09-18 15:50] VITALS: BP 104/51
[2024-09-18] MEDS: SENOKOT 8.6 MG PO (17:27)
[2024-09-18] MEDS: ZOFRAN 4 MG PO (17:35)
--- NOTE | 2024-09-18 18:38 | PTCARENOTE ---
patient transferred to from . Patient aaox3, denies pain or discomfort, call oleary within reach.
[2024-09-18 23:16] VITALS: BP 109/68
[2024-09-19 07:00] VITALS: BP 105/54
[2024-09-19 07:28] LABS: Hemoglobin 12.1 g/dL (12.0-16.0); Mean Corp Hgb Conc. 32.7 g/dL (33.0-37.0); Mean Corpuscular Hgb 27.1 pg (27.0-31.0); Mean Corpuscular Volume 82.8 fL (81.0-99.0); Mean Platelet Volume 11.3 fL (7.4-10.4); Platelet Count 286 10^3/uL (130-400); Red Blood Cell Count 4.47 10^6/uL (4.20-5.40); Red Cell Dist. Width 16.4 % (11.5-14.5); White Blood Cell Count 8.6 10^3/uL (4.8-10.8)
[2024-09-19 08:10] LABS: Vancomycin Trough 16.6 ug/ml (5-20)
--- NOTE | 2024-09-19 08:20 | W.PN.HOSP.TC ---
Addendum entered and electronically signed by Elia Juarez MD 09/19/24 12:31:
I saw and evaluated the patient. I reviewed the resident�s note and agree with findings and plan as documented in the resident�s note.
No new complaints.
Gen: NAD, Awake and alert
Eyes: EOMI, PERRLA, no scleral icterus.
Neck: supple.
CV: RRR, +S1/S2, no m/r/g.
Resp: CTAB anteriorly, no rales, wheezes, or rhonchi.
Breast exam deferred
Neuro: CN 2-12 intact
Psych: Normal mood and affect.
Pt is now going to be discharged on hospice. Plan from 09/18/24 was as follows:
L breast cyst biopsy complicated by cellulitis/abscess:
-Prior culture grew MRSA, cont vanco as per ID and breast surgery (Dr. Spaulding)
-IR exchanged L breast catheter on 09/16/24
-cancer has been ruled out with biopsies; not surgical candidate if drain fails; declining health and failing skin for this period of time raises concern for end of life
-Dr. Spaulding not convinced that this will heal and she recommended a Palliative Care c/s. Palliative care saw on 09/16/2024 but was unable to reach family. Family now reached and further discussions will be had tomorrow.
Other problems:
Advanced dementia (likely Alzheimer's type) without behavioral disturbances
Severe protein calorie malnutrition
Heparin/DNR
Original Note:
Today's Communication/Plan
-
palliative care GOC discussion with daughter Sarina today
Assessment / Plan
Assessment / Plan
84yo F with PMH L breast abscess with DAVID drain, CVA with chronic L hemiplegia, dementia, who presented to ED 09/14/24 after outpatient breast US showed new area of drainage. She cannot provide history and is unaware of medical problems.
Breast abscess
Skin failure L breast
H/o L breast cyst biopsy complicated by cellulitis/abscess
- Prior culture grew MRSA. Cultures taken 09/15- final results pending.
- Leukocytosis 11.8 on admission resolved --> WBC 8.6 today
- Currently on vancomycin. ID consulted, appreciate recs. Will reassess antibiotics prn or when culture data results
- IR consulted, unable to aspirate fluid collection; s/p catheter exchanged 09/15 but may require I&D
- Breast surgery consulted- cancer has been ruled out with biopsies; not surgical candidate if drain fails; declining health and failing skin for this period of time raises concern for end of life, recommended palliative consult
- Previously reviewed palliative care recommendation with patient. She is agreeable though she has very poor insight. Palliative care following.
- Updated daughter Sarina (POA) 09/17 on phone, she is on board with palliative consult for goals of care discussion- anticipates call this AM
- Continue wound care
Advanced dementia
- Pleasant demeanor, unaware of drain in L breast
- Poor insight and judgement
- At times this admission has stated she is 18-19yo, recently graduated high school, lives with parents (in their 60s). She knows Sarina is her daughter. Very pleasant. Daughter states this is baseline.
Protein calorie malnutrition
- Dietary supplementation per nutrition
Chronic L hemiplegia
Code status: DNR
VTE ppx: heparin sc
Diet: regular
[facility]
Anticipated Discharge: > 48 hours
Subjective/Interval History
-
Date of Service: September 19, 2024
No acute events overnight. Comfortable, no complaints, not in any pain. Conversant appropriately, though dementia apparent. Denies lightheadedness, dizziness, chest pain, shortness of breath, nausea, vomiting. Tolerating PO diet.
Objective Data
-
Labs:
Laboratory Results
09/19/24
06:48
WBC 8.6
Hgb 12.1
Hct 37.0
Plt Count 286
Sodium Pending
Potassium Pending
Chloride Pending
Carbon Dioxide Pending
BUN Pending
Creatinine Pending
Glucose Pending
Calcium Pending
Vital Signs:
Vital Signs
Temp Pulse Resp BP Pulse Ox
98.0 F 82 16 109/68 97
09/18/24 23:16 09/18/24 23:16 09/18/24 23:16 09/18/24 23:16 09/18/24 23:16
I&O
09/18/24 09/19/24 09/20/24
06:59 06:59 06:59
Intake Total 730 / 730 240 / 240
Output Total 30 / 30 35 / 35
Balance 700 / 700 205 / 205
Review of Systems
-
Unable to obtain full review of systems at this time due to: Dementia
History Source: Patient
All other systems: Reviewed and negative
Physical Exam
-
General: Well Developed, Well Nourished, No Apparent Distress, Comfortable and Conversant
HEENT: Normocephalic and Atraumatic
Respiratory: Non Labored Respirations
Cardiac: Regular Rhythm
Breast: Other (L breast: DAVID drain in place, serosanguinous drainage, exam limited by pain/tenderness)
GI: Soft, Nontender and Nondistended
Musculoskeletal: No Edema and Other (feet in pressure-offloading boots)
Skin: Warm and Dry
Neuro: Awake, Alert and Nonfocal/Grossly Intact; Negative Oriented
Psych: Calm and Apparent Dementia
Data Reviewed
-
Ultrasound: Report Reviewed by me
Labs: Labs Reviewed by me
[2024-09-19 08:46] LABS: Blood Urea Nitrogen 13 mg/dl (7-17); Calcium 9.4 mg/dl (8.4-10.2); Carbon Dioxide 24 mmol/L (22-30); Chloride 106 mmol/L (98-107); Estimated Creatinine Clearance 57 ml/min; Glucose 94 mg/dl (70-99); Potassium 4.4 mmol/L (3.5-5.1); Sodium 140 mmol/L (135-145); eGFR > 60.00
--- NOTE | 2024-09-19 08:57 | PHA.VAN.FU ---
Vancomycin Assessment / Plan
- Assessment
Renal Function: Stable
WBC's are: WNL
In the past 24 hrs, patient has been: Afebrile
- Assessment - Therapeutic Drug Monitoring
Extrapolated Cmax (mcg/mL): 38.3
Peak level was drawn: Appropriately (drawn ~1.25H after end of previous infusion)
Extrapolated Cmin (mcg/mL): 17
Trough Drawn: Appropriately
Levels were drawn: At steady state (levels drawn after 4th maintenance dose)
Calculated AUC (mcg*h/mL): 632
Calculated ke: 0.0360
Calculated half life (H): 19.3
Calculated Vd (L): 55 (0.8 L/kg)
Calculated Vanc CL (ml/min): 33
- Dosing Plan
Adjust Regimen to: Vanc 1000mg Q24H
New Regimen Predicts: AUC (515), Peak (31.5), Trough (13.7)
Vanc 1250mg not yet given today - order d/c'ed and changed to Vanc 1000mg Q24H based on patient-specific PK
- Monitoring Plan
No level(s) ordered at this time: consider repeat levels in next few days
- Follow Up
Pharmacy will continue to follow.
Vancomycin Follow UP
- -
Patient Age: 84
Patient Sex: Female
Vancomycin Day #: 6
Indication: Skin And Soft Tissue
Requesting Provider: Dr. Calzada / Rod[facility]
Pertinent Antimicrobial Allergies:
NKDA
Height / Weight:
Height 5 ft 7 in
Actual Weight 67.177 kg
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
- Vital Signs / Lab Results
Temp Pulse Resp BP Pulse Ox
98.0 F 82 16 109/68 97
09/18/24 23:16 09/18/24 23:16 09/18/24 23:16 09/18/24 23:16 09/18/24 23:16
Lab Results - Hematology
09/17/24 09/18/24 09/19/24
11:53 08:50 06:48
WBC 9.2 9.4 8.6
Lab Results - Chemistry
09/17/24 09/18/24 09/19/24
10:38 08:50 06:48
BUN 14 13 13
Creatinine 0.5 L 0.7 0.7
Estimated Creat Clear 67 57 57
Microbiology Results
09/15/24 17:05 Anaerobic Culture - Preliminary
Breast - Left Culture pending. Anaerobic cultures are examined after 3
days incubation. Additional information to follow.
09/15/24 17:05 Wound Culture - Preliminary
Breast - Left Gram Stain - Preliminary
Therapeutic Drug Monitoring
Vancomycin Peak 36.6 ug/ml (18-26) H 09/18/24 08:50
Vancomycin Trough 16.6 ug/ml (5-20) 09/19/24 06:48
--- NOTE | 2024-09-19 11:01 | W.PN.PAL2 ---
Today's Communication
-
spoke with daughter - agreeable for hospice back at [place]
Assessment / Plan
-
Assessment/Plan:
84 year old F with dementia and non healing L breast abscess s/p drain placement admitted for worsening abscess.
Daughter agreeable to hospice back at [place] once medically ready for discharge. CM updated.
Reason for Admission
Illness Course/HPI
84 year old F with dementia, severe protein priscilla malnutrition, CVA with L sided weakness and recurrent/nonhealing L breast cyst/abscess s/p drain placement admitted from residential with worsening L breast wound.
Per chart review, has had recurrent L breast cyst/abscess with cellulitis. Previous drain placement with +MRSA s/p antibiotics. Now with recurrence and skin failure, poorly draining. Seen by surgery and IR - not a surgical candidate. New drain
placed 09/15, +viscous contents and drain not likely to clear infection.
Functional Status
bed/wheelchair bound
Goals of Care Discussion
-
Individuals Present for Discussion & Relationship to Patient:
daughter Sarina
Patient able to participate in discussion at time of visit: No
Patient Goals
Spoke with dtr Sarina - discussed recurrent/non healing abscess and concern for ongoing complications and inability to cure with drain and antibiotics alone. States patient was on hospice many years ago, came off when she moved from [facility] to [place].
Discussed if goal is to not bring her back and forth to the hospital for wound issues/infection, hospice would be appropriate. She is agreeable to this. Used [facility] in the past, would want to use them again if possible at [place]. Team and CM
updated.
Pain & Symptom Assessment
[place] Symptom Scale 0=none, 10=worst
Pain: 0
Objective Data
-
Objective Data:
Vital Signs
Temp Pulse Resp BP Pulse Ox
97.8 F 67 18 105/54 98
09/19/24 07:00 09/19/24 07:00 09/19/24 07:00 09/19/24 07:00 09/19/24 07:00
Laboratory Results
09/19/24 06:48
09/19/24 06:48
Total Protein 7.1 g/dl (6.3-8.2) 09/15/24 05:37
Albumin 3.9 g/dl (3.5-5.0) 09/15/24 05:37
Palliative Performance Scale
Palliative Performance Scale:
PPS Level Ambulation Activity & Evidence of Disease Self Care Intake Conscious Level
100% Full Normal Activity & Work; Full Intake Full
No Evidence of Disease
90% Full Normal Activity & Work; Full Normal Full
Some Evidence of Disease
80% Full Normal Activity with Effort Full Normal or Full
Some Evidence of Disease Reduced
70% Reduced Unable Normal Job/Work Full Normal or Full
Significant Disease Reduced
60% Reduced Unable Hobby/Housework Occasional Normal or Full or Confusion
Significant Disease Assistance Reduced
50% Mainly Sit/Lie Unable to do Any Work Considerable Normal or Full or Confusion
Extensive Disease Assistance Req'd Reduced
40% Mainly in Bed Unable to do Most Activity Mainly Assistance Normal or Full or Drowsy;
Extensive Disease Reduced +/- Confusion
30% Totally Bed Unable to do Any Activity Total Care Normal or Full or Drowsy;
Bound Extensive Disease Reduced +/- Confusion
20% Totally Bed Bound Unable to do Any Activity Total Care Minimal to Full or Drowsy;
Extensive Disease Sips +/- Confusion
10% Totally Bed Bound Unable to do Any Activity Total Care Mouth Care Drowsy or Coma;
Extensive Disease Only +/- Confusion
0%
PPS Score Level:
Physical Exam
-
General: No Apparent Distress and Comfortable
HEENT: Normocephalic
Respiratory: Clear to Auscultation
Cardiac: Regular Rhythm
Peripheral Vascular: No Edema
Breast: Other (L breast with drain )
GI: Soft and Nondistended
Skin: Warm
Neuro: Awake
Psych: Confused and Apparent Dementia
Care Reviewed
Data Reviewed
Radiology procedure: Image Reviewed
Medical Tests: I reviewed
[2024-09-19] MEDS: VANCOCIN 200 IV (11:18)
--- NOTE | 2024-09-19 11:37 | W.PN.ID1 ---
Date of Service
Date of Service: September 19, 2024
Today's Communication
- patient for discharge on hospice - would stop antibiotics
Assessment / Plan
Relapse of L Breast Abscess/Cellulitis
- Cx's from Sept with MRSA
Hx CVA with residual (L) hemiplegia
Recommendations:
- patient for discharge on hospice - would stop antibiotics
����������������������������������������������������������
Chief Complaint
-: Other (breast abscess - recurrent)
Subjective / Review of Systems
afebrile
bp stable
for discharge on hospice
Vital Signs / Physical Exam
Vital Signs
Vital Signs
Temp Pulse Resp BP Pulse Ox
97.8 F 67 18 105/54 98
09/19/24 07:00 09/19/24 07:00 09/19/24 07:00 09/19/24 07:00 09/19/24 07:00
Physical Exam
Constitutional: No Acute Distress
Cardiovascular: Regular Rate
Pulmonary: Symmetric and Non Labored
Gastrointestinal: Non Distended
Neurological: Awake and Alert
Objective Data
Lab Data
Lab Results
09/19/24 06:48
09/19/24 06:48
Estimated Creat Clear 57 ml/min 09/19/24 06:48
Total Bilirubin 0.4 mg/dl (0.2-1.3) 09/15/24 05:37
AST 21 U/L (14-36) 09/15/24 05:37
ALT 13 U/L (0-35) 09/15/24 05:37
Alkaline Phosphatase 100 U/L (38-126) 09/15/24 05:37
Most recent labs reviewed.
Micro Results:
09/15/24 17:05 Anaerobic Culture - Preliminary
Breast - Left Culture pending. Anaerobic cultures are examined after 3
days incubation. Additional information to follow.
09/15/24 17:05 Wound Culture - Preliminary
Breast - Left Gram Stain - Preliminary
[2024-09-19] MEDS: DESENEX/MITRAZOL/ZEASORB 1 APPLIC TOPICAL (11:40)
[2024-09-19] MEDS: FLORASTOR 250 MG PO (11:40)
[2024-09-19] MEDS: HEPARIN 5000 UNITS SC (11:40)
[2024-09-19] MEDS: MIRALAX 17 GRAMS PO (11:41)
--- NOTE | 2024-09-19 12:19 | W.DCSUMMARY ---
Addendum entered and electronically signed by Elia Juarez MD 09/20/24 17:19:
.
Addendum entered and electronically signed by Annie Leon MD, Resident 09/20/24 17:15:
Edit: Date of discharge 09/20/24
Addendum entered and electronically signed by Elia Juarez MD 09/19/24 13:09:
Read, reviewed, and agree. See same day progress note for additional details. Time spent coordinating care, DC planning, review of DC plan of care with resident, transition of care, review of records in EMR, med rec, consults, notes, d/w
consultants, nursing, family, and CM = 32 mins
Original Note:
Discharge Summary
Discharge Data
Date of Admission: 09/14/24
Date of Discharge: 09/19/24
-
Pending Results: Yes
Additional Pending Results:
09/15/24 17:05 Anaerobic Culture - Preliminary
Breast - Left Culture pending. Anaerobic cultures are examined after 3
days incubation. Additional information to follow.
09/15/24 17:05 Wound Culture - Preliminary
Breast - Left Gram Stain - Preliminary
Hospital Course
Discharging Physician : Dr. Leon, Dr. Juarez
Disposition : Outpatient Hospice
Primary care physician : Unknown
Principal Discharge diagnosis : Left breast abscess, skin failure of left breast, advanced dementia
Chronic Discharge diagnosis : Advanced dementia, chronic left hemiplegia, protein calorie malnutrition
Hospital Course : Presented to ED 09/14/24 after outpatient breast ultrasound showed new area of drainage. She had an existing DAVID drain in left breast prior to admission. Breast surgery, infectious diseases, interventional radiology, and palliative
care were consulted this admission. She was treated with IV antibiotics and exchange of breast drain. She was not a candidate for surgery. She remained markedly confused throughout hospitalization, which is her baseline due to advanced dementia.
Decision was made by family to transition to hospice. She was discharged from hospital to return to [facility] to pursue outpatient hospice.
Important imaging findings :
Breast ultrasound 09/14/24
FINDINGS:
Complex collection is again noted on the left at the 11:00 position measuring approximately 6.5 x 3.5 x 6.0 cm. This extends to the skin surface. There is a drainage catheter seen within the collection.
IMPRESSION: Complex collection is again noted with drainage catheter. This does extend to the skin surface.
Procedure findings :
IR abscess drainage and tube change 09/15/24
IMPRESSION:
Indwelling drainage catheter was well positioned within the left breast fluid collection. Given inability to aspirate the indwelling catheter, it was exchanged for a new catheter. Despite the new catheter being well positioned within the collection
and patent, this catheter was unable to be aspirated. The likelihood is that this collection is an old hematoma containing chronic coagulated blood products which are not amenable to percutaneous drainage. Consideration should be made for incision
and drainage at this point.
Discharge Plan
-
Patient Disposition: [facility]/SNF
Discharge Diagnosis/Procedures: Breast abscess of left breast, skin failure of left breast, advanced dementia
Condition: Serious
Diet: No restrictions and Regular
Activity: As tolerated
Driving Restrictions: No driving
Bathing Restrictions: OK to Shower
Other Services: Hospice
Activity Restrictions/Additional Instructions:
Wound Care Instructions Left Breast Wound- Clean with normal saline or soap and water. Apply thin layer of Vaseline. May cover with dry dressing or leave open air.
Air bed
Keep heels off-loaded with pillows or air cushion under calves
Turning schedule
Referrals:
UNKNOWN - PT DOES,NOT KNOW [Family Provider] - (Follow up with hospice team when you are discharged from hospital)
Additional Discharge Medication Instructions: Please follow up with hospice team regarding medication changes
Prescriptions:
Continued
acetaminophen [Tylenol] 325 mg Tablet
650 mg PO Q4HPRN PRN (Reason: mild pain/fever >100.4)
magnesium hydroxide [Milk of Magnesia] 400 mg/5 mL Suspension
30 ml PO DAILYPRN PRN (Reason: constipation)
bisacodyl [Dulcolax (bisacodyl)] 10 mg Suppository
10 mg ME DAILYPRN PRN (Reason: constipation, mom ineffective)
Fleet Enema 19-7 gram/118 mL Enema
118 ml ME DAILYPRN PRN (Reason: if dulcolax ineffective)
sennosides [senna] 8.6 mg Tablet
8.6 mg PO QPM Qty: 0 0RF
polyethylene glycol 3350 [Miralax] 17 gram Powder In Packet
17 g PO DAILY Qty: 0 0RF
ondansetron HCl 4 mg Tablet
4 mg PO Q6HPRN PRN (Reason: nausea)
tramadol 50 mg Tablet
50 mg PO [id number] PRN (Reason: severe pain)
Saccharomyces boulardii [Florastor] 250 mg Capsule
250 mg PO DAILY
Discontinued
sulfamethoxazole-trimethoprim [Bactrim DS] 800-160 mg Tablet
1 tab PO BID
Discharge Date and Time
Print Language: [place]
[2024-09-19 15:00] VITALS: BP 106/63
[2024-09-19] MEDS: ZOFRAN 4 MG PO (15:36)
--- NOTE | 2024-09-19 16:50 | CM ---
Addendum entered by MAYE Connolly 09/19/24 17:13:
Attending cancelled discharge, to confirm plan prior to patient leaving. Left a message for patient's son to update on voice mail. Yariel in admissions notified. service order clerk notified. Transport team updated as to cancellation.
Original Note:
Received message from attending that patient is medically cleared for discharge. Placed a call to patient's son Gio who stated that he spoke with [patient's daughter who is poa and they would like for patient to return back to [facility] and they
are not quite ready for hospice. Called Yariel in admissions at [facility] who stated that they can accept patient back [facility] # for report [phone] and fax# [phone].
Medical necessity and transfer sheet provided to [facility] community relations advisor who arranged for ambulance transport-time 18:00.
IMM reviewed with son and on chart.
Plan: Case management will continue to follow and assist with discharge planning. Return to [facility] tonight. Attending updated.
--- NOTE | 2024-09-19 17:01 | W.PN.UPDATE ---
Update Note
Progress Note Update
Patient's family is now declining hospice. For this reason discharge needs to be delayed to solidify a final medical treatment plan.
[2024-09-19] MEDS: SENOKOT PO (17:23)
[2024-09-19 23:18] VITALS: BP 108/75
[2024-09-20] MEDS: DESENEX/MITRAZOL/ZEASORB 1 APPLIC TOPICAL ×2 (02:07→08:15)
[2024-09-20] MEDS: HEPARIN 5000 UNITS SC ×2 (02:07→08:13)
[2024-09-20] MEDS: VANCOCIN 200 IV (05:32)
[2024-09-20 07:00] VITALS: BP 112/56
[2024-09-20 08:14] LABS: Hematocrit 37.1 % (37.0-47.0); Mean Corp Hgb Conc. 32.3 g/dL (33.0-37.0); Mean Corpuscular Hgb 26.7 pg (27.0-31.0); Mean Corpuscular Volume 82.6 fL (81.0-99.0); Platelet Count 259 10^3/uL (130-400); Red Blood Cell Count 4.49 10^6/uL (4.20-5.40); Red Cell Dist. Width 16.3 % (11.5-14.5); White Blood Cell Count 9.4 10^3/uL (4.8-10.8)
[2024-09-20] MEDS: FLORASTOR 250 MG PO (08:14)
[2024-09-20] MEDS: MIRALAX 17 GRAMS PO (08:14)
--- NOTE | 2024-09-20 08:44 | W.PN.HOSP.TC ---
Addendum entered and electronically signed by Elia Juarez MD 09/20/24 12:58:
I saw and evaluated the patient. I reviewed the resident�s note and agree with findings and plan as documented in the resident�s note.
No new complaints.
Gen: remains NAD, Awake and alert
Eyes: EOMI, PERRLA, no scleral icterus.
Neck: supple.
CV: remains RRR, +S1/S2, no m/r/g.
Resp: remains CTAB anteriorly, no rales, wheezes, or rhonchi.
Breast exam deferred
Neuro: CN 2-12 intact
Psych: Normal mood and affect.
Pt is now going to be discharged on hospice. Plan from 09/18/24 was as follows:
L breast cyst biopsy complicated by cellulitis/abscess:
-Prior culture grew MRSA, cont vanco as per ID and breast surgery (Dr. Spaulding)
-IR exchanged L breast catheter on 09/16/24
-cancer has been ruled out with biopsies; not surgical candidate if drain fails; declining health and failing skin for this period of time raises concern for end of life
-Dr. Spaulding not convinced that this will heal and she recommended a Palliative Care c/s. Palliative care saw on 09/16/2024 but was unable to reach family. Family now reached and further discussions will be had tomorrow.
Other problems:
Advanced dementia (likely Alzheimer's type) without behavioral disturbances
Severe protein calorie malnutrition
Heparin/DNR
Addendum entered and electronically signed by Annie Leon MD, Resident 09/20/24 12:48:
Update: I spoke on phone to daughter Sarina (POA) and son Rene, who are both in agreement with plan to discharge from hospital to [facility] today. From there, they will then initiate hospice through the agency of their choice- [facility].
Sarina says they only declined DH setting up hospice because they want to stick with [facility] and had good experiences with them in the past.
Plan to discharge to OR today
Will sign out of hospital DNR with POA
Maintain breast drain at discharge in case providing palliative relief- defer to hospice team
Family to make hospice arrangements outpatient
Discussed with CM, breast surgery, ID
Original Note:
Today's Communication/Plan
-
GOC to be discussed with family
Assessment / Plan
Assessment / Plan
84yo F with PMH L breast abscess with DAVID drain, CVA with chronic L hemiplegia, dementia, who presented to ED 09/14/24 after outpatient breast US showed new area of drainage. She cannot provide history and is unaware of medical problems.
Breast abscess
Skin failure L breast
H/o L breast cyst biopsy complicated by cellulitis/abscess
- Prior culture grew MRSA. Cultures taken 09/15- final results pending.
- Leukocytosis 11.8 on admission resolved --> WBC 9.4 today
- Currently on vancomycin. ID consulted, appreciate recs. Will reassess antibiotics prn or when culture data results. Continue wound care.
- IR consulted, unable to aspirate fluid collection; s/p catheter exchanged 09/15 but may require I&D
- Breast surgery consulted- cancer has been ruled out with biopsies; not surgical candidate if drain fails; declining health and failing skin for this period of time raises concern for end of life, recommended palliative consult
- Previously reviewed palliative care recommendation with patient. She is agreeable though she has very poor insight. Palliative care following.
- I updated daughter Sarina (POA) 09/17 on phone, she is on board with palliative consult for goals of care discussion. Palliative Care discussed with daughter 09/19 and decision was made to discharge to hospice. Discharge was ready then cancelled
due to family then declining hospice.
- Will attempt to contact both daughter and son to discuss goals, Palliative following.
Advanced dementia
- Pleasant demeanor, unaware of drain in L breast
- Poor insight and judgement
- At times this admission has stated she is 18-19yo, recently graduated high school, lives with parents (in their 60s). She knows Sarina is her daughter. Very pleasant. Daughter states this is baseline.
Protein calorie malnutrition
- Dietary supplementation per nutrition
Chronic L hemiplegia
Code status: DNR
VTE ppx: heparin sc
Diet: regular
Dispo planning: TBD; from [facility]
Anticipated Discharge: Within 24 hours
Subjective/Interval History
-
Date of Service: September 20, 2024
No acute events overnight. Comfortable, no complaints, not in any pain. Conversant appropriately, though dementia apparent. Denies lightheadedness, dizziness, chest pain, shortness of breath, nausea, vomiting, diarrhea, constipation. Tolerating PO
diet.
Objective Data
-
Labs:
Laboratory Results
09/20/24
07:20
WBC 9.4
Hgb 12.0
Hct 37.1
Plt Count 259
Sodium Pending
Potassium Pending
Chloride Pending
Carbon Dioxide Pending
BUN Pending
Creatinine Pending
Glucose Pending
Calcium Pending
Vital Signs:
Vital Signs
Temp Pulse Resp BP Pulse Ox
97.8 F 74 18 112/56 99
09/20/24 07:00 09/20/24 07:00 09/20/24 07:00 09/20/24 07:00 09/20/24 07:00
I&O
09/19/24 09/20/24 09/21/24
06:59 06:59 06:59
Intake Total 240 / 240 480 / 480
Output Total 35 / 35
Balance 205 / 205 450 / 450
Review of Systems
-
Unable to obtain full review of systems at this time due to: Dementia
History Source: Patient
All other systems: Reviewed and negative
Physical Exam
-
General: Well Developed, Well Nourished, No Apparent Distress, Comfortable and Conversant
HEENT: Normocephalic and Atraumatic
Respiratory: Clear to Auscultation and Non Labored Respirations
Cardiac: Regular Rhythm and S1/S2
Breast: Other (L breast: DAVID drain in place, serosanguinous drainage, exam limited by pain/tenderness)
GI: Soft, Nontender, Nondistended and Normal Bowel Sounds
Musculoskeletal: No Edema and Other (feet in pressure-offloading boots)
Skin: Warm and Dry
Neuro: Awake, Alert and Nonfocal/Grossly Intact; Negative Oriented
Psych: Calm and Apparent Dementia
Data Reviewed
-
Ultrasound: Report Reviewed by me
Labs: Labs Reviewed by me
[2024-09-20 09:19] LABS: Blood Urea Nitrogen 10 mg/dl (7-17); Calcium 9.3 mg/dl (8.4-10.2); Carbon Dioxide 22 mmol/L (22-30); Chloride 104 mmol/L (98-107); Estimated Creatinine Clearance 67 ml/min; Glucose 106 mg/dl (70-99); Potassium 4.3 mmol/L (3.5-5.1); Sodium 141 mmol/L (135-145); eGFR > 60.00
--- NOTE | 2024-09-20 13:09 | CM ---
Addendum entered by Tasha Washington 09/20/24 13:58:
Patient scheduled for 2:45 ambulance transport, [facility] admissions updated, daughter updated.
Report: [phone]

Original Note:
CM reviewed chart, per Resident, spoke with patients daughter and son, both family members in agreement for patient to return to [facility] with [facility]. [facility]. CM spoke with patients daughter/POA, confirmed plan for patient to return to [facility] with [facility]. Patient will need ambulance transport. CM will continue to follow for all discharge planning needs.
Plan; return to [facility] with [facility], awaiting ambulance transport time.
[facility]:
Report# [phone]
.
[2024-09-20 14:21] VITALS: BP 127/67
--- NOTE | 2024-09-20 14:59 | PHA.VAN.FU ---
Vancomycin Assessment / Plan
- Assessment
Renal Function: Stable
WBC's are: WNL
In the past 24 hrs, patient has been: Afebrile
- Dosing Plan
Continue: Vanc 1000mg Q24H (adjusted 09/19)
- Monitoring Plan
No level(s) ordered at this time: hold off on repeat levels for now
- Follow Up
Pharmacy will continue to follow.
Vancomycin Follow UP
- -
Patient Age: 84
Patient Sex: Female
Vancomycin Day #: 7
Indication: Skin And Soft Tissue
Requesting Provider: Dr. Calzada / [facility]
Pertinent Antimicrobial Allergies:
NKDA
Height / Weight:
Height 5 ft 7 in
Actual Weight 67.177 kg
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
- Vital Signs / Lab Results
Temp Pulse Resp BP Pulse Ox
98.4 F 96 18 127/67 99
09/20/24 14:21 09/20/24 14:21 09/20/24 14:21 09/20/24 14:21 09/20/24 14:21
Lab Results - Hematology
09/18/24 09/19/24 09/20/24
08:50 06:48 07:20
WBC 9.4 8.6 9.4
Lab Results - Chemistry
09/18/24 09/19/24 09/20/24
08:50 06:48 07:20
BUN 13 13 10
Creatinine 0.7 0.7 0.6
Estimated Creat Clear 57 57 67
Microbiology Results
09/15/24 17:05 Wound Culture - Final
Breast - Left Gram Stain - Final
09/15/24 17:05 Anaerobic Culture - Final
Breast - Left NO ANAEROBES ISOLATED
Therapeutic Drug Monitoring
Vancomycin Peak 36.6 ug/ml (18-26) H 09/18/24 08:50
Vancomycin Trough 16.6 ug/ml (5-20) 09/19/24 06:48
== END 2024-09-20 15:38 | DRG 600 ==
LOC: 4 WEST ACU 18:25
PROVIDERS: Radiology Diagnostic Radiology; Student in an Organized Health Care Education/Training Program; ADMITTING PHYSICIAN Hospitalist; ATTENDING PHYSICIAN Internal Medicine; CONSULT PHYSICIAN Surgery; EMERGENCY PHYSICIAN Emergency Medicine; OTHER PHYSICIAN Nurse Practitioner Gerontology; OTHER PHYSICIAN Student in an Organized Health Care Education/Training Program
PROC: 0H9U3ZZ Drainage of Left Breast, Percutaneous Approach (ICD-10-PCS; 2024-09-15)
PROC: 0H9U30Z Drainage of Left Breast with Drainage Device, Percutaneous Approach (ICD-10-PCS; 2024-09-16)
DX: N61.1 Abscess of the breast and nipple (principal); E43 Unspecified severe protein-calorie malnutrition; I69.354 Hemiplegia and hemiparesis following cerebral infarction affecting left non-dominant side; L03.90 Cellulitis, unspecified; Z86.14 Personal history of Methicillin resistant Staphylococcus aureus infection; Z68.23 Body mass index [BMI] 23.0-23.9, adult
CPT/HCPCS: 49423; 75984; 76642; 80048; 80053; 80202; 85025; 85027; 87070; 87075; 87205; 96365; 99285; C1729; C1769